=== PATIENT | female | born 1945 | race Caucasian/White ===

== ENCOUNTER → 2016-12-09 | Outpatient (CLI) | payer OTHER ==
[~2016-12-09] MED LIST: ASPCH81X PO; CLON0.2T11 PO; DILT-113 PO; GLIP-199 PO; LEVO75TA5 PO; LOSA1TAB38 PO; LVMI SC; POTA99TA PO; PRVC20 PO; VITAMIN B PO
[2016-12-09 17:27] LABS: BASO % 0.4 %; BASO ABS # 0.01 K/uL (0-0.2); COMPLETE YES; EOS % 1.5 %; HEMATOCRIT 35.3 % (37-47); LYMPH % 20.7 %; LYMPH ABS # 0.55 K/uL (1.2-3.4); MEAN CELL VOLUME 82.7 fL (80-100); MEAN CORPUSCULAR HEMOGLOBIN 27.4 pg (25-34); MEAN CORPUSCULAR HGB CONC 33.1 g/dl (32-36); MEAN PLATELET VOLUME 11.2 fL (7.4-10.4); MONO % 6.8 %; NEUT % 70.6 %; PLATELET COUNT 48 K/uL (130-400); RED BLOOD COUNT 4.27 M/uL (4.2-5.4); WHITE BLOOD COUNT 2.66 K/uL (4.8-10.8)
[2016-12-09 17:30] LABS: BLOOD UREA NITROGEN 20 mg/dl (7-18); BUN/CREATININE RATIO 14.5 (10-20); CALCIUM 9.1 mg/dl (8.5-10.1); CARBON DIOXIDE 25 mmol/L (21-32); CHLORIDE 107 mmol/L (98-107); GLUCOSE 251 mg/dl (70-99); POTASSIUM 3.8 mmol/L (3.5-5.1); SODIUM 142 mmol/L (136-145)
== END | disposition home or self-care (01) ==
LOC: C.LABBFT 13:00
PROVIDERS: ATTEND Internal Medicine
DX: I10 Essential (primary) hypertension (principal); D69.6 Thrombocytopenia, unspecified; E55.9 Vitamin D deficiency, unspecified; E11.29 Type 2 diabetes mellitus with other diabetic kidney complication

== ENCOUNTER → 2017-01-11 | Outpatient (CLI) | payer OTHER ==
[2017-01-11 12:41] LABS: ESTIMATED AVERAGE GLUCOSE 174 mg/dl; HA1C FLAG Normal (Normal)
[2017-01-11 12:52] LABS: BLOOD UREA NITROGEN 30 mg/dl (7-18); BUN/CREATININE RATIO 21.1 (10-20); CARBON DIOXIDE 30 mmol/L (21-32); CHLORIDE 104 mmol/L (98-107); GLUCOSE 259 mg/dl (70-99); POTASSIUM 4.1 mmol/L (3.5-5.1); SODIUM 139 mmol/L (136-145)
[2017-01-11 12:55] LABS: CHOLESTEROL 132 mg/dl (0-200); CHOLESTEROL/HDL RATIO 2.6; HDL CHOLESTEROL 50 mg/dl; LDL CHOLESTEROL CALCULATED 65 mg/dl; TRIGLYCERIDES 86 mg/dl (0-150); VERY LOW DENSITY LIPOPROT CALC 17 mg/dl
== END | disposition home or self-care (01) ==
LOC: C.LAB1850 11:04
PROVIDERS: ATTEND Nurse Practitioner Family
DX: E11.65 Type 2 diabetes mellitus with hyperglycemia (principal); E78.5 Hyperlipidemia, unspecified

== ENCOUNTER → 2017-02-03 | Outpatient (CLI) | payer OTHER ==
--- NOTE | 2017-02-03 09:30 | DIAGNOSTIC IMAGING REPORT ---
ULTRASOUND RIGHT UPPER QUADRANT ABDOMEN CLINICAL HISTORY: Cirrhosis. Hepatitis C. COMPARISON STUDY: Abdominal ultrasound dated 12/30/2014. Abdominal CT dated 11/16/2006. TECHNIQUE: Real-time, grayscale, and color flow sonography of the right upper quadrant of the abdomen was performed. Images are reviewed in the transverse and longitudinal planes. FINDINGS: Liver: The liver is cirrhotic in morphology and markedly heterogeneous in echotexture. There is nodularity of the surface contour. An indeterminant 1.4 cm hypoechoic nodule is suggested in the subpleural right lobe. There is no intrahepatic biliary ductal dilatation. The main portal vein is patent. Gallbladder: Calcified gallstones are identified. The largest measures at least 1.3 cm. The gallbladder is otherwise normal in appearance. There is no gallbladder wall thickening or pericholecystic fluid. A sonographic Arriaza's sign is reportedly absent. The common bile duct measures up to 0.4 cm in diameter. Pancreas: Visualized portions of the pancreatic head and body are normal in appearance. Right kidney: Survey images of the right kidney demonstrate mild cortical atrophy. There is no hydronephrosis. Ascites: None. IMPRESSION: 1. The liver is cirrhotic in morphology and markedly heterogeneous in echotexture. 2. Cholelithiasis without sonographic evidence of acute cholecystitis. 3. A 1.4 cm hypoechoic nodule is suggested in the subcapsular right hepatic lobe. This is pathologically indeterminant and likely corresponds to parenchymal scarring seen on the 2006 CT scan. Correlation with serum AFP levels is recommended. If further assessment is desired then a liver protocol CT or MRI would be appropriate. Electronically signed by: Ady Robertson M.D. 02/03/2017 9:29 AM Dictated Date/Time: 02/03/2017 9:25 AM
== END | disposition home or self-care (01) ==
LOC: C.ULTRBC 08:39
PROVIDERS: ATTEND Internal Medicine Gastroenterology
DX: B18.2 Chronic viral hepatitis C (principal); K74.60 Unspecified cirrhosis of liver; K80.20 Calculus of gallbladder without cholecystitis without obstruction

== ENCOUNTER → 2017-04-20 | Outpatient (CLI) | payer OTHER ==
[2017-04-20 15:03] LABS: ESTIMATED AVERAGE GLUCOSE 197 mg/dl; HA1C FLAG Normal (Normal)
== END | disposition home or self-care (01) ==
LOC: C.LAB1850 13:41
PROVIDERS: ATTEND Nurse Practitioner Family
DX: E11.9 Type 2 diabetes mellitus without complications (principal)

== ENCOUNTER → 2017-05-05 | Outpatient (CLI) | payer OTHER ==
[2017-05-05 17:49] LABS: HEMATOCRIT 38.9 % (37-47); MEAN CELL VOLUME 82.8 fL (80-100); MEAN CORPUSCULAR HEMOGLOBIN 26.2 pg (25-34); MEAN CORPUSCULAR HGB CONC 31.6 g/dl (32-36); MEAN PLATELET VOLUME 10.7 fL (7.4-10.4); PLATELET COUNT 72 K/uL (130-400); WHITE BLOOD COUNT 3.99 K/uL (4.8-10.8)
[2017-05-05 17:50] LABS: BASO % 0.3 %; BASO ABS # 0.01 K/uL (0-0.2); COMPLETE YES; EOS % 1.5 %; IG% 0.3 %; LYMPH % 23.1 %; LYMPH ABS # 0.92 K/uL (1.2-3.4); MONO % 6.3 %; NEUT % 68.5 %
[2017-05-05 18:49] LABS: ALT/SGPT 37 U/L (12-78); AST/SGOT 23 U/L (15-37); BLOOD UREA NITROGEN 25 mg/dl (7-18); BUN/CREATININE RATIO 18.2 (10-20); CALCIUM 8.7 mg/dl (8.5-10.1); CARBON DIOXIDE 28 mmol/L (21-32); CHLORIDE 109 mmol/L (98-107); GLUCOSE 190 mg/dl (70-99); SODIUM 143 mmol/L (136-145)
[2017-05-05 19:00] LABS: ALKALINE PHOSPHATASE 85 U/L (45-117)
[2017-05-10 12:01] LABS: AFP TUMOR MARKER SERUM 5.8 NG/ML (<6.1)
== END | disposition home or self-care (01) ==
LOC: C.LABBFT 17:38
PROVIDERS: ATTEND Internal Medicine
DX: I10 Essential (primary) hypertension (principal); E03.9 Hypothyroidism, unspecified; E78.5 Hyperlipidemia, unspecified; K74.60 Unspecified cirrhosis of liver

== ENCOUNTER → 2017-05-31 | Outpatient (CLI) | payer OTHER ==
[~2017-05-31] MED LIST changes: +OPTIRAY 320 IV PRN
--- NOTE | 2017-05-31 12:05 | DIAGNOSTIC IMAGING REPORT ---
CT ANGIOGRAM OF THE NECK CLINICAL HISTORY: Internal carotid artery stenosis. COMPARISON STUDY: No priors. TECHNIQUE: Following the IV administration of 120 of Optiray 320, CT angiogram of the neck was performed from the aortic arch to the skull base. Images are reviewed in the axial, sagittal, and coronal planes. 3-D MIPS images are created and assessed. IV contrast was administered without complication. All measurements were calculated based on NASCET criteria. CT DOSE: 519.46 mGy.cm FINDINGS: Thoracic aorta: There is atherosclerotic calcification of the thoracic aorta. Visualized portions of the thoracic aorta are normal in caliber. The aortic arch demonstrates standard 3-vessel anatomy. Subclavian arteries: Widely patent bilaterally. Right carotid arterial system: The right common carotid artery is widely patent. There is approximately 70% stenosis at the origin of the right internal carotid artery seen on axial image #252. The minimum patent abdominal diameter measures up to 2 mm. The remainder of the right internal carotid artery and the right external carotid artery are widely patent. Left carotid arterial system: The left common carotid artery is widely patent, as are the left internal and external carotid arteries. Vertebral arteries: The vertebral arteries are widely patent and codominant. Intracranial vasculature: The visualized intracranial vessels at the skull base are patent. Jugular veins: Widely patent bilaterally. Brain parenchyma: The visualized brain parenchyma the skull base is within normal limits. Lung apices: Emphysema is suggested. Imaged upper lobe lung parenchyma is otherwise clear. The pulmonary trunk is dilated measuring 3.4 cm in diameter. This suggests pulmonary artery hypertension. Soft tissues: The visualized pharyngeal soft tissues are normal in appearance noting angiographic phase technique. The oropharyngeal airway appears widely patent. The salivary and thyroid glands are normal in appearance. No cervical lymphadenopathy is seen. Skeletal structures: The skeletal structures are osteopenic. The visualized calvarium at the skull base appears intact. The imaged cervical spine is maintained noting multilevel cervical spondylosis. The mastoid air cells are well pneumatized. IMPRESSION: 1. There is approximately 70% stenosis at the origin of the right internal carotid artery. 2. The remainder of the right carotid arterial system as well as the left carotid arterial system are widely patent. 3. The vertebral arteries are patent and codominant. Electronically signed by: Ady Robertson M.D. 05/31/2017 12:04 PM Dictated Date/Time: 05/31/2017 11:55 AM
== END | disposition home or self-care (01) ==
LOC: C.CTS 10:27
PROVIDERS: ATTEND Internal Medicine
DX: I65.21 Occlusion and stenosis of right carotid artery (principal)

== ENCOUNTER → 2017-09-15 | Outpatient (CLI) | payer OTHER ==
[~2017-09-15] MED LIST changes: -OPTIRAY 320 IV PRN
--- NOTE | 2017-09-15 07:57 | DIAGNOSTIC IMAGING REPORT ---
ULTRASOUND RIGHT UPPER QUADRANT ABDOMEN CLINICAL HISTORY: Cirrhosis. COMPARISON STUDY: Abdominal ultrasound dated 02/03/2017. Abdominal CT dated 11/16/2006. TECHNIQUE: Real-time, grayscale, and color flow sonography of the right upper quadrant of the abdomen was performed. Images are reviewed in the transverse and longitudinal planes. FINDINGS: Liver: The liver is cirrhotic in morphology and heterogeneous in echotexture. There is nodularity of the hepatic surface contour. There is no intrahepatic biliary ductal dilatation. The main portal vein is patent. A 1.7 cm subcapsular hypoechoic focus is seen in the right hepatic lobe, unchanged from previous. Gallbladder: There is a calcified and shadowing mobile gallstone. Nonspecific gallbladder wall thickening is noted and is likely related to cirrhosis. There is no pericholecystic fluid. A sonographic Arriaza's sign is reportedly absent. The common bile duct measures up to 0.5 cm in diameter. Pancreas: Visualized portions of the pancreatic head and body are normal in appearance. Right kidney: Survey images of the right kidney demonstrate mild cortical atrophy. There is no hydronephrosis. Ascites: None. IMPRESSION: 1. The liver is cirrhotic in morphology and heterogeneous in echotexture. 2. Cholelithiasis without sonographic evidence of acute cholecystitis. 3. A hypoechoic nodular focus is again suggested in the subcapsular right hepatic lobe. This remains pathologically indeterminant and likely corresponds to parenchymal scarring seen on the 2006 CT scan. Continued attention at follow-up is recommended. Electronically signed by: Ady Robertson M.D. 09/15/2017 7:56 AM Dictated Date/Time: 09/15/2017 7:51 AM
== END | disposition home or self-care (01) ==
LOC: C.ULTR 07:14
PROVIDERS: ATTEND Internal Medicine Gastroenterology
DX: K74.60 Unspecified cirrhosis of liver (principal); K80.20 Calculus of gallbladder without cholecystitis without obstruction

== ENCOUNTER → 2017-10-07 | Outpatient (CLI) | payer OTHER ==
[2017-10-08 06:39] LABS: ESTIMATED AVERAGE GLUCOSE 192 mg/dl; HA1C FLAG Normal (Normal)
== END | disposition home or self-care (01) ==
LOC: C.LAB1850 13:39
PROVIDERS: ATTEND Nurse Practitioner Family
DX: E11.65 Type 2 diabetes mellitus with hyperglycemia (principal)

== ENCOUNTER → 2018-02-14 | Outpatient (CLI) | payer OTHER ==
[2018-02-14 16:56] LABS: BLOOD UREA NITROGEN 26 mg/dl (7-18); CARBON DIOXIDE 24 mmol/L (21-32); CHOLESTEROL 112 mg/dl (0-200); CREATININE 1.24 mg/dl (0.60-1.20); GLUCOSE 103 mg/dl (70-99); POTASSIUM 3.7 mmol/L (3.5-5.1); SODIUM 137 mmol/L (136-145)
[2018-02-14 17:07] LABS: LDL CHOLESTEROL CALCULATED 49 mg/dl
[2018-02-15 06:52] LABS: HEMOGLOBIN A1C 6.9 % (4.5-5.6)
== END | disposition home or self-care (01) ==
LOC: C.LAB1850 15:36
PROVIDERS: ATTEND Nurse Practitioner Family
DX: E11.65 Type 2 diabetes mellitus with hyperglycemia (principal)

== ENCOUNTER → 2018-06-27 | Outpatient (CLI) | payer OTHER ==
--- NOTE | 2018-06-27 09:12 | DIAGNOSTIC IMAGING REPORT ---
ULTRASOUND RIGHT UPPER QUADRANT ABDOMEN CLINICAL HISTORY: Cirrhosis. COMPARISON STUDY: Abdominal ultrasound dated 09/15/2017. Abdominal CT dated 11/16/2006. TECHNIQUE: Real-time, grayscale, and color flow sonography of the right upper quadrant of the abdomen was performed. Images are reviewed in the transverse and longitudinal planes. FINDINGS: Liver: The liver is cirrhotic in morphology and heterogeneous in echotexture. There is nodularity of the hepatic surface contour. There is no sonographic evidence of hepatic mass lesion. There is no intrahepatic biliary ductal dilatation. The main portal vein is patent. A 1.7 cm hypoechoic focus is again seen in the subcapsular right lobe, likely representing scarring. This is been present dating back to [address] Gallbladder: A shadowing mobile gallstone measures at least 1.4 cm. The gallbladder is otherwise normal in appearance. Mild nonspecific gallbladder wall thickening is likely related to cirrhosis, and the gallbladder wall measures up to 6 mm. There is no pericholecystic fluid. A sonographic Arriaza's sign is reportedly absent. The common bile duct measures up to 0.6 cm in diameter. Pancreas: Visualized portions of the pancreatic head and body are normal in appearance. Right kidney: Survey images of the right kidney demonstrate normal size and echotexture. There is no hydronephrosis. Ascites: None. IMPRESSION: 1. The liver is cirrhotic in morphology and heterogeneous in echotexture. 2. A 1.7 cm subcapsular hypoechoic focus is again seen in the right lobe. This has been present dating back to at least 2005 and likely represents parenchymal scarring. 3. No new hepatic mass lesion is suggested by ultrasound. 4. Mild gallbladder wall thickening is nonspecific and likely related to cirrhosis. 5. Cholelithiasis without sonographic evidence of acute cholecystitis. Electronically signed by: Ady Robertson M.D. 06/27/2018 9:11 AM Dictated Date/Time: 06/27/2018 9:05 AM
== END | disposition home or self-care (01) ==
LOC: C.ULTRBC 08:17
PROVIDERS: ATTEND Internal Medicine Gastroenterology
DX: K74.60 Unspecified cirrhosis of liver (principal); K80.20 Calculus of gallbladder without cholecystitis without obstruction

== ENCOUNTER 2024-02-16 14:21 | Inpatient (IN) ==
[2024-02-16 15:13] LABS: Albumin Level 4.4 gm/dl (3.4-5.0); Bilirubin,Total 0.6 mg/dl (0.2-1.0); Calcium 9.2 mg/dl (8.6-10.3); Potassium 4.3 mmol/L (3.5-5.1)
[2024-02-16 15:18] LABS: Basophils # (auto) 0.02 K/uL (0.00-0.20); Basophils % (auto) 0.4 %; Eosinophils # (auto) 0.04 K/uL (0.00-0.50); Eosinophils % (auto) 0.8 %; Immature Granulocytes # (auto) 0.01 K/uL (0.01-0.20); Immature Granulocytes % (auto) 0.2 %; Lymphocytes # (auto) 0.86 K/uL (1.20-3.40); Lymphocytes % (auto) 18.2 %; Mean Corpuscular Hemoglobin 26.6 pg (25.0-34.0); Mean Corpuscular Hgb Conc 31.6 g/dL (32.0-36.0); Mean Corpuscular Volume 84.3 fL (80.0-100.0); Mean Platelet Volume 11.4 fL (9.4-12.4); Monocytes # (auto) 0.18 K/uL (0.11-0.59); Monocytes % (auto) 3.8 %; Neutrophils # (auto) 3.61 K/uL (1.40-6.50); Neutrophils % (auto) 76.6 %; Platelet Count 88 K/uL (130-400); Platelet Estimate Decreased (Normal); RDW Coefficient of Variation 14.5 % (11.5-14.5); RDW Standard Deviation 43.9 fL (36.4-46.3); Red Blood Count 4.51 M/uL (4.20-5.40); White Blood Count 4.72 K/ul (4.8-10.8)
[2024-02-16 15:32] LABS: Albumin Globulin Ratio 1.3 (0.9-2); BUN Creatinine Ratio 18.7 (10-20); Creatinine Clr Calc Pharmacy 49.8 ml/min; Est GFR (Non-African American) 61.3 ml/min; Globulin 3.3 gm/dl (2.5-4.0); Total Protein 7.7 gm/dl (6.0-8.3)
--- NOTE | 2024-02-16 16:05 | XRay Report ---
XR chest 1V portable HISTORY: Dyspnea COMPARISON: Chest 05/24/2022. FINDINGS: No pneumothorax. The heart is mildly enlarged. No acute fractures. There is a small right p leural effusion. Diffuse interstitial/vascular thickening has progressed consistent with pulmonary ed freddie. There are patchy right basilar densities. IMPRESSION: 1. Cardiomegaly with mild interstitial pulmonary edema and a small right pleural effusion. 2. Patchy right basilar densities are nonspecific but favor atelectasis from the pleural effusion. A pneumonia could also have a similar appearance in the appropriate clinical setting. ACT 112: Negative or not required by law. Electronically signed by: Tamir Sofia M.D. 02/16/2024 4:04 PM
--- NOTE | 2024-02-16 16:11 | Emergency Department Note ---
Impression & Plan Coronavirus infection, Hypoxia, Pneumonia ED Provider Note NAME: MACO ROCHA AGE: 78 SEX: F : 1945 ARRIVES VIA: Walk-In INFORMANT: Patient ED PROVIDER(S): Bob Bean DO CHIEF COMPLAINT: Chest tightness and shortness of breath HPI: Patient is a 78-year-old female who presents the ER for shortness of breath which started earlier today with chest pain as well. Patient notes that this all started this morning when she woke up. The chest tightness was there as she was so short of breath. Denies any belly pain, nausea, vomiting, or diarrhea. No dysuria, urgency, or frequency. No other exacerbating or remitting factors. No swelling in the legs. Does have a history of aortic stenosis as well as diabetes asthma and hepatitis C as well as hypertrophic cardio myopathy. ADDITIONAL HISTORY OBTAINED: Per HPI Chronic Medical/Social Conditions Affecting Care: Per HPI PAST MEDICAL HISTORY:See Below PAST SURGICAL HISTORY:See Below FAMILY HISTORY:See Below SOCIAL HISTORY:See Below HOME MEDICATIONS:See Below ALLERGIES:See Below VITALS:See Below PHYSICAL EXAMINATION: GENERAL: Sitting up in bed, alert, well appearing, well nourished, no distress, non-toxic EYE EXAM: normal conjunctiva. PERRL and EOM's grossly intact. OROPHARYNX: mucous membranes are moist NECK: supple, no nuchal rigidity, no adenopathy, non-tender LUNGS: Clear to auscultation. Normal chest wall mechanics HEART: no murmurs, S1 normal and S2 normal ABDOMEN: abdomen soft, non-tender, normo-active bowel sounds, no masses, no rebound or guarding. UPPER EXTREMITIES: upper extremities are grossly normal. LOWER EXTREMITIES: No pitting edema. NEURO EXAM: Normal sensorium, cranial nerves II-XII grossly intact, normal speech, no gross weakness of arms, no gross weakness of legs. MEDICAL DECISION MAKING: Patient is a 78-year-old female with a past medical history of aortic stenosis, diabetes hypertrophic cardiomyopathy who presents to the ER for above-stated complaint. IV was established blood work was obtained. Labs showed mild leukopenia 4.7. Thrombocytopenia at 88. BMP with glucose of 326 trend down to 80. Magnesium slightly low at 1.5. Troponin elevated at 17 and the BNP elevated at 700. UA was fairly unremarkable. Viral panel positive for coronavirus 229E. Chest x-ray with bilateral infiltrates and a questionable effusion. Patient was placed on nitro due to his significant hypertension. She was given IV antibiotics updated at bedside discussed case with hospitalist admitted for further workup. Patient did remain on 2 L nasal cannula as she was slightly hypoxic. Consults/Care Managements Discussions: Per [facility] Triage Nursing notes reviewed. Limited review of prior medical records performed Vital Signs: reviewed and remarkable for hypoxic Differential diagnosis: Differential diagnoses includes but is not limited to pneumonia, bronchitis, COPD/Asthma exacerbation, pneumothorax, pulmonary embolism, congestive heart failure, acute coronary syndrome ER treatment provided: See below Diagnostics interpreted by me include EKG and cardiac monitoring as listed below: -Cardiac Monitoring: An order was placed for continuous cardiac monitoring. The monitor shows a rate of 90 with sinus rhythm. -ECG: Sinus rhythm rate [address] depressions in the lateral leads T wave inversions in the high lateral leads QTc 460 -Laboratory studies:Interpreted by me as stated above in MDM and shown below. Imaging studies: Xrays: As interpreted by me: Portable AP upright 1 view of the chest shows right lower lobe infiltrate CTs show: none Procedures:none Critical Care: I have personally spent 32 minutes of critical care time in the direct management of this patient. This includes bedside care, interpretation of diagnostic studies, and testing, discussion with consultants, patient, and family members, and other required patient management activities. This 32 minutes is in excess of all separately billable procedures. Past Med/Surg History Medical History Type 2 diabetes mellitus with obesity Asthma Chronic kidney disease, stage 3 Compensated HCV cirrhosis Hypertension Hypertrophic obstructive cardiomyopathy (HOCM) Hypothyroidism Left ventricular outflow tract obstruction Surgical History S/P hysterectomy S/P appendectomy Family History Son Myocardial infarction Other Hypertension Melanoma Denies family history of Ovarian cancer Prostate cancer Breast cancer Social History Smoking Status: Former smoker Tobacco Type: Cigars Second Hand Exposure: No; Hx Alcohol Use: No Hx Substance Use: No Preferred Language: Thai Communication Ability: Effective Visual Impairment: No Limitations Hearing Ability: Normal Lot Technician Required: No Beliefs That Will Affect Care: None marital status: Current Living Situation: Alone Current Living Situation Comment: From home alone current occupational status: retired Other Information That Helps Us Care for You: No Feels Safe at Home: Yes Safety Concerns: Feels Safe At This Time Childhood Exposure to Second-Hand Smoke: No Dental Care, Regularly: No Physical Activity Frequency: 3-4 Times per Week Seatbelt Use: always Sunscreen Use: No Assistive Devices: Glasses Allergies Allergies Allergy/AdvReac Type Severity Reaction Status Date / Time pollen extracts Allergy Unknown Unknown Verified 02/16/24 16:28 aspirin AdvReac Intermediate N/V AND Verified 02/16/24 16:28 AFFECTS LIVER Home Meds Home Medications Medication Instructions Recorded Confirmed blood sugar diagnostic (Prodigy No 03/31/23 01/31/24 Coding strips) cranberry 500 mg capsule 1,500 mg PO DAILY 02/16/24 02/16/24 Previous Rx's Medication Instructions Recorded BD Ultra-Fine Lin Pen Needle 32 #200 ea 12/24/22 gauge x 5/32" (pen needle, diabetic) diltiazem HCl 180 mg 180 mg PO BID #180 caps 02/07/23 capsule,extended release 24 hr valsartan 80 mg tablet 80 mg PO BID #180 tabs 04/14/23 lancets 30 gauge #400 ea 05/02/23 blood sugar diagnostic (True #300 strips 08/22/23 Metrix Glucose Test Strip) triamterene 37.5 1 tab PO Q2D #90 tabs 09/15/23 mg-hydrochlorothiazide 25 mg tablet insulin aspar prot-insulin aspart 7 unit (0.07 mL) subcut BID 90 11/15/23 100 unit/mL (70-30) subcutaneous days #15 mL pen metformin 500 mg tablet 500 mg PO BID #180 tabs 12/23/23 pravastatin 40 mg tablet 40 mg PO HS #90 tabs 12/23/23 clonidine 0.3 mg/24 hr weekly 1 patch transdermal WK #4 ea 01/31/24 transdermal patch clonidine HCl 0.2 mg tablet 0.2 mg PO BID PRN hypertensive 01/31/24 emergency #20 tabs semaglutide 0.25 mg or 0.5 mg (2 0.25 mg (0.368 mL) subcut Q7D #9 mL 02/08/24 mg/3 mL) subcutaneous pen injector (Ozempic) levothyroxine 88 mcg tablet 88 mcg PO DAILY #90 tabs 02/13/24 sertraline 100 mg tablet 100 mg PO DAILY #90 tabs 02/13/24 Results & Data (ED) Vital Signs Vital Signs - 24 hr 02/16/24 14:23 02/16/24 14:41 02/16/24 14:45 Temperature 36.9 C Temperature Source Oral Pulse Rate 80 Pulse Rate from SpO2 Sensor Respiratory Rate 26 H Respiratory Effort / Characteristics Non-Labored Spontaneous Respiratory Depth Normal Blood Pressure 294/94 H Blood Pressure Mean 160 Pulse Oximetry 90 89 L 95 Oxygen Delivery Method Nasal Cannula Room Air Nasal Cannula Oxygen Flow Rate 0 2 Sepsis Recent Fever Within 48 Hours No Sepsis New/Unexplained Change in Mental Status No Sepsis Action Taken by Nursing No Action Required Oxygen Flow Rate - Titration 2 Fraction of Inspired Oxygen - Titration 94 02/16/24 15:02 02/16/24 15:24 02/16/24 15:30 Temperature Temperature Source Pulse Rate 71 71 Pulse Rate from SpO2 Sensor 71 Respiratory Rate 36 H Respiratory Effort / Characteristics Respiratory Depth Blood Pressure 192/96 H Blood Pressure Mean 149 Pulse Oximetry 97 Oxygen Delivery Method Oxygen Flow Rate Sepsis Recent Fever Within 48 Hours Sepsis New/Unexplained Change in Mental Status Sepsis Action Taken by Nursing Oxygen Flow Rate - Titration Fraction of Inspired Oxygen - Titration 02/16/24 15:30 02/16/24 16:00 02/16/24 16:00 Temperature Temperature Source Pulse Rate 67 68 Pulse Rate from SpO2 Sensor 66 68 Respiratory Rate 27 H 26 H Respiratory Effort / Characteristics Respiratory Depth Blood Pressure 199/109 H Blood Pressure Mean 173 Pulse Oximetry 93 93 Oxygen Delivery Method Nasal Cannula Oxygen Flow Rate 2 Sepsis Recent Fever Within 48 Hours Sepsis New/Unexplained Change in Mental Status Sepsis Action Taken by Nursing Oxygen Flow Rate - Titration Fraction of Inspired Oxygen - Titration 02/16/24 16:01 02/16/24 16:01 02/16/24 16:30 Temperature Temperature Source Pulse Rate 67 Pulse Rate from SpO2 Sensor 67 Respiratory Rate 25 H Respiratory Effort / Characteristics Respiratory Depth Blood Pressure 193/91 H 197/99 H Blood Pressure Mean 165 144 Pulse Oximetry 93 Oxygen Delivery Method Nasal Cannula Oxygen Flow Rate 2 Sepsis Recent Fever Within 48 Hours Sepsis New/Unexplained Change in Mental Status Sepsis Action Taken by Nursing Oxygen Flow Rate - Titration Fraction of Inspired Oxygen - Titration 02/16/24 16:30 02/16/24 17:00 02/16/24 17:00 Temperature Temperature Source Pulse Rate 66 63 Pulse Rate from SpO2 Sensor 66 62 Respiratory Rate 22 23 Respiratory Effort / Characteristics Respiratory Depth Blood Pressure 206/82 H Blood Pressure Mean 149 Pulse Oximetry 95 95 Oxygen Delivery Method Room Air Oxygen Flow Rate Sepsis Recent Fever Within 48 Hours Sepsis New/Unexplained Change in Mental Status Sepsis Action Taken by Nursing Oxygen Flow Rate - Titration Fraction of Inspired Oxygen - Titration Laboratory Data 02/16/24 14:26 02/16/24 14:26 Lab Results 02/16/24 02/16/24 Range/Units 14:26 14:58 WBC 4.72 L (4.8-10.8) K/ul RBC 4.51 (4.20-5.40) M/uL Hgb 12.0 (12.0-16.0) g/dl Hct 38.0 (37.0-47.0) % MCV 84.3 (80.0-100.0) fL MCH 26.6 (25.0-34.0) pg MCHC 31.6 L (32.0-36.0) g/dL RDW Std Deviation 43.9 (36.4-46.3) fL RDW Coeff of Luther 14.5 (11.5-14.5) % Plt Count 88 L (130-400) K/uL MPV 11.4 (9.4-12.4) fL Immature Gran % (Auto) 0.2 % Neut % (Auto) 76.6 % Lymph % (Auto) 18.2 % [place] % (Auto) 3.8 % Eos % (Auto) 0.8 % Baso % (Auto) 0.4 % Neut # (Auto) 3.61 (1.40-6.50) K/uL Lymph # (Auto) 0.86 L (1.20-3.40) K/uL [place] # (Auto) 0.18 (0.11-0.59) K/uL Eos # (Auto) 0.04 (0.00-0.50) K/uL Baso # (Auto) 0.02 (0.00-0.20) K/uL Immature Gran # (Auto) 0.01 (0.01-0.20) K/uL Platelet Estimate Decreased L (Normal) Sodium 136 (136-145) mmol/L Potassium 4.3 (3.5-5.1) mmol/L Chloride 103 (98-107) mmol/L Carbon Dioxide 25 (21-32) mmol/L Anion Gap 8 (3-11) BUN 17 (6-23) mg/dl Creatinine 0.91 (0.6-1.2) mg/dl Est Cr Clr Drug Dosing 49.8 ml/min Est GFR ( Amer) 71.0 ml/min Est GFR (Non-Af Amer) 61.3 ml/min BUN/Creatinine Ratio 18.7 (10-20) Glucose 306 H* (70-99(Fasting)) mg/dl Calcium 9.2 (8.6-10.3) mg/dl Magnesium 1.5 L (1.7-2.4) mg/dl Total Bilirubin 0.6 (0.2-1.0) mg/dl AST 24 (13-39) U/L ALT 22 (7-52) U/L Alkaline Phosphatase 69 (34-104) U/L Troponin I High Sens 17.8 H (0-14) pg/ml Total Protein 7.7 (6.0-8.3) gm/dl Albumin 4.4 (3.4-5.0) gm/dl Globulin 3.3 (2.5-4.0) gm/dl Albumin/Globulin Ratio 1.3 (0.9-2) Procalcitonin < 0.02 (0-0.5) ng/ml Urine Color Yellow Urine Appearance Clear (Clear) Urine pH 6.0 (4.5-7.5) Ur Specific [place] 1.011 (1.000-1.030) Urine Protein Negative (Negative) Urine Glucose (UA) 1+ H (Negative) Urine Ketones Negative (Negative) Urine Blood Trace H (Negative) Urine Nitrite Negative (Negative) Urine Bilirubin Negative (Negative) Urine Urobilinogen Negative (Negative) Ur Leukocyte Esterase Negative (Negative) Urine WBC (Auto) 10-30 H (0-5) /hpf Urine RBC (Auto) 0-4 (0-4) /hpf U Hyaline Cast (Auto) 0 (0-5) /lpf U Epithel Cells (Auto) >30 H (0-5) /lpf Urine Bacteria (Auto) Negative (Negative) Ur Renal Epithelial Cell Not Reportable Administered Medications Diltiazem HCl (Diltiazem Hcl 180 Mg Capcr) 180 mg PO BID PARVEZ Stop: 03/17/24 20:59 Last Admin: 02/16/24 21:14 Dose: 180 mg Documented By: MOUNA Guaifenesin (Guaifenesin 600 Mg Tabcr) 600 mg PO BID PARVEZ Stop: 03/17/24 20:59 Last Admin: 02/16/24 21:14 Dose: 600 mg Documented By: MOUNA Methylprednisolone 40 mg/ (Syringe) 0.64 mls @ 1.5 mls/min IV Q12H PARVEZ Stop: 03/17/24 20:59 Last Admin: 02/16/24 21:16 Dose: 1.5 mls/min Documented By: MOUNA Discontinued Medications Clonidine HCl (Clonidine Hcl 0.1 Mg Tab) 0.2 mg PO NOW ONE Stop: 02/16/24 17:19 Last Admin: 02/16/24 17:53 Dose: 0.2 mg Documented By: ED Ceftriaxone Sodium (Rocephin) 2,000 mg in 50 mls @ 100 mls/hr IV NOW STA Stop: 02/16/24 16:43 Last Infusion: 02/16/24 17:06 Dose: Infused Documented By: Admin: 02/16/24 16:32 Dose: 100 mls/hr Documented By: ED Azithromycin 500 mg/ Dextrose 255 mls @ 127.5 mls/hr IV NOW STA Stop: 02/16/24 18:13 Last Infusion: 02/16/24 19:07 Dose: Infused Documented By: Admin: 02/16/24 17:05 Dose: 127.5 mls/hr Documented By: GENESIS Magnesium Sulfate/Dextrose (Magnesium Sulfate / D5w) 1 gm in 100 mls @ 50 mls/hr IV Q2H PARVEZ Stop: 02/16/24 21:14 Last Admin: 02/16/24 21:11 Dose: 50 mls/hr Documented By: Infusion: 02/16/24 20:12 Dose: Infused Documented By: Admin: 02/16/24 17:53 Dose: 50 mls/hr Documented By: ED Nitroglycerin (Nitroglycerin 2% Ointment 30gm Tube) 1 inch EXT Q6H PARVEZ Stop: 03/17/24 16:14 Last Admin: 02/16/24 16:32 Dose: 1 inch Documented By: ED Imaging Data Radiologist's Impression: Chest X-Ray 02/16/24 14:44 XR chest 1V portable HISTORY: Dyspnea COMPARISON: Chest 05/24/2022. FINDINGS: No pneumothorax. The heart is mildly enlarged. No acute fractures. There is a small right pleural effusion. Diffuse interstitial/vascular thickening has progressed consistent with pulmonary edema. There are patchy right basilar densities. IMPRESSION: 1. Cardiomegaly with mild interstitial pulmonary edema and a small right pleural effusion. 2. Patchy right basilar densities are nonspecific but favor atelectasis from the pleural effusion. A pneumonia could also have a similar appearance in the appropriate clinical setting. ACT 112: Negative or not required by law. Electronically signed by: Tamir Sofia M.D. 02/16/2024 4:04 PM Discharge Plan Visit Data Chief Complaint: Shortness of Breath/Dyspnea Stated Complaint: POS PNEUMONIA, SOB ED Provider: Bob Bean Discharge Problem: Coronavirus infection, Hypoxia, Pneumonia Patient Disposition: Admitted As Inpatient Discharge Instructions Interventions: ED Discharge Assessment Last Done: 02/16/24 18:15 Discharge Problem: Pneumonia Qualifiers: Pneumonia type: due to unspecified organism Laterality: unspecified laterality Lung location: unspecified part of lung Qualified Code(s): J18.9 - Pneumonia, unspecified organism
--- NOTE | 2024-02-16 16:24 | History & Physical Report ---
Date of Service February 16, 2024 Assessment & Plan (1) Coronavirus infection: Plan: Acute onset of MONTOYA and conversational dyspnea the morning of 02/15 Coronavirus 229e (+) on arrival No leukocytosis; afebrile Isolation precautions Supplemental oxygen as needed to maintain SpO2 >94% Continuous pulse oximetry Guaifenesin 600 mg p.o. BID for cough Duoneb 3mL q6r for wheezing A.m. CBC, BMP, mag (2) Asthma exacerbation: Plan: Exacerbated by #1 Solu-Medrol 40 mg IV BID DuoNeb 3 mL QIDR (3) Hypomagnesemia: Plan: Mag low at 1.5 on arrival Mag sulf 1gm x 3 Recheck am lab (4) Labile hypertension: Plan: Patient can continue clonidine 0.2 mg p.o. BID as needed for HTN Labetalol 5mg IV q6h as needed for HTN emergency Continue diltiazem PCU status in the event that IV anti-hypertensives are needed (5) Thrombocytopenia: Plan: Chronic; platelets 88 on arrival (6) Pleural effusion: Plan: CXR revealed mild interstitial pulmonary edema and small right pleural effusion BNP elevated at 708 (no prior for comparison) Last echo > 70% LVEF in 07/2023 Will trial Lasix 40 mg p.o. x 1 Caution overdiuresis given HOCM (7) Hypertrophic obstructive cardiomyopathy (HOCM): Plan: Chronic; noted Caution diuretics (as above) (8) Depression with anxiety: (9) Dyslipidemia: (10) Hypothyroidism: (11) Chronic kidney disease, stage 3: Plan Disposition: Admit to PCU telemetry DNR/DNI T2DM, AHA diet VTE PPx: Heparin 5000u SQ q12h History of Present Illness Chief Complaint: SOB/dyspnea Primary Care Provider: Katelyn Stark MD Leeann is a 78-year-old female with PMH of HOCM, labile HTN, mitral regurgitation, dyslipidemia, T2DM, asthma, hypothyroidism, depression with anxiety, and CKD stage III. She presented for SOB and chest tightness that developed around 0330 on 02/15. Patient reports that she woke up and went to the kitchen, but had MONTOYA. It has been constant since then, and she has become increasingly conversationally dyspneic. She denies having SOB at rest, and reports that is not worse when lying flat. She has been having a congestive cough /fits of coughing, that often lead to substernal chest tightness. She tried applying Vicks VapoRub on her chest, as well as a warm towel, but this did not help. She denies chest pain, and believes that the chest tightness does not radiate to her arms or to her back. Patient took all of her regular morning medications, including her insulin. Only recent change in medications was increasing her thyroid medication and starting on sertraline. It should be noted that patient takes clonidine 0.2 mg tablets BID or TID as needed for high blood pressure; she reports that she does have a BP cuff at home, but usually can tell if her blood pressure is high due to headache that comes on. She has been taking clonidine 0.2 mg 2-3x per day regularly. Patient does not wear supplemental oxygen at baseline. She notes that this feels similar to past experiences of bronchitis; she reports that she tends to have bronchitis in the wintertime. She denies smoking, tobacco use, and alcohol use. No sick c ontacts. She did not have any trouble breathing yesterday. She denies PMH of HI, CVA, DVT/PE, and cancer. Patient is hypertensive at 193/91 and tachypneic at 25 RPM at time of admission. ED course: Azithromycin 500 mg IV Rocephin 2000 mg IV Nitro-Bid 2% 1 inch ROS: Patient endorses chest tightness, pleuritic CP, productive cough, sore throat, lightheaded with walking, MONTOYA, nausea, and diarrhea x 2 days (patient attributes to something she ate a couple days ago). Patient denies fever, chills, nightsweats, dizziness/lightheaded at rest, THOMPSON, hemoptysis, left arm/shoulder/jaw pain, chest pain, chest palpitations, abdominal pain, vomiting, burning with urination, dysuria, or numbness/tingling/pain in legs. Allergies Allergy/AdvReac Type Severity Reaction Status Date / Time pollen extracts Allergy Unknown Unknown Verified 02/16/24 16:28 aspirin AdvReac Intermediate N/V AND Verified 02/16/24 16:28 AFFECTS LIVER Home Medications Medication Instructions Recorded Confirmed Type BD Ultra-Fine Lin Pen Needle 32 #200 ea 12/24/22 01/31/24 Rx gauge x 532" (pen needle, diabetic) diltiazem HCl 180 mg 180 mg PO BID #180 caps 02/07/23 02/16/24 Rx capsule,extended release 24 hr blood sugar diagnostic (Prodigy No 03/31/23 01/31/24 History Coding strips) valsartan 80 mg tablet 80 mg PO BID #180 tabs 04/14/23 02/16/24 Rx lancets 30 gauge #400 ea 05/02/23 01/31/24 Rx blood sugar diagnostic (True #300 strips 08/22/23 01/31/24 Rx Metrix Glucose Test Strip) triamterene 37.5 1 tab PO Q2D #90 tabs 09/15/23 02/16/24 Rx mg-hydrochlorothiazide 25 mg tablet insulin aspar prot-insulin aspart 7 unit (0.07 mL) subcut BID 90 11/15/23 02/16/24 Rx 100 unit/mL (70-30) subcutaneous days #15 mL pen metformin 500 mg tablet 500 mg PO BID #180 tabs 12/23/23 02/16/24 Rx pravastatin 40 mg tablet 40 mg PO HS #90 tabs 12/23/23 02/16/24 Rx clonidine 0.3 mg/24 hr weekly 1 patch transdermal WK #4 ea 01/31/24 02/16/24 Rx transdermal patch clonidine HCl 0.2 mg tablet 0.2 mg PO BID PRN hypertensive 01/31/24 02/16/24 Rx emergency #20 tabs semaglutide 0.25 mg or 0.5 mg (2 0.25 mg (0.368 mL) subcut Q7D #9 mL 02/08/24 02/16/24 Rx mg/3 mL) subcutaneous pen injector (Ozempic) levothyroxine 88 mcg tablet 88 mcg PO DAILY #90 tabs 02/13/24 02/16/24 Rx sertraline 100 mg tablet 100 mg PO DAILY #90 tabs 02/13/24 02/16/24 Rx cranberry 500 mg capsule 1,500 mg PO DAILY 02/16/24 02/16/24 History Past Med/Surg History Medical History Type 2 diabetes mellitus with obesity Asthma Chronic kidney disease, stage 3 Compensated HCV cirrhosis Hypertension Hypertrophic obstructive cardiomyopathy (HOCM) Hypothyroidism Left ventricular outflow tract obstruction Surgical History S/P hysterectomy S/P appendectomy Family History Son Myocardial infarction Other Hypertension Melanoma Denies family history of Ovarian cancer Prostate cancer Breast cancer Social History Smoking Status: Former smoker Tobacco Type: Cigars Second Hand Exposure: No; Hx Alcohol Use: No Hx Substance Use: No Preferred Language: Eritrean Communication Ability: Effective Visual Impairment: No Limitations Hearing Ability: Normal Coating Mixer Required: No Beliefs That Will Affect Care: None marital status: Current Living Situation: Alone Current Living Situation Comment: From home alone current occupational status: retired Other Information That Helps Us Care for You: No Feels Safe at Home: Yes Safety Concerns: Feels Safe At This Time Childhood Exposure to Second-Hand Smoke: No Dental Care, Regularly: No Physical Activity Frequency: 3-4 Times per Week Seatbelt Use: always Sunscreen Use: No Assistive Devices: Glasses Review of Systems Review of Systems: See HPI above Physical Exam Physical Exam: General: Moderate respiratory distress; coughing spells that last for 10 to 15 seconds; non-toxic appearing; cooperative; 97% SpO2 on 2L NC HEENT: normocephalic, atraumatic; no scleral icterus; PERRLA; moist mucus membrane; vision and hearing grossly intact Neck: supple; negative for JVD; no lymphadenopathy; trachea midline Skin: warm, dry without signs of tenting; no cyanosis; no rashes, bruising, lesions, or erythema noted CV: chest wall NTP; RRR; S1/S2 normal; 2/6 ejection murmur auscultated at the second ICS MCL; pulses intact and symmetric at radial, DP, and PT Lungs: Moderate acute respiratory distress; conversationally dyspneic; symmetrical chest wall expansion; expiratory wheeze across all lung culver bilaterally ABD: Soft, NTP; BS present; no rebound/guarding; no distention MSK: no tics or fasciculations; no edema noted in the LEs b/l, nonerythematous Neuro: A&Ox3; normal mood and affect; fluent speech; no focal deficits; sensation grossly intact in the LEs b/l Results & Data Results & Data Vital Signs (Past 12 Hours) Vital Signs Temp Pulse Resp BP Pulse Ox O2 Del Method O2 Flow Rate 02/16/24 16:01 193/91 H 02/16/24 16:01 67 25 H 93 Nasal Cannula 2 02/16/24 16:00 68 26 H 93 02/16/24 16:00 199/109 H 02/16/24 15:30 67 27 H 93 Nasal Cannula 2 02/16/24 15:30 192/96 H 02/16/24 15:24 71 02/16/24 15:02 71 36 H 97 02/16/24 14:45 95 Nasal Cannula 2 02/16/24 14:41 89 L Room Air 0 02/16/24 14:23 36.9 C 80 26 H 294/94 H 90 Nasal Cannula Laboratory Results Abnormal lab results 02/16/24 02/16/24 02/16/24 Range/Units 14:26 14:58 17:16 WBC 4.72 L (4.8-10.8) K/ul MCHC 31.6 L (32.0-36.0) g/dL Plt Count 88 L (130-400) K/uL Lymph # (Auto) 0.86 L (1.20-3.40) K/uL Platelet Estimate Decreased L (Normal) Glucose 306 H* (70-99(Fasting)) mg/dl Magnesium 1.5 L (1.7-2.4) mg/dl Troponin I High Sens 17.8 H (0-14) pg/ml Urine Glucose (UA) 1+ H (Negative) Urine Blood Trace H (Negative) Urine WBC (Auto) 10-30 H (0-5) /hpf U Epithel Cells (Auto) >30 H (0-5) /lpf Coronavirus 229E (PCR) DETECTED A (NotDetected) Diagnostic Findings Chest X-Ray 02/16/24 14:44 XR chest 1V portable HISTORY: Dyspnea COMPARISON: Chest 05/24/2022. FINDINGS: No pneumothorax. The heart is mildly enlarged. No acute fractures. There is a small right pleural effusion. Diffuse interstitial/vascular thickening has progressed consistent with pulmonary edema. There are patchy right basilar densities. IMPRESSION: 1. Cardiomegaly with mild interstitial pulmonary edema and a small right pleural effusion. 2. Patchy right basilar densities are nonspecific but favor atelectasis from the pleural effusion. A pneumonia could also have a similar appearance in the appropriate clinical setting. ACT 112: Negative or not required by law. Electronically signed by: Tamir Sofia M.D. 02/16/2024 4:04 PM Code Status & VTE Plan Code Status DNR/DNI VTE Prophylaxis Plan VTE Prophylaxis will be ordered: Yes Supervising Physician Co-Signing Physician Notes Patient seen and examined, chart reviewed, case discussed with Tamir Valdivia and I agree with the assessment and plan as above except as otherwise noted Labs and images reviewed Leeann is a 78-year-old female with past medical history of asthma, CKD 3, DM 2, HOCM/LVOT who presents with dyspnea and is found to be non-COVID coronavirus positive. She is hypomagnesemic, will optimize to goal of 2.0. She is non- COVID coronavirus positive, supportive care plus treatment of asthma exacerbation. Does not have leukocytosis, does have patchy right basilar densities nonspecific? Associated with pulmonary edema versus pneumonia versus viral. Procalcitonin is negative. Received empiric azithromycin/Rocephin on admission. Given positive coronavirus, no leukocytosis, normal Pro-John low suspicion for superimposed bacterial pneumonia will defer additional antibiotics this and follow progression at this time. Agree with treating asthma exacerbation with steroids/DuoNebs at this time. Mild CHF is noted, given concurrent HOCM will diurese cautiously. trop17.8 with repeat pending, suspect demand. Has a history of poorly controlled hypertension as an outpatient. Is on diltiazem, clonidine twice daily anticipating switching to a patch next week, try triuamhydrochlorothiazide every other day, and valsartan twice a day. No history of renal artery stenosis or potassium derangements. She did take her normal morning medications today, did not take triam-hctz. Initially with some improvement following clonidine dose however remains hypertensive, asymptomatic. No headache lightheadedness dizziness or chest pain at time of bedside reevaluation. Patient's evening medications have been ordered including di ltiazem, valsartan and did order her try triam as she did not take this today. If she remains severely hypertensive then labetalol has been added for additional control. Will get a dose of Lasix subsequent to this, discussed with nursing at bedside and these will be staggered to prevent/pneumonitis risk of precipitous drop. Otherwise agree with assessment as above. Patient initially refused insulin at the bedside, as she notes the pain is much more comfortable. On revisiting her BSG and inpatient send control is agreeable to basal bolus insulin. PG Care Time/CCT Total # of Minutes Spent Total Time Spent with Patient: Total time spent is greater than 50% in coordination of care (as documented) at patient's floor/unit and/or counseling patient: C[place] [address] INT INP/OBS CARE 3/75MIN Patient Type Established History Comprehensive Exam Comprehensive Medical Decision Making High Complexity Diagnoses Coronavirus infection B34.2 Asthma exacerbation J45.901 Hypomagnesemia E83.42 Labile hypertension R09.89 Thrombocytopenia D69.6 Pleural effusion J90 Hypertrophic obstructive cardiomyopathy (HOCM) I42.1 Depression with anxiety F41.8 Dyslipidemia E78.5 Hypothyroidism E03.9 Chronic kidney disease, stage 3 N18.3
[2024-02-16] MEDS: NITROGLYCERIN 2% OINTMENT 30GM TUBE EXT SCH (16:32)
[2024-02-16] MEDS: cefTRIAXone SODIUM 2,000 MG/50 ML BAG IV STA (16:32)
[2024-02-16] MEDS: AZITHROMYCIN 500 MG in DEXTROSE 5% 250 ML IV STA (17:05)
[2024-02-16 17:40] LABS: Appearance Urine Clear (Clear); Bacteria Urine Automated Negative (Negative); Bilirubin Urine Negative (Negative); Blood Urine Trace (Negative); Cast Urine Automated 0 /lpf (0-5); Color Urine Yellow; Epithelial Cell Urine Auto >30 /lpf (0-5); Glucose Urine UA 1+ (Negative); Ketones Urine Negative (Negative); Leukocyte Esterase Urine Negative (Negative); Nitrite Urine Negative (Negative); Protein Urine Negative (Negative); RBC Urine Automated 0-4 /hpf (0-4); Specific Gravity Urine 1.011 (1.000-1.030); Urobilinogen Urine Negative (Negative)
[2024-02-16] MEDS: cloNIDine HCL 0.1 MG TAB PO ONE (17:53)
[2024-02-16] MEDS: MAGNESIUM SULFATE / D5W 1 GM/100 ML BAG IV SCH (17:53)
[2024-02-16 18:20] LABS: Adenovirus PCR Not Detected (NotDetected); Bordetella parapertussis PCR Not Detected (NotDetected); Bordetella pertussis PCR Not Detected (NotDetected); Chlamydia pneumoniae PCR Not Detected (NotDetected); Coronavirus 229E PCR DETECTED (NotDetected); Coronavirus CoV-2 (COVID19)PCR Not Detected (NotDetected); Coronavirus HKU1 PCR Not Detected (NotDetected); Coronavirus NL63 PCR Not Detected (NotDetected); Coronavirus OC43PCR Not Detected (NotDetected); Human Metapneumovirus PCR Not Detected (NotDetected); Influenza A PCR Not Detected (NotDetected); Influenza B PCR Not Detected (NotDetected); Mycoplasma pneumoniae PCR Not Detected (NotDetected); Parainfluenza Virus 1 PCR Not Detected (NotDetected); Parainfluenza Virus 2 PCR Not Detected (NotDetected); Parainfluenza Virus 3 PCR Not Detected (NotDetected); Parainfluenza Virus 4 PCR Not Detected (NotDetected); Respiratory Syncytial VirusPCR Not Detected (NotDetected); Rhinovirus/Enterovirus PCR Not Detected (NotDetected)
[2024-02-16] MEDS ORDERED: cloNIDine HCL 0.2 MG TAB PO PRN (19:51)
[2024-02-16] MEDS ORDERED: GLUCAGON FOR INJ 1 MG VIAL SQ PRN (19:51)
[2024-02-16] MEDS ORDERED: DEXTROSE 50% 50 ML SYRINGE IV PRN (19:51)
[2024-02-16] MEDS ORDERED: GLUCOSE 10 TAB/TUBE PO PRN (19:51)
[2024-02-16] MEDS ORDERED: PHARMACY GLYCEMIC MGMT CONSULT PRN (19:51)
[2024-02-16] MEDS ORDERED: GLUCOSE 40% GEL 15 GM TUBE PO PRN (19:51)
[2024-02-16] MEDS ORDERED: CARBOHYDRATES FOR HYPOGLYCEMIA PO PRN (19:51)
[2024-02-16] MEDS: dilTIAZem HCL 180 MG CAPCR PO SCH (21:14)
[2024-02-16] MEDS: guaiFENesin 600 MG TABCR PO SCH (21:14)
[2024-02-16] MEDS: methylPREDNISolone 40 MG in SYRINGE 0 ML IV SCH (21:16)
[2024-02-16] MEDS: FUROSEMIDE 40 MG TAB PO ONE (21:30)
[2024-02-16] MEDS: HEPARIN SOD 5,000 UNIT/0.5 ML VIAL SQ SCH (21:32)
[2024-02-16] MEDS: INSULIN ASPART PER UNIT CHARGE SC SCH (21:32)
[2024-02-16] MEDS: LANTUS PER UNIT CHARGE SQ SCH (21:33)
[2024-02-16] MEDS: VALSARTAN 80 MG TAB PO SCH (21:38)
[2024-02-16] MEDS: PRAVASTATIN SOD 40 MG TAB PO SCH (21:38)
[2024-02-17] MEDS: LABETALOL HCL IV 5 MG/ML 20ML IV PRN (00:26)
[2024-02-17 04:37] LABS: Basophils # (auto) 0.01 K/uL (0.00-0.20); Basophils % (auto) 0.3 %; Eosinophils # (auto) 0.01 K/uL (0.00-0.50); Eosinophils % (auto) 0.3 %; Hematocrit (blood only) 35.2 % (37.0-47.0); Hemoglobin 10.9 g/dl (12.0-16.0); Immature Granulocytes # (auto) 0.01 K/uL (0.01-0.20); Immature Granulocytes % (auto) 0.3 %; Lymphocytes # (auto) 0.54 K/uL (1.20-3.40); Lymphocytes % (auto) 17.3 %; Mean Corpuscular Hemoglobin 26.1 pg (25.0-34.0); Mean Corpuscular Volume 84.2 fL (80.0-100.0); Mean Platelet Volume 11.9 fL (9.4-12.4); Monocytes # (auto) 0.08 K/uL (0.11-0.59); Monocytes % (auto) 2.6 %; Neutrophils # (auto) 2.48 K/uL (1.40-6.50); Neutrophils % (auto) 79.2 %; Platelet Count 71 K/uL (130-400); RDW Coefficient of Variation 14.4 % (11.5-14.5); RDW Standard Deviation 43.8 fL (36.4-46.3); Red Blood Count 4.18 M/uL (4.20-5.40); White Blood Count 3.13 K/ul (4.8-10.8)
[2024-02-17] MEDS: LABETALOL HCL IV 5 MG/ML 20ML IV STA (04:38)
[2024-02-17] MEDS: cloNIDine HCL 0.1 MG TAB PO PRN (04:52)
[2024-02-17 04:55] LABS: BUN Creatinine Ratio 17.3 (10-20); Calcium 9.2 mg/dl (8.6-10.3); Creatinine Clr Calc Pharmacy 43.6 ml/min; Est GFR (African American) 60.4 ml/min; Est GFR (Non-African American) 52.1 ml/min; Magnesium 2.1 mg/dl (1.7-2.4); Potassium 4.3 mmol/L (3.5-5.1)
[2024-02-17] MEDS: LEVOTHYROXINE SODIUM 88 MCG TABLET PO SCH (06:13)
[2024-02-17] MEDS: ALBUT/IPRATROP 3MG/0.5MG NEB 3 ML VIAL NEB SCH (07:25)
[2024-02-17] MEDS ORDERED: INFLUENZA VACCINE HIGH-DOSE (HD-IIV4) PF 65+ 0.7mL SYR IM ONE (08:00)
[2024-02-17] MEDS: TRIAMTERENE/HCTZ 37.5/25MG TAB PO SCH (08:57)
[2024-02-17] MEDS: SERTRALINE HCL 100 MG TABLET PO SCH (08:57)
--- NOTE | 2024-02-17 10:02 | Hospitalist Progress Note ---
Date of Service February 17, 2024 Assessment & Plan (1) Asthma exacerbation: Plan: Patient presents to the hospital on account of worsening shortness of breath and wheeze Tested positive for coronavirus 22e Started on Solu-Medrol 40 mg IV BID DuoNeb 3 mL QIDR No extra wheeze on exam Patient feels much better (2) Coronavirus infection: Plan: Acute onset of MONTOYA and conversational dyspnea the morning of 02/15 Coronavirus 229e (+) on arrival No leukocytosis; afebrile No need for isolation Continue supplemental oxygen as needed to maintain SpO2 >94% Currently on 2 L of oxygen through nasal cannula, usually not on oxygen at home Wean oxygen as tolerated Continuous pulse oximetry Guaifenesin 600 mg p.o. BID for cough Duoneb 3mL q6r for wheezing (3) Hypomagnesemia: Plan: Repleted (4) Labile hypertension: Plan: Blood pressure still around 171/61 Patient can continue clonidine 0.2 mg p.o. BID as needed for HTN Labetalol 5mg IV q6h as needed for HTN emergency Continue diltiazem (5) Thrombocytopenia: Plan: Chronic; platelets 88 on arrival (6) Pleural effusion: Plan: CXR revealed mild interstitial pulmonary edema and small right pleural effusion BNP elevated at 708 (no prior for comparison) Last echo > 70% LVEF in 07/2023 Will trial Lasix 40 mg p.o. x 1 Caution overdiuresis given HOCM (7) Hypertrophic obstructive cardiomyopathy (HOCM): Plan: Chronic; noted Caution diuretics (as above) (8) Depression with anxiety: (9) Dyslipidemia: (10) Hypothyroidism: (11) Chronic kidney disease, stage 3: Plan Disposition: Continue hospitalization, hopefully discharge in next 24 to 48 hours DNR/DNI T2DM, AHA diet VTE PPx: Heparin 5000u SQ q12h Admission and Anticipated Discharge Date Admission Date: February 16, 2024 Subjective Patient seen and examined today, states shortness of breath and wheeze much better, denies cough Review of Systems Review of Systems: All systems reviewed are negative, apart from the ones contained in the history. Physical Exam Physical Exam: The patient is awake, alert and oriented 3, well developed and well nourished, normocephalic and atraumatic, lying in bed and in no acute distress. HEENT--PERRL, EOMI, mucous membranes and oropharynx mildly dry Neck--supple. No JVD. No bruits. Thyroid normal, trachea midline, no adenopathy. Heart--normal S1 and S2. No murmurs, rubs or gallops. Lungs--clear bilaterally, no respiratory distress, no accessory muscle use. Abdomen--normal bowel sounds and soft. Extremities--no cyanosis or clubbing. No edema. Dermatologic--normal skin turgor, normal color, no abnormal lymph nodes, no rash. Neurologic--cranial nerves II through XII grossly intact. Rheumatologic--normal range of motion. Psychiatric--normal affect. Results & Data Results & Data Vital Signs (Past 12 Hours) Vital Signs Temp Pulse Pulse Resp BP Pulse Ox O2 Del Method 02/17/24 07:26 62 16 96 Nasal Cannula 02/17/24 06:00 51 L 15 94 02/17/24 05:30 51 L 17 94 02/17/24 05:01 53 L 18 92 02/17/24 05:01 171/61 H 02/17/24 05:00 52 L 16 93 02/17/24 04:30 52 L 17 93 02/17/24 04:10 63 20 93 02/17/24 04:10 206/79 H 02/17/24 04:10 206/79 H 02/17/24 04:01 54 L 17 93 02/17/24 04:00 55 L 14 94 02/17/24 03:30 53 L 17 93 02/17/24 03:01 54 L 18 93 02/17/24 03:01 199/89 H 02/17/24 03:00 53 L 16 94 02/17/24 02:30 53 L 17 93 02/17/24 02:01 204/73 H 02/17/24 02:01 53 L 19 90 02/17/24 02:00 53 L 18 91 02/17/24 01:30 53 L 17 91 02/17/24 01:01 201/90 H 02/17/24 01:01 58 L 27 H 90 02/17/24 01:00 59 L 27 H 91 02/17/24 00:45 62 222/75 H 02/17/24 00:30 61 19 92 02/17/24 00:26 62 222/75 H 02/17/24 00:25 64 15 02/17/24 00:25 222/75 H 02/17/24 00:02 271/137 H 02/17/24 00:02 65 19 87 L 02/17/24 00:00 69 26 H 92 02/16/24 23:30 74 28 H 94 02/16/24 23:00 55 L 23 91 02/16/24 23:00 195/68 H 02/16/24 22:45 98.3 F 02/16/24 22:30 60 33 H 95 02/16/24 22:01 56 L 28 H 94 02/16/24 22:01 195/83 H 02/16/24 22:00 56 L 28 H O2 Flow Rate 02/17/24 07:26 2 02/17/24 06:00 02/17/24 05:30 02/17/24 05:01 02/17/24 05:01 02/17/24 05:00 02/17/24 04:30 02/17/24 04:10 02/17/24 04:10 02/17/24 04:10 02/17/24 04:01 02/17/24 04:00 02/17/24 03:30 02/17/24 03:01 02/17/24 03:01 02/17/24 03:00 02/17/24 02:30 02/17/24 02:01 02/17/24 02:01 02/17/24 02:00 02/17/24 01:30 02/17/24 01:01 02/17/24 01:01 02/17/24 01:00 02/17/24 00:45 02/17/24 00:30 02/17/24 00:26 02/17/24 00:25 02/17/24 00:25 02/17/24 00:02 02/17/24 00:02 02/17/24 00:00 02/16/24 23:30 02/16/24 23:00 02/16/24 23:00 02/16/24 22:45 02/16/24 22:30 02/16/24 22:01 02/16/24 22:01 02/16/24 22:00 PG Care Time/CCT Total # of Minutes Spent Total Time Spent with Patient: Total time spent is greater than 50% in coordination of care (as documented) at patient's floor/unit and/or counseling patient: Coding Level of Care Code 99313 SUB INP/OBS CARE 235MIN Diagnoses Asthma exacerbation J45.901 Coronavirus infection B34.2 Hypomagnesemia E83.42 Labile hypertension R09.89 Thrombocytopenia D69.6 Pleural effusion J90 Hypertrophic obstructive cardiomyopathy (HOCM) I42.1 Depression with anxiety F41.8 Dyslipidemia E78.5 Hypothyroidism E03.9 Chronic kidney disease, stage 3 N18.3 Time Spent (min) 35
--- NOTE | 2024-02-17 10:15 | Pharmacy Report ---
Pharmacy Glycemic Short Note 2 - Date of Service February 17, 2024 - Glycemic Short BSG Results (Last 24 hours): 02/16/24 02/16/24 02/17/24 14:26 20:32 04:01 Glucose 306 H* 282 H POC Glucose 283 H 02/17/24 02/17/24 07:20 07:22 Glucose POC Glucose 316 H* 287 H OUTPATIENT ANTIDIABETIC REGIMEN: * metformin 500mg PO BID * semaglutide 0.25mg SQ weekly * Novolog 70/30 mix 7 units SQ BID HbA1C: 7.1% (12/23/23) ASSESSMENT: * Pt is a 78 year old female with a history of DM2 admitted with an asthma exacerbation. Pharmacy consulted to assist with inpatient glycemic management. * BSGs [phone]/dL since admission. Receiving IV methylprednisolone 40mg BID. Diet ordered. * Agree with basal/bolus insulin for now given hyperglycemia and ongoing steroids. Continue Lantus 15 units BID for now and will titrate based upon BSGs. Novolog tightened to severe stress scale given prandial hyperglycemia. PLAN FOR INPATIENT GLYCEMIC CONTROL: * Hold outpatient oral diabetes medications * Basal insulin * Lantus 15 units SQ BID * Bolus insulin * NovoLog per scale ACHS or Q6hrs while NPO * Goal Range: Low 110 mg/dL - High 140 mg/dL * Correction Factor: 15 mg/dL/unit * Nutritional / Prandial insulin per carb ratio of 1 unit per 6 grams CHO consumed
--- NOTE | 2024-02-17 16:18 | Electrocardiogram Report ---
Test Reason : Blood Pressure : / mmHG Vent. Rate : 081 BPM Atrial Rate : 081 BPM P-R Int : 154 ms QRS Dur : 086 ms QT Int : 396 ms P-R-T Axes : 029 -12 099 degrees QTc Int : 460 ms Sinus rhythm with Premature atrial complexes Nonspecific ST and T wave abnormality Abnormal ECG When compared with ECG of 05-AUG-2015 19:59, Significant changes have occurred Confirmed by Bob Ellis ([id number]) on 02/17/2024 4:18:42 PM Referred By: Confirmed By:Bob Ellis
[2024-02-18] MEDS: INSULIN ASPART PER UNIT CHARGE SC SCH (00:46)
[2024-02-18 04:38] LABS: Basophils # (auto) 0.01 K/uL (0.00-0.20); Basophils % (auto) 0.1 %; Hematocrit (blood only) 36.3 % (37.0-47.0); Hemoglobin 11.3 g/dl (12.0-16.0); Immature Granulocytes # (auto) 0.04 K/uL (0.01-0.20); Immature Granulocytes % (auto) 0.6 %; Lymphocytes # (auto) 0.66 K/uL (1.20-3.40); Lymphocytes % (auto) 9.2 %; Mean Corpuscular Hemoglobin 26.3 pg (25.0-34.0); Mean Corpuscular Hgb Conc 31.1 g/dL (32.0-36.0); Mean Corpuscular Volume 84.4 fL (80.0-100.0); Monocytes # (auto) 0.15 K/uL (0.11-0.59); Monocytes % (auto) 2.1 %; Neutrophils # (auto) 6.35 K/uL (1.40-6.50); Platelet Count 92 K/uL (130-400); RDW Coefficient of Variation 14.8 % (11.5-14.5); White Blood Count 7.21 K/ul (4.8-10.8)
[2024-02-18 04:52] LABS: BUN Creatinine Ratio 28.7 (10-20); Calcium 9.5 mg/dl (8.6-10.3); Creatinine Clr Calc Pharmacy 35.2 ml/min; Est GFR (African American) 46.6 ml/min; Est GFR (Non-African American) 40.2 ml/min; Potassium 4.4 mmol/L (3.5-5.1)
[2024-02-18] MEDS: LANTUS PER UNIT CHARGE SQ SCH (08:45)
--- NOTE | 2024-02-18 11:34 | Hospitalist Progress Note ---
Date of Service February 18, 2024 Assessment & Plan (1) Bronchitis: Plan: Acute bronchitis is the most likely reason for her worsening cough, possible etiologies Liz virus Patient denies any history of asthma However was told by pulmonology sometime in the past that she is prone to bronchitis given some lung damage earlier in her life Symptomatic management, and Robitussin Continue DuoNebs scheduled and as needed. (2) Asthma exacerbation: Plan: Patient presents to the hospital on account of worsening shortness of breath and wheeze Tested positive for coronavirus 22e Started on Solu-Medrol 40 mg IV BID DuoNeb 3 mL QIDR No extra wheeze on exam Patient feels much better (3) Coronavirus infection: Plan: Acute onset of MONTOYA and conversational dyspnea the morning of 02/15 Coronavirus 229e (+) on arrival No leukocytosis; afebrile No need for isolation Continue supplemental oxygen as needed to maintain SpO2 >94% Currently on 2 L of oxygen through nasal cannula, usually not on oxygen at home Wean oxygen as tolerated Continuous pulse oximetry Guaifenesin 600 mg p.o. BID for cough Duoneb 3mL q6r for wheezing (4) Hypomagnesemia: Plan: Repleted (5) Labile hypertension: Plan: Blood pressure still around 171/61 Patient can continue clonidine 0.2 mg p.o. BID as needed for HTN Labetalol 5mg IV q6h as needed for HTN emergency Continue diltiazem (6) Thrombocytopenia: Plan: Chronic; platelets 88 on arrival (7) Pleural effusion: Plan: CXR revealed mild interstitial pulmonary edema and small right pleural effusion BNP elevated at 708 (no prior for comparison) Last echo > 70% LVEF in 07/2023 Will trial Lasix 40 mg p.o. x 1 Caution overdiuresis given HOCM (8) Hypertrophic obstructive cardiomyopathy (HOCM): Plan: Chronic; noted Caution diuretics (as above) (9) Depression with anxiety: (10) Dyslipidemia: (11) Hypothyroidism: (12) Chronic kidney disease, stage 3: Plan Disposition: Continue hospitalization, hopefully discharge in next 24 to 48 hours DNR/DNI T2DM, AHA diet VTE PPx: Heparin 5000u SQ q12h Admission and Anticipated Discharge Date Admission Date: February 16, 2024 Subjective Patient seen and examined today, states shortness of breath and wheeze much better, however her cough got worse Review of Systems Review of Systems: All systems reviewed are negative, apart from the ones contained in the history. Physical Exam Physical Exam: The patient is awake, alert and oriented 3, well developed and well nourished, normocephalic and atraumatic, lying in bed and in no acute distress. HEENT--PERRL, EOMI, mucous membranes and oropharynx mildly dry Neck--supple. No JVD. No bruits. Thyroid normal, trachea midline, no adenopathy. Heart--normal S1 and S2. No murmurs, rubs or gallops. Lungs--clear bilaterally, no respiratory distress, no accessory muscle use. Abdomen--normal bowel sounds and soft. Extremities--no cyanosis or clubbing. No edema. Dermatologic--normal skin turgor, normal color, no abnormal lymph nodes, no rash. Neurologic--cranial nerves II through XII grossly intact. Rheumatologic--normal range of motion. Psychiatric--normal affect. Results & Data Results & Data Vital Signs (Past 12 Hours) Vital Signs Temp Pulse Pulse Resp BP Pulse Ox O2 Del Method 02/18/24 07:53 Nasal Cannula 02/18/24 07:52 98.1 F 02/18/24 07:28 73 23 91 Nasal Cannula 02/18/24 07:28 155/61 H 02/18/24 07:20 65 02/18/24 07:16 90 16 95 Nasal Cannula 02/18/24 07:00 65 93 02/18/24 06:00 64 30 H 95 02/18/24 05:00 66 29 H 97 02/18/24 04:01 59 L 16 84 L 02/18/24 04:01 145/59 H 02/18/24 04:00 53 L 21 86 L 02/18/24 04:00 98.1 F 17 96 Nasal Cannula 02/18/24 03:00 52 L 14 91 02/18/24 02:00 55 L 15 89 L 02/18/24 01:00 60 24 89 L 02/18/24 00:40 66 16 94 02/18/24 00:40 135/69 02/18/24 00:00 59 L 02/18/24 00:00 62 15 91 02/18/24 00:00 98.2 F O2 Flow Rate 02/18/24 07:53 2 02/18/24 07:52 02/18/24 07:28 2 02/18/24 07:28 02/18/24 07:20 02/18/24 07:16 2 02/18/24 07:00 02/18/24 06:00 02/18/24 05:00 02/18/24 04:01 02/18/24 04:01 02/18/24 04:00 02/18/24 04:00 2 02/18/24 03:00 02/18/24 02:00 02/18/24 01:00 02/18/24 00:40 02/18/24 00:40 02/18/24 00:00 02/18/24 00:00 02/18/24 00:00 PG Care Time/CCT Total # of Minutes Spent Total Time Spent with Patient: Total time spent is greater than 50% in coordination of care (as documented) at patient's floor/unit and/or counseling patient: Coding Level of Care Code 19908 SUB INP/OBS CARE 2/35MIN Diagnoses Bronchitis J40 Asthma exacerbation J45.901 Coronavirus infection B34.2 Hypomagnesemia E83.42 Labile hypertension R09.89 Thrombocytopenia D69.6 Pleural effusion J90 Hypertrophic obstructive cardiomyopathy (HOCM) I42.1 Depression with anxiety F41.8 Dyslipidemia E78.5 Hypothyroidism E03.9 Chronic kidney disease, stage 3 N18.3 Time Spent (min) 35
[2024-02-18] MEDS: INSULIN HUMAN REGULAR PER UNIT 7 UNITS in SYRINGE 6.93 ML IV ONE ×2 (12:42→21:52)
--- NOTE | 2024-02-18 14:21 | Pharmacy Report ---
Pharmacy Glycemic Short Note 2 - Date of Service February 18, 2024 - Glycemic Short BSG Results (Last 24 hours): 02/17/24 02/17/24 02/18/24 15:53 20:45 00:41 Glucose POC Glucose 270 H 245 H 284 H 02/18/24 02/18/24 02/18/24 04:16 04:26 07:26 Glucose 203 H POC Glucose 204 H 197 H 02/18/24 11:36 Glucose POC Glucose 309 H* OUTPATIENT ANTIDIABETIC REGIMEN: * metformin 500mg PO BID * semaglutide 0.25mg SQ weekly * Novolog 70/30 mix 7 units SQ BID HbA1C: 7.1% (12/23/23) ASSESSMENT: 02/18/24: * Blood sugars persistently elevated yesterday, ranging 245-308 mg/dL * Received 93 units of insulin (30 units of basal and 63 units of prandial/correctional bolus) * Fasting blood sugar of 197 mg/dL this morning * Continues on methylprednisolone 40 mg IV BID * Will give one-time IV insulin bolus with lunch today for blood sugar > 300 mg/dL * Further tighten Novolog and increase basal today 02/17/24: * Pt is a 78 year old female with a history of DM2 admitted with an asthma exacerbation. Pharmacy consulted to assist with inpatient glycemic management. * BSGs 250-514-001al/dL since admission. Receiving IV methylprednisolone 40mg BID. Diet ordered. * Agree with basal/bolus insulin for now given hyperglycemia and ongoing steroids. Continue Lantus 15 units BID for now and will titrate based upon BSGs. Novolog tightened to severe stress scale given prandial hyperglycemia. PLAN FOR INPATIENT GLYCEMIC CONTROL: * Hold outpatient oral diabetes medications * Basal insulin - increase * Lantus 20 units SQ BID * Bolus insulin - tighten carb ratio * NovoLog per scale ACHS or Q6hrs while NPO * Goal Range: Low 110 mg/dL - High 140 mg/dL * Correction Factor: 15 mg/dL/unit * Nutritional / Prandial insulin per carb ratio of 1 unit per 4 grams CHO consumed
[2024-02-19] MEDS: INSULIN ASPART PER UNIT CHARGE SC SCH (00:43)
[2024-02-19 04:41] LABS: BUN Creatinine Ratio 41.8 (10-20); Calcium 9.3 mg/dl (8.6-10.3); Est GFR (African American) 49.8 ml/min; Potassium 4.5 mmol/L (3.5-5.1)
[2024-02-19 04:47] LABS: Basophils # (auto) 0.01 K/uL (0.00-0.20); Basophils % (auto) 0.1 %; Immature Granulocytes # (auto) 0.06 K/uL (0.01-0.20); Immature Granulocytes % (auto) 0.7 %; Lymphocytes # (auto) 0.58 K/uL (1.20-3.40); Lymphocytes % (auto) 6.4 %; Mean Corpuscular Hemoglobin 26.6 pg (25.0-34.0); Mean Corpuscular Hgb Conc 31.4 g/dL (32.0-36.0); Mean Corpuscular Volume 84.7 fL (80.0-100.0); Mean Platelet Volume 11.3 fL (9.4-12.4); Monocytes # (auto) 0.17 K/uL (0.11-0.59); Monocytes % (auto) 1.9 %; Neutrophils # (auto) 8.18 K/uL (1.40-6.50); Neutrophils % (auto) 90.9 %; Platelet Count 109 K/uL (130-400); Polychromasia 1+; RDW Coefficient of Variation 15.1 % (11.5-14.5); RDW Standard Deviation 45.4 fL (36.4-46.3); Red Blood Count 4.13 M/uL (4.20-5.40)
[2024-02-19] MEDS: guaiFENesin/DEXTROM SYRUP 200MG/20MG 10ML UDC PO PRN (08:38)
--- NOTE | 2024-02-19 10:07 | Hospitalist Progress Note ---
Date of Service February 19, 2024 Assessment & Plan (1) Bronchitis: Plan: Acute bronchitis is the most likely reason for her worsening cough, possible etiologies Liz virus Patient denies any history of asthma However was told by pulmonology sometime in the past that she is prone to bronchitis given some lung damage earlier in her life Symptomatic management, and Robitussin Continue DuoNebs scheduled and as needed. Cough is much improved, although she still coughs whenever she takes deep breaths (2) Asthma exacerbation: Plan: Patient presents to the hospital on account of worsening shortness of breath and wheeze Tested positive for coronavirus 22e Started on Solu-Medrol 40 mg IV BID, transition to p.o. prednisone 40 mg twice daily, wean over time DuoNeb 3 mL QIDR No extra wheeze on exam Patient feels much better (3) Coronavirus infection: Plan: Acute onset of MONTOYA and conversational dyspnea the morning of 02/15 Coronavirus 229e (+) on arrival No leukocytosis; afebrile No need for isolation Continue supplemental oxygen as needed to maintain SpO2 >94% Currently on 2 L of oxygen through nasal cannula, usually not on oxygen at home Wean oxygen as tolerated Continuous pulse oximetry Guaifenesin 600 mg p.o. BID for cough Duoneb 3mL q6r for wheezing (4) Hypomagnesemia: Plan: Repleted (5) Labile hypertension: Plan: Blood pressure is labile, Patient can continue clonidine 0.2 mg p.o. BID as needed for HTN Labetalol 5mg IV q6h as needed for HTN emergency Continue diltiazem (6) Thrombocytopenia: Plan: Chronic; (7) Pleural effusion: Plan: CXR on admission revealed mild interstitial pulmonary edema and small right pleural effusion BNP elevated at 708 (no prior for comparison) Last echo > 70% LVEF in 07/2023 Will trial Lasix 40 mg p.o. x 1 Caution overdiuresis given HOCM (8) Hypertrophic obstructive cardiomyopathy (HOCM): Plan: Chronic; noted Caution diuretics (as above) (9) Depression with anxiety: (10) Dyslipidemia: (11) Hypothyroidism: (12) Chronic kidney disease, stage 3: Plan Disposition: Continue hospitalization, hopefully discharge in next 24 to 48 hours DNR/DNI T2DM, AHA diet VTE PPx: Heparin 5000u SQ q12h Admission and Anticipated Discharge Date Admission Date: February 16, 2024 Subjective Patient seen and examined today, states shortness of breath and wheeze much better, she also said that her cough has gotten better Review of Systems Review of Systems: All systems reviewed are negative, apart from the ones contained in the history. Physical Exam Physical Exam: The patient is awake, alert and oriented 3, well developed and well nourished, normocephalic and atraumatic, lying in bed and in no acute distress. HEENT--PERRL, EOMI, mucous membranes and oropharynx mildly dry Neck--supple. No JVD. No bruits. Thyroid normal, trachea midline, no adenopathy. Heart--normal S1 and S2. No murmurs, rubs or gallops. Lungs--clear bilaterally, no respiratory distress, no accessory muscle use. Abdomen--normal bowel sounds and soft. Extremities--no cyanosis or clubbing. No edema. Dermatologic--normal skin turgor, normal color, no abnormal lymph nodes, no rash. Neurologic--cranial nerves II through XII grossly intact. Rheumatologic--normal range of motion. Psychiatric--normal affect. Results & Data Results & Data Vital Signs (Past 12 Hours) Vital Signs Temp Pulse Pulse Resp BP BP Pulse Ox 02/19/24 10:00 60 19 02/19/24 08:08 71 167/75 H 02/19/24 08:00 167/75 H 02/19/24 08:00 67 14 94 02/19/24 08:00 98.6 F 02/19/24 07:59 69 18 94 02/19/24 07:59 172/86 H 02/19/24 07:53 82 246/121 H 02/19/24 07:48 82 18 94 02/19/24 07:48 246/121 H 02/19/24 07:46 80 17 96 02/19/24 07:46 235/96 H 02/19/24 07:43 84 18 95 02/19/24 06:00 65 20 95 02/19/24 05:00 63 25 H 94 02/19/24 04:00 66 29 H 95 02/19/24 04:00 98.2 F 64 18 141/79 H 94 02/19/24 03:00 82 22 95 02/19/24 02:00 60 23 95 02/19/24 01:00 66 19 96 02/19/24 00:46 71 24 96 02/19/24 00:46 128/88 02/19/24 00:00 65 28 H 128/88 93 02/19/24 00:00 98.4 F 02/18/24 23:46 67 02/18/24 23:00 69 21 94 O2 Del Method O2 Flow Rate 02/19/24 10:00 02/19/24 08:08 02/19/24 08:00 02/19/24 08:00 02/19/24 08:00 02/19/24 07:59 Nasal Cannula 2 02/19/24 07:59 02/19/24 07:53 02/19/24 07:48 02/19/24 07:48 02/19/24 07:46 02/19/24 07:46 02/19/24 07:43 Nasal Cannula 2 02/19/24 06:00 02/19/24 05:00 02/19/24 04:00 02/19/24 04:00 Nasal Cannula 2 02/19/24 03:00 02/19/24 02:00 02/19/24 01:00 02/19/24 00:46 02/19/24 00:46 02/19/24 00:00 02/19/24 00:00 02/18/24 23:46 02/18/24 23:00 PG Care Time/CCT Total # of Minutes Spent Total Time Spent with Patient: Total time spent is greater than 50% in coordination of care (as documented) at patient's floor/unit and/or counseling patient: Coding Level of Care Code 87259 SUB INP/OBS CARE 2/35MIN Diagnoses Bronchitis J40 Asthma exacerbation J45.901 Coronavirus infection B34.2 Hypomagnesemia E83.42 Labile hypertension R09.89 Thrombocytopenia D69.6 Pleural effusion J90 Hypertrophic obstructive cardiomyopathy (HOCM) I42.1 Depression with anxiety F41.8 Dyslipidemia E78.5 Hypothyroidism E03.9 Chronic kidney disease, stage 3 N18.3 Time Spent (min) 35
[2024-02-19] MEDS: LANTUS PER UNIT CHARGE SQ ONE (12:17)
[2024-02-19] MEDS: CHECK CLONIDINE PATCH PLACEMENT SCH (16:20)
[2024-02-19] MEDS: predniSONE 20 MG TAB PO SCH (20:50)
[2024-02-20] MEDS: INSULIN ASPART PER UNIT CHARGE SC SCH (00:20)
[2024-02-20 08:02] LABS: Hematocrit (blood only) 34.4 % (37.0-47.0); Hemoglobin 10.6 g/dl (12.0-16.0); Mean Corpuscular Hemoglobin 26.3 pg (25.0-34.0); Mean Corpuscular Hgb Conc 30.8 g/dL (32.0-36.0); Mean Corpuscular Volume 85.4 fL (80.0-100.0); Mean Platelet Volume 10.9 fL (9.4-12.4); Platelet Count 92 K/uL (130-400); RDW Coefficient of Variation 15.2 % (11.5-14.5); RDW Standard Deviation 46.5 fL (36.4-46.3); Red Blood Count 4.03 M/uL (4.20-5.40); White Blood Count 5.36 K/ul (4.8-10.8)
[2024-02-20] MEDS: LANTUS PER UNIT CHARGE SQ SCH (08:21)
[2024-02-20 08:44] LABS: BUN Creatinine Ratio 42.6 (10-20); Calcium 8.7 mg/dl (8.6-10.3); Creatinine Clr Calc Pharmacy 37.2 ml/min; Est GFR (African American) 49.8 ml/min; Potassium 4.8 mmol/L (3.5-5.1)
[2024-02-20] MEDS: FUROSEMIDE 40 MG/4 ML VIAL IV SCH (11:08)
[2024-02-20] MEDS: METOPROLOL TARTRATE 50 MG TAB PO SCH (11:08)
[2024-02-20] MEDS ORDERED: ALBUT/IPRATROP 3MG/0.5MG NEB 3 ML VIAL NEB PRN (11:09)
--- NOTE | 2024-02-20 13:01 | Hospitalist Progress Note ---
Date of Service February 20, 2024 Assessment & Plan (1) Bronchitis: Plan: Possible viral bronchitis producing wheezing but more likely is the bronchospasm is caused from the CHF. She is now on parenteral Lasix diuresis. Steroid therapy has been discontinued. Continue nebulizers as needed. (2) Asthma exacerbation: Plan: Wheezing present on admission probably related to underlying CHF. She is not currently wheezing and steroid therapy has been discontinued. She is now on Lasix parenteral diuresis. Supportive care. There may be a component of viral bronchitis. (3) Coronavirus infection: Plan: Present on admission. Supportive care. This could possibly be producing a viral bronchitis. (4) Hypomagnesemia: Plan: Corrected (5) Labile hypertension: Plan: Diltiazem has been switched to metoprolol. Improved. (6) Thrombocytopenia: Plan: Chronic and stable. Serial labs (7) Pleural effusion: Plan: CXR on admission revealed mild interstitial pulmonary edema and small right pleural effusion. Due to CHF. Should resolve eventually with diuresis. (8) Hypertrophic obstructive cardiomyopathy (HOCM): Plan: She does not have HOCM. She does have some asymmetrical septal wall thickening with a hyperdynamic left ventricle producing some outflow tract obstruction which should resolve with blood pressure control and heart rate control with metoprolol. (9) Chronic kidney disease, stage 3: Plan: Monitor intake and output. Serial lab Plan Hopeful discharge to home soon. Possibly tomorrow, February 20 Admission and Anticipated Discharge Date Admission Date: February 16, 2024 Subjective Alert and oriented. No distress. Her shortness of breath appears to be due to acute diastolic CHF related to her uncontrolled hypertension. She is now on parenteral Lasix for diuresis. Hydrochlorothiazide has been discontinued. Diltiazem has been switched to metoprolol for better blood pressure control and heart rate control. She does not have hypertensive obstructive cardiomyopathy. She is not overtly wheezing at this time and there does not appear to be a need for prednisone which has been discontinued. Creatinine stable at 1.2. Potassium 4.8. Review of Systems 2 Review of Systems: Constitutional-no fever or chills ENT-no blurred vision, no double vision, no epistaxis, no sore throat Respiratory-no cough. Shortness of breath with exertion and she has noticed some wheezing Cardiac-no palpitations, no chest pain, no syncope GI-no nausea, vomiting, diarrhea, melena, hematochezia -no urinary retention, no urinary incontinence, no dysuria, no hematuria Musculoskeletal-no joint pain, no muscle tenderness Skin-no bruising, no rashes, no pruritus Neuro-no isolated weakness, no paresthesia Psych-no depression, no anxiety Physical Exam 2 Physical Exam: General-alert and oriented x3, no fevers, no chills HEENT-head atraumatic and normocephalic, pupils equal and reactive to light, extraocular muscles intact Neck-no lymphadenopathy or thyromegaly, trachea midline Chest-bibasilar inspiratory rales. No dullness. No rhonchi. No wheezing Cardiac-regular rate and rhythm, normal S1 and S2 Abdomen-normal bowel sounds, nontender, no hepatosplenomegaly Extremities-no cyanosis, clubbing, or edema Neuro-cranial nerves II through XII intact, motor and sensory function within normal limits, strength symmetrical, no focal deficits Psych-normal affect, normal mood Results & Data Results & Data Vital Signs (Past 12 Hours) Vital Signs Temp Pulse Pulse Resp BP BP Pulse Ox 02/20/24 11:08 62 02/20/24 10:59 36.4 C L 59 L 18 174/81 H 96 02/20/24 08:00 02/20/24 08:00 54 L 02/20/24 07:55 71 20 97 02/20/24 07:31 36.4 C L 58 L 20 199/73 H 96 02/20/24 06:27 149/68 H 02/20/24 04:13 61 206/78 H 02/20/24 04:00 36.6 C 70 18 210/84 H 93 02/20/24 03:58 78 208/72 H O2 Del Method 02/20/24 11:08 02/20/24 10:59 Room Air 02/20/24 08:00 Room Air 02/20/24 08:00 02/20/24 07:55 Room Air 02/20/24 07:31 Room Air 02/20/24 06:27 02/20/24 04:13 02/20/24 04:00 Room Air 02/20/24 03:58 Laboratory Results 02/20/24 07:24 02/20/24 07:24 PG Care Time/CCT Total # of Minutes Spent Total Time Spent with Patient: Total time spent is greater than 50% in coordination of care (as documented) at patient's floor/unit and/or counseling patient: Coding Level of Care Code 35234 SUB INP/OBS CARE 350MIN Diagnoses Bronchitis J40 Asthma exacerbation J45.901 Coronavirus infection B34.2 Hypomagnesemia E83.42 Labile hypertension R09.89 Thrombocytopenia D69.6 Pleural effusion J90 Hypertrophic obstructive cardiomyopathy (HOCM) I42.1 Chronic kidney disease, stage 3 N18.3
[2024-02-21] MEDS: ACETAMINOPHEN 325 MG TAB PO PRN (00:10)
[2024-02-21] MEDS: hydrALAZINE HCL 20 MG/ML VIAL IV STA (08:01)
[2024-02-21 08:05] LABS: BUN Creatinine Ratio 38.2 (10-20); Calcium 8.9 mg/dl (8.6-10.3); Creatinine Clr Calc Pharmacy 34.3 ml/min; Est GFR (African American) 45.7 ml/min; Est GFR (Non-African American) 39.5 ml/min; Potassium 3.5 mmol/L (3.5-5.1)
--- NOTE | 2024-02-21 10:33 | XRay Report ---
XR chest 1V portable CLINICAL HISTORY: Congestive heart failure. COMPARISON STUDY: Chest radiograph February 16, 2024. FINDINGS: Lung volumes are normal. Lungs are clear. There is no pneumothorax or pleural effusion. Mil d cardiomegaly is unchanged. Mediastinal contours are normal. There is no evidence for pulmonary arnold a. Pulmonary edema has resolved since chest radiograph of February 16, 2024. IMPRESSION: No acute cardiopulmonary findings. Resolution of pulmonary edema. ACT 112: Negative or not required by law. Electronically signed by: Tej Forte M.D. 02/21/2024 10:32 AM
[2024-02-21] MEDS: hydrALAZINE 10 MG TAB PO SCH (11:53)
--- NOTE | 2024-02-21 15:16 | Hospitalist Progress Note ---
Date of Service February 21, 2024 Assessment & Plan (1) Bronchitis: Plan: Possible viral bronchitis producing wheezing but more likely is the bronchospasm is caused from the CHF. Resolved. She is now on parenteral Lasix diuresis. Steroid therapy has been discontinued. Continue nebulizers as needed. (2) Asthma exacerbation: Plan: Wheezing present on admission probably related to underlying CHF. She is not currently wheezing and steroid therapy has been discontinued. She is now on Lasix parenteral diuresis. Supportive care. There may be a component of viral bronchitis. (3) Coronavirus infection: Plan: Present on admission. Supportive care. This could possibly be producing a viral bronchitis. (4) Hypomagnesemia: Plan: Corrected (5) Labile hypertension: Plan: Diltiazem has been switched to metoprolol. She required parenteral hydralazine this morning, February 20, and is now on oral hydralazine in addition to the metoprolol. Will follow. (6) Thrombocytopenia: Plan: Chronic and stable. Serial labs (7) Pleural effusion: Plan: CXR on admission revealed mild interstitial pulmonary edema and small right pleural effusion. Due to CHF. Should resolve eventually with diuresis. Repeat chest x-ray today, February 20, looks much better (8) Hypertrophic obstructive cardiomyopathy (HOCM): Plan: She does not have HOCM. She does have some asymmetrical septal wall thickening with a hyperdynamic left ventricle producing some outflow tract obstruction which should resolve with blood pressure control and heart rate control with metoprolol. (9) Chronic kidney disease, stage 3: Plan: Monitor intake and output. Serial lab Plan Anticipate discharge to home tomorrow, February 21 Admission and Anticipated Discharge Date Admission Date: February 16, 2024 Subjective Alert and oriented. No distress. I asked her if she wanted me to call anybody to let them know she would be discharged tomorrow, February 21, and she said no. She received a dose of intravenous hydralazine this morning for blood pressure control and is now on oral hydralazine. Metoprolol dosage down titrated due to mild bradycardia. She is on room air, and chest x-ray done today February 20 looks much much better. Review of Systems 2 Review of Systems: Constitutional-no fever or chills ENT-no blurred vision, no double vision, no epistaxis, no sore throat Respiratory-no cough. Shortness of breath with exertion and she has noticed some wheezing Cardiac-no palpitations, no chest pain, no syncope GI-no nausea, vomiting, diarrhea, melena, hematochezia -no urinary retention, no urinary incontinence, no dysuria, no hematuria Musculoskeletal-no joint pain, no muscle tenderness Skin-no bruising, no rashes, no pruritus Neuro-no isolated weakness, no paresthesia Psych-no depression, no anxiety Physical Exam 2 Physical Exam: General-alert and oriented x3, no fevers, no chills HEENT-head atraumatic and normocephalic, pupils equal and reactive to light, extraocular muscles intact Neck-no lymphadenopathy or thyromegaly, trachea midline Chest-bibasilar inspiratory rales. No dullness. No rhonchi. No wheezing Cardiac-regular rate and rhythm, normal S1 and S2 Abdomen-normal bowel sounds, nontender, no hepatosplenomegaly Extremities-no cyanosis, clubbing, or edema Neuro-cranial nerves II through XII intact, motor and sensory function within normal limits, strength symmetrical, no focal deficits Psych-normal affect, normal mood Results & Data Results & Data Vital Signs (Past 12 Hours) Vital Signs Temp Pulse Pulse Resp BP Pulse Ox O2 Del Method 02/21/24 10:07 36.6 C 57 L 20 164/78 H 97 Room Air 02/21/24 08:00 Room Air 02/21/24 08:00 54 L 02/21/24 08:00 71 187/75 H 02/21/24 07:41 36.6 C 61 18 214/116 H 96 Room Air Laboratory Results 02/20/24 07:24 02/21/24 06:30 PG Care Time/CCT Total # of Minutes Spent Total Time Spent with Patient: Total time spent is greater than 50% in coordination of care (as documented) at patient's floor/unit and/or counseling patient: Coding Level of Care Code 14863 SUB INP/OBS CARE 3/50MIN Diagnoses Bronchitis J40 Asthma exacerbation J45.901 Coronavirus infection B34.2 Hypomagnesemia E83.42 Labile hypertension R09.89 Thrombocytopenia D69.6 Pleural effusion J90 Hypertrophic obstructive cardiomyopathy (HOCM) I42.1 Chronic kidney disease, stage 3 N18.3
[2024-02-21] MEDS: ONDANSETRON INJ 2 MG/ML 2 ML VIAL IV PRN (16:50)
[2024-02-21] MEDS: DEXTROSE 50% 50 ML SYRINGE IV STA (17:33)
[2024-02-21] MEDS: METOPROLOL TARTRATE 25 MG TAB PO SCH (21:34)
[2024-02-22] MEDS: hydrALAZINE HCL 20 MG/ML VIAL IV PRN (02:36)
[2024-02-22 08:36] LABS: BUN Creatinine Ratio 40.8 (10-20); Calcium 9.3 mg/dl (8.6-10.3); Creatinine Clr Calc Pharmacy 37.1 ml/min; Est GFR (African American) 50.8 ml/min; Est GFR (Non-African American) 43.9 ml/min; Potassium 4.2 mmol/L (3.5-5.1)
[2024-02-22] MEDS: hydrALAZINE HCL 25 MG TAB PO SCH (10:53)
--- NOTE | 2024-02-22 11:03 | Discharge Summary ---
Date of Service February 22, 2024 Admission HPI Per Admitting Provider Leeann is a 78-year-old female with PMH of HOCM, labile HTN, mitral regurgitation, dyslipidemia, T2DM, asthma, hypothyroidism, depression with anxiety, and CKD stage III. She presented for SOB and chest tightness that de veloped around 0330 on 02/15. Patient reports that she woke up and went to the kitchen, but had MONTOYA. It has been constant since then, and she has become increasingly conversationally dyspneic. She denies having SOB at rest, and reports that is not worse when lying flat. She has been having a congestive cough /fits of coughing, that often lead to substernal chest tightness. She tried applying Vicks VapoRub on her chest, as well as a warm towel, but this did not help. She denies chest pain, and believes that the chest tightness does not radiate to her arms or to her back. Patient took all of her regular morning medications, including her insulin. Only recent change in medications was increasing her thyroid medication and starting on sertraline. It should be noted that patient takes clonidine 0.2 mg tablets BID or TID as needed for high blood pressure; she reports that she does have a BP cuff at home, but usually can tell if her blood pressure is high due to headache that comes on. She has been taking clonidine 0.2 mg 2-3x per day regularly. Patient does not wear supplemental oxygen at baseline. She notes that this feels similar to past experiences of bronchitis; she reports that she tends to have bronchitis in the wintertime. She denies smoking, tobacco use, and alcohol use. No sick contacts. She did not have any trouble breathing yesterday. She denies PMH of NE, CVA, DVT/PE, and cancer. Patient is hypertensive at 193/91 and tachypneic at 25 RPM at time of admission. ED course: Azithromycin 500 mg IV Rocephin 2000 mg IV Nitro-Bid 2% 1 inch ROS: Patient endorses chest tightness, pleuritic CP, productive cough, sore throat, lightheaded with walking, MONTOYA, nausea, and diarrhea x 2 days (patient attributes to something she ate a couple days ago). Patient denies fever, chills, nightsweats, dizziness/lightheaded at rest, THOMPSON, hemoptysis, left arm/shoulder/jaw pain, chest pain, chest palpitations, abdominal pain, vomiting, burning with urination, dysuria, or numbness/tingling/pain in legs. Principal Diagnosis Acute diastolic CHF, uncontrolled hypertension, hypomagnesemia, acute exacerbation intrinsic asthma Discharge Exam General-alert and oriented x3, no fevers, no chills HEENT-head atraumatic and normocephalic, pupils equal and reactive to light, ext raocular muscles intact Neck-no lymphadenopathy or thyromegaly, trachea midline Chest-bibasilar inspiratory rales. No dullness. No rhonchi. No wheezing Cardiac-regular rate and rhythm, normal S1 and S2 Abdomen-normal bowel sounds, nontender, no hepatosplenomegaly Extremities-no cyanosis, clubbing, or edema Neuro-cranial nerves II through XII intact, motor and sensory function within normal limits, strength symmetrical, no focal deficits Psych-normal affect, normal mood Discharge Data Allergies Allergy/AdvReac Type Severity Reaction Status Date / Time pollen extracts Allergy Unknown Unknown Verified 02/16/24 16:28 aspirin AdvReac Intermediate N/V AND Verified 02/16/24 16:28 AFFECTS LIVER Consultations 02/16/24 16:16 ED Decision to Admit Stat Hospital Course (1) Bronchitis: Possible viral bronchitis producing wheezing but more likely is the bronchospasm is caused from the CHF. Resolved. She was treated while hospitalized with parenteral Lasix diuresis. Steroid therapy has been discontinued. Continue nebulizers as needed. (2) Asthma exacerbation: Wheezing present on admission probably related to underlying CHF. She is not currently wheezing and steroid therapy has been discontinued. She was treated while hospitalized with Lasix parenteral diuresis. Supportive care. There may have been a component of viral bronchitis. (3) Coronavirus infection: Present on admission. Supportive care. This could have possibly caused a viral bronchitis. (4) Hypomagnesemia: Corrected (5) Labile hypertension: Diltiazem has been switched to metoprolol. She required parenteral hydralazine on the morning of February 20, and is now on oral hydralazine in addition to the metoprolol. Hydralazine dosage uptitrated today, February 21. Will follow. (6) Thrombocytopenia: Chronic and stable. Serial labs (7) Pleural effusion: CXR on admission revealed mild interstitial pulmonary edema and small right pleural effusion. Due to CHF. This has resolved. (8) Hypertrophic obstructive cardiomyopathy (HOCM): She does not have HOCM. She does have some asymmetrical septal wall thickening with a hyperdynamic left ventricle producing some outflow tract obstruction which should resolve with blood pressure control and heart rate control with metoprolol. (9) Chronic kidney disease, stage 3: Monitor intake and output. Serial lab Plan Home todayFebruary 21 Total Time Total Time Spent Total Time Spent (In Minutes): 45 minutes Discharge Plan Discharge Items Patient Disposition: Home - Self-Care Reason For Visit: SOB/DYSPNEA Discharge Diagnosis: Acute diastolic CHF, uncontrolled hypertension, acute exacerbation asthma, hypomagnesemia Condition on Discharge: Good Activity: Resume your previous activity Non-emergency contact: Primary Care Provider Call non-emergency contact if: you have any medication questions and your symptoms worsen Follow-up/Referrals: Katelyn Stark MD [Primary Care Provider] - Diet: Carb Consistent or DM2 and Heart Healthy Addtl Attending Provider Instructions: Metoprolol and hydralazine replaced diltiazem. New prescriptions have been sent to the [facility]. Pending Studies at Discharge: No Stand-Alone Forms: [facility], Smoking Cessation Medications and DC Order Prescriptions: New hydralazine 25 mg Tablet 25 mg PO TID Qty: 100 0RF metoprolol tartrate 25 mg Tablet 25 mg PO BID Qty: 60 0RF Continued (DME) pen needle, diabetic [BD Ultra-Fine Lin Pen Needle] 32 gauge x 5/32" needle See Rx Instructions .ROUTE .MEDSUPPLY Qty: 200 3RF Rx Instructions: use 2 needles daily valsartan 80 mg tablet 80 mg PO BID Qty: 180 3RF (DME) lancets 30 gauge misc See Rx Instructions .Route Qty: 400 3RF Rx Instructions: Test blood sugars 4 times a day (DME) True Metrix Glucose Test Strip Strip See Rx Instructions .ROUTE .COMPLEX Qty: 300 3RF Dose Instruction: TEST BLOOD SUGAR THREE TIMES DAILY Rx Instructions: TEST BLOOD SUGAR THREE TIMES DAILY triamterene-hydrochlorothiazid 37.5-25 mg tablet 1 tab PO Q2D Qty: 90 3RF insulin asp prt-insulin aspart 100 unit/mL (70-30) insulin pen 7 unit subcut BID 90 Days Qty: 15 3RF Ozempic 0.25 mg or 0.5 mg (2 mg/3 mL) pen injector 0.25 mg subcut Q7D Qty: 9 1RF Rx Instructions: TAKE THIS MED EVERY TUESDAY levothyroxine 88 mcg tablet 88 mcg PO DAILY Qty: 90 3RF sertraline 100 mg tablet 100 mg PO DAILY Qty: 90 3RF clonidine 0.3 mg/24 hr patch weekly 1 patch transdermal WK Qty: 4 8RF Rx Instructions: 02/16/24 PER PT : THIS MED NOT STARTED YET. (DME) Prodigy No Coding Strip See Rx Instructions .Route Rx Instructions: Test blood sugar four times daily pravastatin 40 mg tablet 40 mg PO HS Qty: 90 3RF metformin 500 mg tablet 500 mg PO BID Qty: 180 3RF cranberry 500 mg Capsule 1,500 mg PO DAILY Rx Instructions: administer with meals Discontinued diltiazem HCl 180 mg capsule,extended release 24hr 180 mg PO BID Qty: 180 3RF clonidine HCl 0.2 mg tablet 0.2 mg PO BID PRN (Reason: hypertensive emergency) Qty: 20 3RF Discharge Orders: Discharge Order- CHF (Routine); Ordered 02/22/24 Ordered By: Bradley Webber/Other Patient Handouts: High Blood Sugar (Hyperglycemia), Managing Type 2 Diabetes Admission Data Admit Date/Time: 02/16/24 17:03 Attending Provider: Bradley Moreno Admit Provider: Antolin Loja Primary Care Provider: Katelyn Stark Other Providers: Antolin Loja Coding Level of Care Code 87869 INP/OBS DISCH >30 MIN Diagnoses Bronchitis J40 Asthma exacerbation J45.901 Coronavirus infection B34.2 Hypomagnesemia E83.42 Labile hypertension R09.89 Thrombocytopenia D69.6 Pleural effusion J90 Hypertrophic obstructive cardiomyopathy (HOCM) I42.1 Chronic kidney disease, stage 3 N18.3
== END 2024-02-22 15:57 | disposition home or self-care (01) | DRG 202 ==
LOC: ED 14:21 → SUATTDRO 17:03 → 1E 17:03 → 2S 02-19 14:08

== ENCOUNTER 2024-02-29 12:57 | Inpatient (IN) ==
[2024-02-29] MEDS: LACTATED RINGER'S 1,000 ML IV SCH ×2 (14:09→20:30)
--- NOTE | 2024-02-29 14:18 | CT Scan Report ---
CERVICAL SPINE CT CT DOSE: 1181.38 mGy.cm HISTORY: trauma TECHNIQUE: Multiaxial CT images of the cervical spine were performed and reformatted in the sagittal and coronal plane without the use of contrast. A dose lowering technique was utilized adhering to th e principles of ALARA. COMPARISON: None. FINDINGS: No fractures. No subluxation. Prevertebral soft tissues and the C1-C2 interval are intact. No pneumothorax. Severe disc space narrowing and endplate osteophytes from C3 through C7. IMPRESSION: No fractures within the cervical spine. ACT 112: Negative or not required by law. Electronically signed by: Tamir Sofia M.D. 02/29/2024 2:16 PM
--- NOTE | 2024-02-29 14:20 | CT Scan Report ---
CT head/brain wo con CLINICAL HISTORY: 78 years-old Female with trauma. Acute head trauma TECHNIQUE: Multiple axial CT images of the head were obtained without contrast. A dose lowering tech nique was utilized adhering to the principles of ALARA. COMPARISON: 07/28/2013. FINDINGS: No acute intracranial hemorrhage, midline shift, intracranial mass, hydrocephalus, territorial ischem ia or abnormal extra-axial collection. Involutional changes with chronic microvascular ischemic disea se. There is a 2.4 cm hypodense focus noted within the posterior mid left cerebellum on image 6 serie s 2 which is new from prior. The calvarium is intact. The paranasal sinuses, mastoid air cells, and middle ear cavities are clear . IMPRESSION: 1. No acute posttraumatic intracranial abnormality or calvarial fracture. 2. 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 ACT 112: Negative or not required by law. The above report was generated using voice recognition software. It may contain grammatical, syntax o r spelling errors. Electronically signed by: lEbert Mccormack M.D. 02/29/2024 2:18 PM
[2024-02-29 14:42] LABS: Basophils # (auto) 0.01 K/uL (0.00-0.20); Basophils % (auto) 0.1 %; Eosinophils # (auto) 0.07 K/uL (0.00-0.50); Eosinophils % (auto) 0.8 %; Hematocrit (blood only) 43.2 % (37.0-47.0); Hemoglobin 14.6 g/dl (12.0-16.0); Immature Granulocytes # (auto) 0.03 K/uL (0.01-0.20); Immature Granulocytes % (auto) 0.4 %; Lymphocytes # (auto) 1.19 K/uL (1.20-3.40); Lymphocytes % (auto) 13.9 %; Mean Corpuscular Hemoglobin 27.1 pg (25.0-34.0); Mean Corpuscular Hgb Conc 33.8 g/dL (32.0-36.0); Mean Corpuscular Volume 80.1 fL (80.0-100.0); Mean Platelet Volume 11.3 fL (9.4-12.4); Monocytes # (auto) 0.49 K/uL (0.11-0.59); Monocytes % (auto) 5.7 %; Neutrophils # (auto) 6.75 K/uL (1.40-6.50); Neutrophils % (auto) 79.1 %; Platelet Count 147 K/uL (130-400); RDW Standard Deviation 42.5 fL (36.4-46.3); Red Blood Count 5.39 M/uL (4.20-5.40); White Blood Count 8.54 K/ul (4.8-10.8)
--- NOTE | 2024-02-29 14:44 | CT Scan Report ---
MAXILLOFACIAL CT WITHOUT CONTRAST CLINICAL HISTORY: trauma COMPARISON STUDY: Head CT July 28, 2013. TECHNIQUE: A maxillofacial CT was performed without IV contrast. Coronal and sagittal reformats were viewed. Automated exposure control was utilized for the study. A dose lowering technique was utiliz ed adhering to the principles of ALARA. FINDINGS: Globes are intact. There is no retrobulbar hematoma. Alignment of the temporomandibular krystina nts is anatomic. No skull base fracture. Orbital floors are intact. Suspected nasal contusion is note d. There is a minimally displaced right nasal bone fracture. IMPRESSION: Minimally displaced right nasal bone fracture, likely acute. Nasal contusion. No addition al facial fractures. ACT 112: Negative or not required by law. Electronically signed by: Tej Forte M.D. 02/29/2024 2:43 PM
[2024-02-29 14:49] LABS: Adenovirus PCR Not Detected (NotDetected); Bordetella parapertussis PCR Not Detected (NotDetected); Bordetella pertussis PCR Not Detected (NotDetected); Chlamydia pneumoniae PCR Not Detected (NotDetected); Coronavirus 229E PCR Not Detected (NotDetected); Coronavirus CoV-2 (COVID19)PCR Not Detected (NotDetected); Coronavirus HKU1 PCR Not Detected (NotDetected); Coronavirus NL63 PCR Not Detected (NotDetected); Coronavirus OC43PCR Not Detected (NotDetected); Human Metapneumovirus PCR Not Detected (NotDetected); Influenza A PCR Not Detected (NotDetected); Influenza B PCR Not Detected (NotDetected); Mycoplasma pneumoniae PCR Not Detected (NotDetected); Parainfluenza Virus 1 PCR Not Detected (NotDetected); Parainfluenza Virus 2 PCR Not Detected (NotDetected); Parainfluenza Virus 3 PCR Not Detected (NotDetected); Parainfluenza Virus 4 PCR Not Detected (NotDetected); Respiratory Syncytial VirusPCR Not Detected (NotDetected); Rhinovirus/Enterovirus PCR Not Detected (NotDetected)
--- NOTE | 2024-02-29 14:54 | Emergency Department Note ---
Impression & Plan CHI (closed head injury), Generalized weakness, Syncope, Recurrent falls, SUNNY (acute kidney injury), Elevated troponin, Closed fracture nasal bone ED Provider Note ED Provider Note NAME: MACO ROCHA AGE:78 SEX: Female : 1945 ARRIVES VIA: EMS INFORMANT: Patient ED PROVIDER(s): Precious Cabrera DO CHIEF COMPLAINT: Multiple falls, syncope, head injury HPI: This is a 78-year-old female who presents emerged department via EMS after EMS was called for a welfare check. Patient states she has had multiple falls since being discharged home on Tuesday after being here for "fluid on her lungs". She states every time she stands up she gets dizzy and passes out. She has struck her head when falling in the bathroom on the toilet as well as following at bedside next to her her bed and striking her bed as well as the nightstand. She states she tries to get up to go to the bathroom or to get something to drink and feels so weak and dizzy upon standing that she falls and passes out. She does live alone. She states she has pain in her wrists from trying to put her arms out when she falls. She denies any abdominal pain, chest pain, shortness of breath, vision changes, neck or back pain, numbness or tingling. PAST MEDICAL HISTORY:See Below PAST SURGICAL HISTORY:See Below FAMILY HISTORY:See Below SOCIAL HISTORY:See Below HOME MEDICATIONS:See Below ALLERGIES:See Below VITALS:See Below PHYSICAL EXAMINATION: GENERAL: alert, well appearing, well nourished, no distress, non-toxic HEAD/FACE: nc, several abrasions noted to the face in various stages of healing EYE EXAM: normal conjunctiva, PERRL and EOM's grossly intact OROPHARYNX: no exudate, no erythema, lips, buccal mucosa, and tongue normal and mucous membranes are dry NECK: supple, no nuchal rigidity, no adenopathy, non-tender LUNGS: Clear to auscultation. Normal chest wall mechanics, no w/r/r HEART: no murmurs, S1 normal and S2 normal CHEST WALL: Pain with palpation over the sternum, no crepitus, no step-off, no ecchymosis ABDOMEN: abdomen soft, non-tender, normo-active bowel sounds, no masses, no rebound or guarding. BACK: Back is symmetrical on inspection and there is no deformity, no midline tenderness, no CVA tenderness. SKIN: no rashes, petechiae, orbruising UPPER EXTREMITIES: upper extremities are grossly normal. FROM, nml pulses b/l. LOWER EXTREMITIES: No pitting edema. FROM, nml pulses b/l. Scattered areas of ecchymosis in various stages of healing. No obvious deformities, sensation intact bilaterally, compartments soft, no joint effusions NEURO EXAM: Normal sensorium, cranial nerves II-XII grossly intact, normal speech, no facial droop,nogross weakness of arms, no gross weakness of legs. Gross sensation intact. No ataxia. Vital Signs: reviewed and remarkable Differential Diagnosis: vasovagal event, infection, hypoglycemia, electrolyte abnormalities, toxidrome, substance abuse, dysrhythmia, ACS, as well as others were entertained. MEDICAL DECISION MAKING: This is a 78-year-old female who presents emergency department after being brought by EMS following a well check to urine for recurrent falls, weakness, and syncope. She was afebrile vital signs stable on arrival. Patient with obvious facial trauma from her recent falls. She was able to provide history states symptoms were worse with standing suggesting an Ortho static component. I did review the patient's labs drawn and sent, IV established, EKG and x-rays performed but interpreted by me and patient sent for CT imaging additionally. She was started on gentle IV fluid hydration initially due to unknown cardiac status. Patient's EKG did not reveal any acute changes. Patient noted to have SUNNY on review of labs, no anemia, and imaging reassuring. Patient noted to have significant troponin elevation as well as mild lipase intervention which I suspect is more likely from hydration. Unclear etiology of elevated troponin this patient denies chest pain or shortness of breath on exam although does have risk factors for ACS. I suspect some of this may be related to her SUNNY additionally. No evidence of rhabdomyolysis. No evidence of worsening infection. Given patient appeared clinically dry on exam and had SUNNY on evaluation of labs, I suspect much of her symptoms are related to dehydration. Patient did have a recent echo during her last admission that was reviewed and was well-appearing. After review of this patient's fluids opened up to help rehydrate her quicker. Case discussed with the hospitalist team for additional evaluation and management. Unfortunately patient does live alone and will need additional care and likely PT/OT due to concern for recent recurrent falls and ability to care for herself. No cerebellar infarct was noted on head CT, age- indeterminate. Patient's symptoms as described by her seem more orthostatic in nature as a only occur when she stands up. I do not suspect acute posterior stroke at this time. Consultation(s): 1550: Discussed with Dr. Loja, [place] hospitalist, for additional evaluation and mgmt. ER Treatment Provided: See below Diagnostics Interpreted By Me: -ECG: Normal sinus at 77, PAC noted, left axis, normal QRS, prolonged QTc, nonspecific ST/T wave changes -Cardiac Monitoring: An order was placed for continuous cardiac monitoring. The monitor shows a rate of 82 with normal sinus rhythm. -Laboratory studies: As stated above and show below. -Imaging studies: X-ray Chest: A single view study of the chest was reviewed and was negative for cardiomegaly, focal infiltrate, effusion, pulmonary edema, or wide mediastinum. Triage Nursing Note Reviewed Prior/Outside Records Reviewed -recent discharge summary reviewed Past Med/Surg History Medical History Type 2 diabetes mellitus with obesity Asthma Chronic kidney disease, stage 3 Compensated HCV cirrhosis Hypertension Hypertrophic obstructive cardiomyopathy (HOCM) Hypothyroidism Left ventricular outflow tract obstruction Surgical History S/P hysterectomy S/P appendectomy Family History Son Myocardial infarction Other Hypertension Melanoma Denies family history of Ovarian cancer Prostate cancer Breast cancer Social History Smoking Status: Never smoker Tobacco Type: Cigars Second Hand Exposure: No; Do You Dip or Chew Tobacco: No; Hx Alcohol Use: No Hx Substance Use: No Preferred Language: Yoruba Communication Ability: Effective Visual Impairment: No Limitations Hearing Ability: Normal 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 Beliefs That Will Affect Care: None marital status: Current Living Situation: Alone Current Living Situation Comment: alone current occupational status: retired Other Information That Helps Us Care for You: No Feels Safe at Home: Yes Safety Concerns: Feels Safe At This Time Childhood Exposure to Second-Hand Smoke: No Dental Care, Regularly: No Physical Activity Frequency: 3-4 Times per Week Seatbelt Use: always Sunscreen Use: No Assistive Devices: None Allergies Allergies Allergy/AdvReac Type Severity Reaction Status Date / Time pollen extracts Allergy Intermediate SNEEZING, Verified 02/29/24 13:33 CONGESTION aspirin AdvReac Intermediate N/V AND Verified 02/29/24 13:33 AFFECTS LIVER Home Meds Home Medications Medication Instructions Recorded Confirmed blood sugar diagnostic (Prodigy No 03/31/23 02/23/24 Coding strips) cranberry 500 mg capsule 1,500 mg PO DAILY 02/16/24 02/29/24 Previous Rx's Medication Instructions Recorded BD Ultra-Fine Lin Pen Needle 32 #200 ea 12/24/22 gauge x 5/32" (pen needle, diabetic) valsartan 80 mg tablet 80 mg PO BID #180 tabs 04/14/23 lancets 30 gauge #400 ea 05/02/23 blood sugar diagnostic (True #300 strips 08/22/23 Metrix Glucose Test Strip) triamterene 37.5 1 tab PO Q2D #90 tabs 09/15/23 mg-hydrochlorothiazide 25 mg tablet insulin aspar prot-insulin aspart 7 unit (0.07 mL) subcut BID 90 11/15/23 100 unit/mL (70-30) subcutaneous days #15 mL pen metformin 500 mg tablet 500 mg PO BID #180 tabs 12/23/23 pravastatin 40 mg tablet 40 mg PO HS #90 tabs 12/23/23 clonidine 0.3 mg/24 hr weekly 1 patch transdermal WK #4 ea 01/31/24 transdermal patch semaglutide 0.25 mg or 0.5 mg (2 0.25 mg (0.368 mL) subcut Q7D #9 mL 02/08/24 mg/3 mL) subcutaneous pen injector (Ozempic) levothyroxine 88 mcg tablet 88 mcg PO DAILY #90 tabs 02/13/24 sertraline 100 mg tablet 100 mg PO DAILY #90 tabs 02/13/24 hydralazine 25 mg tablet 25 mg PO TID #100 tabs 02/22/24 metoprolol tartrate 25 mg tablet 25 mg PO BID #60 tabs 02/22/24 Results & Data (ED) Vital Signs Vital Signs - 24 hr 02/29/24 17:00 Blood Pressure 158/71 H Blood Pressure Mean 98 Laboratory Data 03/01/24 05:42 03/01/24 05:42 Lab Results 02/29/24 02/29/24 02/29/24 Range/Units 13:16 13:35 14:18 WBC Cancelled 8.54 RBC Cancelled 5.39 Hgb Cancelled 14.6 Hct Cancelled 43.2 MCV Cancelled 80.1 MCH Cancelled 27.1 MCHC Cancelled 33.8 RDW Std Deviation Cancelled 42.5 RDW Coeff of Luther Cancelled 15.0 H Plt Count Cancelled 147 MPV Cancelled 11.3 Immature Gran % (Auto) Cancelled 0.4 Neut % (Auto) Cancelled 79.1 Lymph % (Auto) Cancelled 13.9 [place] % (Auto) Cancelled 5.7 Eos % (Auto) Cancelled 0.8 Baso % (Auto) Cancelled 0.1 Neut # (Auto) Cancelled 6.75 H Lymph # (Auto) Cancelled 1.19 L [place] # (Auto) Cancelled 0.49 Eos # (Auto) Cancelled 0.07 Baso # (Auto) Cancelled 0.01 Immature Gran # (Auto) Cancelled 0.03 Absolute Nucleated RBC Cancelled Nucleated RBC % (auto) Cancelled Neutrophils % (Manual) Cancelled Band Neutrophils % Cancelled Lymphocytes % (Manual) Cancelled Prolymphocyte % Cancelled Reactive Lymphs % (Man) Cancelled Monocytes % (Manual) Cancelled Eosinophils % (Manual) Cancelled Basophils % (Manual) Cancelled Metamyelocytes % (Man) Cancelled Myelocytes % (Man) Cancelled Promyelocytes % (Man) Cancelled Blast Cells % (Manual) Cancelled Plasma Cell % (Manual) Cancelled Other Cells % Cancelled Nucleated RBC % Cancelled Neutrophils # (Manual) Cancelled Band Neutrophils # Cancelled Total Absolute Neuts Cancelled Lymphocytes # (Manual) Cancelled Prolymphocyte # Cancelled Reactive Lymphs # Cancelled Total Abs Lymphocytes Cancelled Monocytes # (Manual) Cancelled Eosinophils # (Manual) Cancelled Basophils # (Manual) Cancelled Metamyelocytes # (Man) Cancelled Myelocytes # (Manual) Cancelled Promyelocytes # (Man) Cancelled Blast Cells # (Man) Cancelled Plasma Cell # (Manual) Cancelled Other Cells # Cancelled Nucleated RBCs # (Man) Cancelled Hypersegmented Neuts Cancelled Hyposegmented Neuts Cancelled Hypogranular Neuts Cancelled Large Granular Lymphs Cancelled # Lrg Granular Lymphs Cancelled Hairy Cells Cancelled Smudge Cells Cancelled Toxic Granulation Cancelled Toxic Vacuolation Cancelled Dohle Bodies Cancelled Estela Rods Cancelled Platelet Estimate Cancelled Hypogranular Platelets Cancelled Giant Platelets Cancelled Platelet Satelliting Cancelled RBC Morphology Cancelled Polychromasia Cancelled Hypochromasia Cancelled Poikilocytosis Cancelled Basophilic Stippling Cancelled Anisocytosis Cancelled Microcytosis Cancelled Macrocytosis Cancelled Spherocytes Cancelled Pappenheimer Bodies Cancelled Sickle Cells Cancelled Target Cells Cancelled Tear Drop Cells Cancelled Ovalocytes Cancelled Stomatocytes Cancelled [place] Bodies Cancelled Echinocytes Cancelled Acanthocytes (Spur) Cancelled Rouleaux Cancelled RBC Agglutinates Cancelled Schistocytes Cancelled Sezary Cell Cancelled PT 11.5 (9.0-12.0) Seconds INR 1.1 (0.9-1.1) Sodium 133 L (136-145) mmol/L Potassium 3.5 (3.5-5.1) mmol/L Chloride 93 L (98-107) mmol/L Carbon Dioxide 25 (21-32) mmol/L Anion Gap 15 H (3-11) BUN 139 H (6-23) mg/dl Creatinine 2.18 H (0.6-1.2) mg/dl Est Cr Clr Drug Dosing 20.1 ml/min Est GFR ( Amer) 24.7 ml/min Est GFR (Non-Af Amer) 21.3 ml/min BUN/Creatinine Ratio 63.8 H (10-20) Glucose 227 H (70-99(Fasting)) mg/dl POC Glucose 223 H (70-99) mg/dl Calcium 8.9 (8.6-10.3) mg/dl Magnesium 3.3 H (1.7-2.4) mg/dl Total Bilirubin 0.8 (0.2-1.0) mg/dl AST 47 H (13-39) U/L ALT 46 (7-52) U/L Alkaline Phosphatase 62 (34-104) U/L Total Creatine Kinase 118 (26-192) U/L Troponin I High Sens 843.3 H* (0-14) pg/ml Total Protein 7.0 (6.0-8.3) gm/dl Albumin 3.7 (3.4-5.0) gm/dl Globulin 3.3 (2.5-4.0) gm/dl Albumin/Globulin Ratio 1.1 (0.9-2) Lipase 235 H (11-82) U/L TSH 4.611 H (0.300-4.500) uIu/ml Free T4 1.06 (0.61-1.60) ng/dl Urine Color Urine Appearance (Clear) Urine pH (4.5-7.5) Ur Specific [place] (1.000-1.030) Urine Protein (Negative) Urine Glucose (UA) (Negative) Urine Ketones (Negative) Urine Blood (Negative) Urine Nitrite (Negative) Urine Bilirubin (Negative) Urine Urobilinogen (Negative) Ur Leukocyte Esterase (Negative) Adenovirus (PCR) Not Detected (NotDetected) B. pertussis DNA (PCR) Not Detected (NotDetected) B.parapertussis DNA PCR Not Detected (NotDetected) C. pneumoniae DNA (PCR) Not Detected (NotDetected) Coronavirus OC43 (PCR) Not Detected (NotDetected) Coronavirus HKU1 (PCR) Not Detected (NotDetected) Coronavirus 229E (PCR) Not Detected (NotDetected) SARS-CoV-2 (PCR) Not Detected (NotDetected) Coronavirus NL63 (PCR) Not Detected (NotDetected) Human Metapneumovir PCR Not Detected (NotDetected) Influenza Type A (PCR) Not Detected (NotDetected) Influenza Type B (PCR) Not Detected (NotDetected) M. pneumoniae (PCR) Not Detected (NotDetected) Parainfluenza 1 (PCR) Not Detected (NotDetected) Parainfluenza 2 (PCR) Not Detected (NotDetected) Parainfluenza 3 (PCR) Not Detected (NotDetected) Parainfluenza 4 (PCR) Not Detected (NotDetected) RSV (PCR) Not Detected (NotDetected) Entero/Rhino (PCR) Not Detected (NotDetected) Blood Parasites ID Cancelled 02/29/24 Range/Units 15:04 WBC RBC Hgb Hct MCV MCH MCHC RDW Std Deviation RDW Coeff of Ulther Plt Count MPV Immature Gran % (Auto) Neut % (Auto) Lymph % (Auto) [place] % (Auto) Eos % (Auto) Baso % (Auto) Neut # (Auto) Lymph # (Auto) [place] # (Auto) Eos # (Auto) Baso # (Auto) Immature Gran # (Auto) Absolute Nucleated RBC Nucleated RBC % (auto) Neutrophils % (Manual) Band Neutrophils % Lymphocytes % (Manual) Prolymphocyte % Reactive Lymphs % (Man) Monocytes % (Manual) Eosinophils % (Manual) Basophils % (Manual) Metamyelocytes % (Man) Myelocytes % (Man) Promyelocytes % (Man) Blast Cells % (Manual) Plasma Cell % (Manual) Other Cells % Nucleated RBC % Neutrophils # (Manual) Band Neutrophils # Total Absolute Neuts Lymphocytes # (Manual) Prolymphocyte # Reactive Lymphs # Total Abs Lymphocytes Monocytes # (Manual) Eosinophils # (Manual) Basophils # (Manual) Metamyelocytes # (Man) Myelocytes # (Manual) Promyelocytes # (Man) Blast Cells # (Man) Plasma Cell # (Manual) Other Cells # Nucleated RBCs # (Man) Hypersegmented Neuts Hyposegmented Neuts Hypogranular Neuts Large Granular Lymphs # Lrg Granular Lymphs Hairy Cells Smudge Cells Toxic Granulation Toxic Vacuolation Dohle Bodies Estela Rods Platelet Estimate Hypogranular Platelets Giant Platelets Platelet Satelliting RBC Morphology Polychromasia Hypochromasia Poikilocytosis Basophilic Stippling Anisocytosis Microcytosis Macrocytosis Spherocytes Pappenheimer Bodies Sickle Cells Target Cells Tear Drop Cells Ovalocytes Stomatocytes [place] Bodies Echinocytes Acanthocytes (Spur) Rouleaux RBC Agglutinates Schistocytes Sezary Cell PT (9.0-12.0) Seconds INR (0.9-1.1) Sodium (136-145) mmol/L Potassium (3.5-5.1) mmol/L Chloride (98-107) mmol/L Carbon Dioxide (21-32) mmol/L Anion Gap (3-11) BUN (6-23) mg/dl Creatinine (0.6-1.2) mg/dl Est Cr Clr Drug Dosing ml/min Est GFR ( Amer) ml/min Est GFR (Non-Af Amer) ml/min BUN/Creatinine Ratio (10-20) Glucose (70-99(Fasting)) mg/dl POC Glucose (70-99) mg/dl Calcium (8.6-10.3) mg/dl Magnesium (1.7-2.4) mg/dl Total Bilirubin (0.2-1.0) mg/dl AST (13-39) U/L ALT (7-52) U/L Alkaline Phosphatase (34-104) U/L Total Creatine Kinase (26-192) U/L Troponin I High Sens (0-14) pg/ml Total Protein (6.0-8.3) gm/dl Albumin (3.4-5.0) gm/dl Globulin (2.5-4.0) gm/dl Albumin/Globulin Ratio (0.9-2) Lipase (11-82) U/L TSH (0.300-4.500) uIu/ml Free T4 (0.61-1.60) ng/dl Urine Color Yellow Urine Appearance Clear (Clear) Urine pH 5.0 (4.5-7.5) Ur Specific [place] 1.016 (1.000-1.030) Urine Protein Negative (Negative) Urine Glucose (UA) Negative (Negative) Urine Ketones Negative (Negative) Urine Blood Negative (Negative) Urine Nitrite Negative (Negative) Urine Bilirubin Negative (Negative) Urine Urobilinogen Negative (Negative) Ur Leukocyte Esterase Negative (Negative) Adenovirus (PCR) (NotDetected) B. pertussis DNA (PCR) (NotDetected) B.parapertussis DNA PCR (NotDetected) C. pneumoniae DNA (PCR) (NotDetected) Coronavirus OC43 (PCR) (NotDetected) Coronavirus HKU1 (PCR) (NotDetected) Coronavirus 229E (PCR) (NotDetected) SARS-CoV-2 (PCR) (NotDetected) Coronavirus NL63 (PCR) (NotDetected) Human Metapneumovir PCR (NotDetected) Influenza Type A (PCR) (NotDetected) Influenza Type B (PCR) (NotDetected) M. pneumoniae (PCR) (NotDetected) Parainfluenza 1 (PCR) (NotDetected) Parainfluenza 2 (PCR) (NotDetected) Parainfluenza 3 (PCR) (NotDetected) Parainfluenza 4 (PCR) (NotDetected) RSV (PCR) (NotDetected) Entero/Rhino (PCR) (NotDetected) Blood Parasites ID Administered Medications Acetaminophen (Acetaminophen 325 Mg Tab) 650 mg PO Q4H PRN PRN Reason: Pain or Fever Stop: 03/30/24 19:00 Last Admin: 03/01/24 07:35 Dose: 650 mg Documented By: Admin: 02/29/24 20:58 Dose: 650 mg Documented By: ALFONSO Aspirin (Aspirin 81 Mg Ectab) 81 mg PO QAM [facility] Stop: 03/31/24 08:59 Last Admin: 03/01/24 09:40 Dose: 81 mg Documented By: MELITON Hydralazine HCl (Hydralazine Hcl 25 Mg Tab) 25 mg PO TID [facility] Stop: 03/30/24 20:59 Last Admin: 03/01/24 14:08 Dose: Not Given Documented By: Admin: 03/01/24 09:40 Dose: 25 mg Documented By: Admin: 02/29/24 20:59 Dose: 25 mg Documented By: ALFONSO Lactated Ringer's (Lr) 1,000 mls @ 100 mls/hr IV .Q10H [facility] Stop: 03/02/24 02:29 Last Admin: 03/01/24 06:30 Dose: 100 mls/hr Documented By: Infusion: 03/01/24 06:30 Dose: Infused Documented By: Admin: 02/29/24 20:30 Dose: 100 mls/hr Documented By: ALFONSO Insulin Aspart (Insulin Aspart Per Unit Charge) 0 units SC ACHS [facility] Stop: 03/30/24 20:59 Last Admin: 03/01/24 13:48 Dose: 5 units Documented By: MELITON Co-signed By: [facility] Admin: 03/01/24 09:49 Dose: 4 units Documented By: MELITON Co-signed By: [facility] Admin: 02/29/24 21:05 Dose: 2 units Documented By: ALFONSO Co-signed By: IVAN Levothyroxine Sodium (Levothyroxine Sodium 88 Mcg Tablet) 88 mcg PO DAILYBB [facility] Stop: 03/31/24 06:29 Last Admin: 03/01/24 05:53 Dose: 88 mcg Documented By: ALFONSO Metoprolol Tartrate (Metoprolol Tartrate 25 Mg Tab) 25 mg PO BID [facility] Stop: 03/30/24 20:59 Last Admin: 03/01/24 09:41 Dose: 25 mg Documented By: Admin: 02/29/24 20:59 Dose: 25 mg Documented By: ALFONSO Nystatin (Nystatin Powder 15gm Btl) 1 appln EXT BID PRN PRN Reason: Rash Stop: 03/31/24 02:06 Last Admin: 03/01/24 04:55 Dose: 1 appln Documented By: ALFONSO Sertraline HCl (Sertraline Hcl 100 Mg Tablet) 100 mg PO DAILY [facility] Stop: 03/31/24 08:59 Last Admin: 03/01/24 09:41 Dose: 100 mg Documented By: MELITON Discontinued Medications Lactated Ringer's (Lr) 1,000 mls @ 125 mls/hr IV .Q8H [facility] Stop: 03/30/24 13:59 Last Infusion: 03/01/24 02:51 Dose: Infused Documented By: Admin: 02/29/24 18:51 Dose: 125 mls/hr Documented By: Infusion: 02/29/24 18:51 Dose: Infused Documented By: Admin: 02/29/24 14:09 Dose: 125 mls/hr Documented By: MATEUS Lidocaine (Lidocaine 5% 1 Patch) 1 patch TD NOW ONE Stop: 02/29/24 22:01 Last Admin: 02/29/24 23:29 Dose: 1 patch Documented By: ALFONSO Miscellaneous (Remove Lidoderm Patch) 1 each N/A ONE ONE Stop: 03/01/24 10:01 Last Admin: 03/01/24 10:00 Dose: 1 each Documented By: MELITON Potassium Chloride (Potassium Chloride Crtab 20 Meq Tabcr) 40 meq PO NOW STA Stop: 03/01/24 08:36 Last Admin: 03/01/24 09:40 Dose: 40 meq Documented By: MELITON Imaging Data Radiologist's Impression: Cervical Spine CT 02/29/24 13:[address] DOSE: 1181.38 mGy.cm HISTORY: trauma TECHNIQUE: Multiaxial CT images of the cervical spine were performed and reformatted in the sagittal and coronal plane without the use of contrast. A dose lowering technique was utilized adhering to the principles of ALARA. COMPARISON: None. FINDINGS: No fractures. No subluxation. Prevertebral soft tissues and the C1-C2 interval are intact. No pneumothorax. Severe disc space narrowing and endplate osteophytes from C3 through C7. IMPRESSION: No fractures within the cervical spine. ACT 112: Negative or not required by law. Electronically signed by: Tamir Sofia M.D. 02/29/2024 2:16 PM Chest X-Ray 02/29/24 13:48 XR chest 1V not portable CLINICAL HISTORY: trauma COMPARISON STUDY: Chest radiograph February 21, 2024. FINDINGS: Lung volumes are normal. Lungs are clear. There is no pneumothorax or pleural effusion. Cardiac size is normal. Mediastinal contours are normal. There is no evidence for pulmonary edema. IMPRESSION: No acute cardiopulmonary findings. No change in appearance of the chest. ACT 112: Negative or not required by law. Electronically signed by: Tej Forte M.D. 02/29/2024 3:[address] 02/29/24 13:[address] WITHOUT CONTRAST CLINICAL HISTORY: trauma COMPARISON STUDY: Head CT July 28, 2013. TECHNIQUE: A maxillofacial CT was performed without IV contrast. Coronal and sagittal reformats were viewed. Automated exposure control was utilized for the study. A dose lowering technique was utilized adhering to the principles of ALARA. FINDINGS: Globes are intact. There is no retrobulbar hematoma. Alignment of the temporomandibular joints is anatomic. No skull base fracture. Orbital floors are intact. Suspected nasal contusion is noted. There is a minimally displaced right nasal bone fracture. IMPRESSION: Minimally displaced right nasal bone fracture, likely acute. Nasal contusion. No additional facial fractures. ACT 112: Negative or not required by law. Electronically signed by: Tej Forte M.D. 02/29/2024 2:[address] 02/29/24 13:48 CT head/brain wo con CLINICAL HISTORY: 78 years-old Female with trauma. Acute head trauma TECHNIQUE: Multiple axial CT images of the head were obtained without contrast. A dose lowering technique was utilized adhering to the principles of ALARA. COMPARISON: 07/28/2013. FINDINGS: No acute intracranial hemorrhage, midline shift, intracranial mass, hydrocephalus, territorial ischemia or abnormal extra-axial collection. Involutional changes with chronic microvascular ischemic disease. There is a 2.4 cm hypodense focus noted within the posterior mid left cerebellum on image 6 series 2 which is new from prior. The calvarium is intact. The paranasal sinuses, mastoid air cells, and middle ear cavities are clear. IMPRESSION: 1. No acute posttraumatic intracranial abnormality or calvarial fracture. 2. 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 ACT 112: Negative or not required by law. The above report was generated using voice recognition software. It may contain grammatical, syntax or spelling errors. Electronically signed by: Elbert Mccormack M.D. 02/29/2024 2:18 PM Wrist X-Ray 02/29/24 13:48 XR wrist LT 2V CLINICAL HISTORY: trauma. Fall. Wrist pain. COMPARISON STUDY: None. FINDINGS: The bones are osteopenic. No acute fracture or dislocation within the left wrist. There is mild soft tissue swelling. Mild degenerative changes within the left wrist. IMPRESSION: No acute fracture or dislocation within the left wrist. ACT 112: Negative or not required by law. Electronically signed by: Tamir Sofia M.D. 02/29/2024 3:20 PM Wrist X-Ray 02/29/24 13:48 XR wrist RT 2V HISTORY: 78 years-old Female trauma acute right wrist pain status post fall COMPARISON: None TECHNIQUE: 2 views the right wrist FINDINGS: Demineralized appearance of the bones. [id number] osteoarthritis. No acute fracture, dislocation, osseous erosion or opaque foreign body. IMPRESSION: No acute fracture. ACT 112: Negative or not required by law. The above report was generated using voice recognition software. It may contain grammatical, syntax or spelling errors. Electronically signed by: Elbert Mccormack M.D. 02/29/2024 3:10 PM Discharge Plan Visit Data Chief Complaint: Illness Stated Complaint: FALL ED Provider: Precious Cabrera Discharge Problem: CHI (closed head injury), Generalized weakness, Syncope, Recurrent falls, SUNNY (acute kidney injury), Elevated troponin, Closed fracture nasal bone Patient Disposition: Admitted As Inpatient Discharge Instructions Interventions: ED Discharge Assessment Last Done: 02/29/24 17:40
[2024-02-29 15:11] LABS: INR 1.1 (0.9-1.1); Prothrombin Time 11.5 Seconds (9.0-12.0)
--- NOTE | 2024-02-29 15:11 | XRay Report ---
XR wrist RT 2V HISTORY: 78 years-old Female trauma acute right wrist pain status post fall COMPARISON: None TECHNIQUE: 2 views the right wrist FINDINGS: Demineralized appearance of the bones. Uovv-ap-[id number] osteoarthritis. No acute fracture, dislocatio n, osseous erosion or opaque foreign body. IMPRESSION: No acute fracture. ACT 112: Negative or not required by law. The above report was generated using voice recognition software. It may contain grammatical, syntax o r spelling errors. Electronically signed by: Elbert Mccormack M.D. 02/29/2024 3:10 PM
--- NOTE | 2024-02-29 15:21 | XRay Report ---
XR wrist LT 2V CLINICAL HISTORY: trauma. Fall. Wrist pain. COMPARISON STUDY: None. FINDINGS: The bones are osteopenic. No acute fracture or dislocation within the left wrist. There is mild soft tissue swelling. Mild degenerative changes within the left wrist. IMPRESSION: No acute fracture or dislocation within the left wrist. ACT 112: Negative or not required by law. Electronically signed by: Tamir Sofia M.D. 02/29/2024 3:20 PM
--- NOTE | 2024-02-29 15:23 | XRay Report ---
XR chest 1V not portable CLINICAL HISTORY: trauma COMPARISON STUDY: Chest radiograph February 21, 2024. FINDINGS: Lung volumes are normal. Lungs are clear. There is no pneumothorax or pleural effusion. Car diac size is normal. Mediastinal contours are normal. There is no evidence for pulmonary edema. IMPRESSION: No acute cardiopulmonary findings. No change in appearance of the chest. ACT 112: Negative or not required by law. Electronically signed by: Tej Forte M.D. 02/29/2024 3:22 PM
[2024-02-29 15:24] LABS: Albumin Globulin Ratio 1.1 (0.9-2); Albumin Level 3.7 gm/dl (3.4-5.0); BUN Creatinine Ratio 63.8 (10-20); Bilirubin,Total 0.8 mg/dl (0.2-1.0); Calcium 8.9 mg/dl (8.6-10.3); Creatinine Clr Calc Pharmacy 20.1 ml/min; Est GFR (African American) 24.7 ml/min; Est GFR (Non-African American) 21.3 ml/min; Globulin 3.3 gm/dl (2.5-4.0); Magnesium 3.3 mg/dl (1.7-2.4); Potassium 3.5 mmol/L (3.5-5.1); Thyroid Stimulating Hormone 4.611 uIu/ml (0.300-4.500); Troponin I High Sensitivity 843.3 pg/ml (0-14)
[2024-02-29 15:29] LABS: Appearance Urine Clear (Clear); Bilirubin Urine Negative (Negative); Blood Urine Negative (Negative); Color Urine Yellow; Glucose Urine UA Negative (Negative); Ketones Urine Negative (Negative); Leukocyte Esterase Urine Negative (Negative); Nitrite Urine Negative (Negative); Protein Urine Negative (Negative); Specific Gravity Urine 1.016 (1.000-1.030); Urobilinogen Urine Negative (Negative)
--- NOTE | 2024-02-29 16:00 | XRay Report ---
XR hip LT 2V w pelvis CLINICAL HISTORY: trauma. Left hip pain. COMPARISON STUDY: Left femur 05/20/2018. FINDINGS: No fracture or dislocation within the pelvis or hips. The sacrum is intact. Mild degenerati ve changes within the bilateral hips. Soft tissues are unremarkable. IMPRESSION: No fracture or dislocation within the pelvis or hips. ACT 112: Negative or not required by law. Electronically signed by: Tamir Sofia M.D. 02/29/2024 3:58 PM
[2024-02-29 16:03] LABS: T4 Free Thyroxine 1.06 ng/dl (0.61-1.60)
--- NOTE | 2024-02-29 16:32 | History & Physical Report ---
Date of Service February 29, 2024 Assessment & Plan (1) Recurrent falls: Plan: Recurrent falls at home since discharge on 02/24 Patient lives alone Reports she fell 78x; always when standing; she would feel lightheaded and passed out for an unknown period of time Patient manages her own medications at home, but is unsure what she is taking for her blood pressure Base CT revealed minimally displaced right nasal bone fracture with nasal contusion Imaging revealed no other acute fractures or dislocations, however... Head CT revealed age-indeterminate left cerebellar infarct (new from 2013 comparison); see #2 CK WNL at 118 In the setting for HOCM, concern for outflow obstruction with concomitant dehydration IVF resuscitation with LR at 100mL/hr x 3 Case management consulted for medications and discharge planning Fall precautions PT/OT consulted A.m. CBC, BMP, mag, fasting lipid panel (2) CVA (cerebral vascular accident): Plan: Head CT revealed age-indeterminate left cerebellar infarct (new from 2012 comparison) Brain MRI, brain MRI angio, and carotid Dopplers ordered, pending Will plan to start patient on aspirin 81 mg daily (3) Dehydration: Plan: Patient has been unable to eat/drink at home BUN/creatinine severely elevated at 63.8 IVF resuscitation (as above) (4) SUNNY (acute kidney injury): Plan: BUN 139, creatinine 2.18 (baseline 1.2), eGFR 20.1 Avoid nephrotoxic agents Hold triamterene-HCTZ Hold valsartan Hold statin (5) Elevated troponin: Plan: Troponin 843.3-->842.6 ECG sinus rhythm with PACs Patient denies CP Continuous telemonitoring Trend q6h (6) Hypermagnesemia: Plan: Magnesium 3.3 on arrival Fluid repletion Recheck a.m. mag (7) Type 2 diabetes mellitus with obesity: Plan: Last A1c 7.1% on 12/23/2023 Glucose 223 on arrival SSI while inpatient Will defer Lantus in the setting of acute SUNNY BSG ACHS Adjust regimen as needed (8) Hypertrophic obstructive cardiomyopathy (HOCM): Plan: Likely a contributing factor in recurrent syncope (9) Labile hypertension: Plan: Hx of labile hypertension requiring clonidine patches PCU status Continue metoprolol Continue hydralazine Plan Disposition: Admit to PCU telemetry DNR/DNI AHA, T2DM diet VTE PPx: SCDs History of Present Illness Chief Complaint: Recurrent falls Primary Care Provider: Katelyn Stark MD Leeann is a 78yo female with PMH HOCM, labile HTN, mitral regurgitation, dyslipidemia, T2DM, asthma, hypothyroidism, depression with anxiety, and CKD stage III. Patient arrives via EMS for recurrent falls after being discharged on Saturday 02/24. Patient reports that she had 78 falls at home that all occurred when she went to stand up. Whenever she would stand she would pass out. She lives alone, and is unsure how long she can be on the ground for, but would wake up "cold his eyes". Patient reports that she does not feel dizzy or presyncopal when she is resting or laying flat. She reports that she has not been able to eat anything because she cannot reach it without passing out. She also notes that she struck her face on the commode when she got up to use the restroom, and believes that she broke her nose. Patient does not use a walker or cane for ambulation. She reports that she only took one of her new blood pressure medications today, but is unsure what she took. Patient manages her own medications at home. She denies any smoking, alcohol use, tobacco use. ED Course: Lactated Ringer at 125mL/hr ROS: Patient endorses recurrent falls, Patient denies fever, chills, nightsweats, chest pain, SOB, chest palpitations, cough, abdominal pain, N/V/D, constipation, pain in legs. Allergies Allergy/AdvReac Type Severity Reaction Status Date / Time pollen extracts Allergy Intermediate SNEEZING, Verified 02/29/24 13:33 CONGESTION aspirin AdvReac Intermediate N/V AND Verified 02/29/24 13:33 AFFECTS LIVER Home Medications Medication Instructions Recorded Confirmed Type BD Ultra-Fine Lin Pen Needle 32 #200 ea 12/24/22 02/23/24 Rx gauge x 5/32" (pen needle, diabetic) blood sugar diagnostic (Prodigy No 03/31/23 02/23/24 History Coding strips) valsartan 80 mg tablet 80 mg PO BID #180 tabs 04/14/23 02/29/24 Rx lancets 30 gauge #400 ea 05/02/23 02/23/24 Rx blood sugar diagnostic (True #300 strips 08/22/23 02/23/24 Rx Metrix Glucose Test Strip) triamterene 37.5 1 tab PO Q2D #90 tabs 09/15/23 02/29/24 Rx mg-hydrochlorothiazide 25 mg tablet insulin aspar prot-insulin aspart 7 unit (0.07 mL) subcut BID 90 11/15/23 02/29/24 Rx 100 unit/mL (70-30) subcutaneous days #15 mL pen metformin 500 mg tablet 500 mg PO BID #180 tabs 12/23/23 02/29/24 Rx pravastatin 40 mg tablet 40 mg PO HS #90 tabs 12/23/23 02/29/24 Rx clonidine 0.3 mg/24 hr weekly 1 patch transdermal WK #4 ea 01/31/24 02/29/24 Rx transdermal patch semaglutide 0.25 mg or 0.5 mg (2 0.25 mg (0.368 mL) subcut Q7D #9 mL 02/08/24 02/29/24 Rx mg/3 mL) subcutaneous pen injector (Ozempic) levothyroxine 88 mcg tablet 88 mcg PO DAILY #90 tabs 02/13/24 02/29/24 Rx sertraline 100 mg tablet 100 mg PO DAILY #90 tabs 02/13/24 02/29/24 Rx cranberry 500 mg capsule 1,500 mg PO DAILY 02/16/24 02/29/24 History hydralazine 25 mg tablet 25 mg PO TID #100 tabs 02/22/24 02/29/24 Rx metoprolol tartrate 25 mg tablet 25 mg PO BID #60 tabs 02/22/24 02/29/24 Rx Past Med/Surg History Medical History Type 2 diabetes mellitus with obesity Asthma Chronic kidney disease, stage 3 Compensated HCV cirrhosis Hypertension Hypertrophic obstructive cardiomyopathy (HOCM) Hypothyroidism Left ventricular outflow tract obstruction Surgical History S/P hysterectomy S/P appendectomy Family History Son Myocardial infarction Other Hypertension Melanoma Denies family history of Ovarian cancer Prostate cancer Breast cancer Social History Smoking Status: Never smoker Tobacco Type: Cigars Second Hand Exposure: No; Do You Dip or Chew Tobacco: No; Hx Alcohol Use: No Hx Substance Use: No Preferred Language: Citizen Of [place] Communication Ability: Effective Visual Impairment: No Limitations Hearing Ability: Normal Headhunter Required: No Beliefs That Will Affect Care: None marital status: Current Living Situation: Alone Current Living Situation Comment: alone current occupational status: retired Other Information That Helps Us Care for You: No Feels Safe at Home: Yes Safety Concerns: Feels Safe At This Time Childhood Exposure to Second-Hand Smoke: No Dental Care, Regularly: No Physical Activity Frequency: 3-4 Times per Week Seatbelt Use: always Sunscreen Use: No Assistive Devices: Glasses Review of Systems Review of Systems: See HPI above Physical Exam Physical Exam: General: no acute distress; non-toxic appearing; SpO2 97% on RA HEENT: Bruising above the left eye, and dried blood in the right nostril; both nostrils are patent; no scleral icterus; PERRLA; moist mucus membrane; vision and hearing grossly intact Neck: supple; no lymphadenopathy; trachea midline Skin: warm, dry without signs of tenting; no cyanosis; no rashes, bruising, lesions, or erythema noted CV: chest wall NTP; RRR; S1/S2 normal; 3/6 ejection murmur auscultated at the second ICS MCL with radiation to the carotids; pulses intact and symmetric at radial, DP, and PT Lungs: no acute respiratory distress; symmetrical chest wall expansion; clear breath sounds across all lung culver w/o adventitious sounds; no wheezing ABD: Soft, NTP; BS present; no rebound/guarding; no distention MSK: no tics or fasciculations; no edema noted in the LEs b/l, nonerythematous Neuro: A&Ox3; normal mood and affect; fluent speech; no focal deficits; sensation grossly intact in the LEs b/l Results & Data Results & Data Vital Signs (Past 12 Hours) Vital Signs Temp Pulse Resp BP Pulse Ox O2 Del Method 02/29/24 15:40 126 H 12 02/29/24 15:30 122/67 02/29/24 15:30 86 14 02/29/24 15:20 107 H 16 02/29/24 15:10 80 13 02/29/24 15:00 84 13 02/29/24 14:52 95 H 02/29/24 14:50 76 20 02/29/24 14:40 84 16 97 02/29/24 14:30 123/68 02/29/24 14:30 79 14 96 02/29/24 14:20 82 22 97 02/29/24 14:10 111 H 99 02/29/24 14:08 101/56 L 02/29/24 14:08 83 18 99 02/29/24 14:06 75 16 99 02/29/24 13:50 77 21 97 02/29/24 13:40 75 16 96 02/29/24 13:30 82 14 98 02/29/24 13:20 73 17 97 02/29/24 13:15 73 02/29/24 13:10 79 98 02/29/24 13:08 74 19 100 02/29/24 13:00 36.6 C 73 17 165/74 H 98 Room Air Laboratory Results Abnormal lab results 02/29/24 02/29/24 Range/Units 13:16 14:18 RDW Coeff of Luther 15.0 H (11.5-14.5) % Neut # (Auto) 6.75 H (1.40-6.50) K/uL Lymph # (Auto) 1.19 L (1.20-3.40) K/uL Sodium 133 L (136-145) mmol/L Chloride 93 L (98-107) mmol/L Anion Gap 15 H (3-11) BUN 139 H (6-23) mg/dl Creatinine 2.18 H (0.6-1.2) mg/dl BUN/Creatinine Ratio 63.8 H (10-20) Glucose 227 H (70-99(Fasting)) mg/dl POC Glucose 223 H (70-99) mg/dl Magnesium 3.3 H (1.7-2.4) mg/dl AST 47 H (13-39) U/L Troponin I High Sens 843.3 H* (0-14) pg/ml Lipase 235 H (11-82) U/L TSH 4.611 H (0.300-4.500) uIu/ml Diagnostic Findings Cervical Spine CT 02/29/24 13:[address] DOSE: 1181.38 mGy.cm HISTORY: trauma TECHNIQUE: Multiaxial CT images of the cervical spine were performed and reformatted in the sagittal and coronal plane without the use of contrast. A dose lowering technique was utilized adhering to the principles of ALARA. COMPARISON: None. FINDINGS: No fractures. No subluxation. Prevertebral soft tissues and the C1-C2 interval are intact. No pneumothorax. Severe disc space narrowing and endplate osteophytes from C3 through C7. IMPRESSION: No fractures within the cervical spine. ACT 112: Negative or not required by law. Electronically signed by: Tamir Sofia M.D. 02/29/2024 2:16 PM Chest X-Ray 02/29/24 13:48 XR chest 1V not portable CLINICAL HISTORY: trauma COMPARISON STUDY: Chest radiograph February 21, 2024. FINDINGS: Lung volumes are normal. Lungs are clear. There is no pneumothorax or pleural effusion. Cardiac size is normal. Mediastinal contours are normal. There is no evidence for pulmonary edema. IMPRESSION: No acute cardiopulmonary findings. No change in appearance of the chest. ACT 112: Negative or not required by law. Electronically signed by: Tej Forte M.D. 02/29/2024 3:[address] 02/29/24 13:[address] WITHOUT CONTRAST CLINICAL HISTORY: trauma COMPARISON STUDY: Head CT July 28, 2013. TECHNIQUE: A maxillofacial CT was performed without IV contrast. Coronal and sagittal reformats were viewed. Automated exposure control was utilized for the study. A dose lowering technique was utilized adhering to the principles of ALARA. FINDINGS: Globes are intact. There is no retrobulbar hematoma. Alignment of the temporomandibular joints is anatomic. No skull base fracture. Orbital floors are intact. Suspected nasal contusion is noted. There is a minimally displaced right nasal bone fracture. IMPRESSION: Minimally displaced right nasal bone fracture, likely acute. Nasal contusion. No additional facial fractures. ACT 112: Negative or not required by law. Electronically signed by: Tej Forte M.D. 02/29/2024 2:[address] 02/29/24 13:48 CT head/brain wo con CLINICAL HISTORY: 78 years-old Female with trauma. Acute head trauma TECHNIQUE: Multiple axial CT images of the head were obtained without contrast. A dose lowering technique was utilized adhering to the principles of ALARA. COMPARISON: 07/28/2013. FINDINGS: No acute intracranial hemorrhage, midline shift, intracranial mass, hydrocephalus, territorial ischemia or abnormal extra-axial collection. Involut ional changes with chronic microvascular ischemic disease. There is a 2.4 cm hypodense focus noted within the posterior mid left cerebellum on image 6 series 2 which is new from prior. The calvarium is intact. The paranasal sinuses, mastoid air cells, and middle ear cavities are clear. IMPRESSION: 1. No acute posttraumatic intracranial abnormality or calvarial fracture. 2. 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 ACT 112: Negative or not required by law. The above report was generated using voice recognition software. It may contain grammatical, syntax or spelling errors. Electronically signed by: Elbert Mccormack M.D. 02/29/2024 2:18 PM Hip/Pelvis X-Ray 02/29/24 13:48 XR hip LT 2V w pelvis CLINICAL HISTORY: trauma. Left hip pain. COMPARISON STUDY: Left femur 05/20/2018. FINDINGS: No fracture or dislocation within the pelvis or hips. The sacrum is intact. Mild degenerative changes within the bilateral hips. Soft tissues are unremarkable. IMPRESSION: No fracture or dislocation within the pelvis or hips. ACT 112: Negative or not required by law. Electronically signed by: Tamir Sofia M.D. 02/29/2024 3:58 PM Wrist X-Ray 02/29/24 13:48 XR wrist LT 2V CLINICAL HISTORY: trauma. Fall. Wrist pain. COMPARISON STUDY: None. FINDINGS: The bones are osteopenic. No acute fracture or dislocation within the left wrist. There is mild soft tissue swelling. Mild degenerative changes within the left wrist. IMPRESSION: No acute fracture or dislocation within the left wrist. ACT 112: Negative or not required by law. Electronically signed by: Tamir Sofia M.D. 02/29/2024 3:20 PM Wrist X-Ray 02/29/24 13:48 XR wrist RT 2V HISTORY: 78 years-old Female trauma acute right wrist pain status post fall COMPARISON: None TECHNIQUE: 2 views the right wrist FINDINGS: Demineralized appearance of the bones. [id number]-[id number] osteoarthritis. No acute fracture, dislocation, osseous erosion or opaque foreign body. IMPRESSION: No acute fracture. ACT 112: Negative or not required by law. The above report was generated using voice recognition software. It may contain grammatical, syntax or spelling errors. Electronically signed by: Elbert Mccormack M.D. 02/29/2024 3:10 PM ECG Additional Comments: ECG revealed sinus rhythm with PACs at 77 bpm; QTc 556 Caution use of QT prolonging agents Code Status & VTE Plan Code Status DNR/DNI VTE Prophylaxis Plan VTE Prophylaxis will be ordered: Yes Supervising Physician Co-Signing Physician Notes Patient seen and examined, chart reviewed, case discussed with Tamir Valdivia and I agree with the assessment and plan as above except as otherwise noted Labs and images reviewed Leeann is a 78-year-old female with a history of type II DM, hypothyroidism, cardiomyopathy without obstruction, CKD 3 who has had multiple falls on standing.Woman seen at the bedside. Nondistressed and feels well at bedside. Reports that her chest hurts when she presses on it and falls but has not had no exertional chest pain, dyspnea, or chest pressure. She reports her episodes of passing out have all been after she stood up but she does not get very much warning and passes out within a few seconds. She has been trying to drink water but has not been eating is drinking much and has been taking her medications as prescribed. Patient lives alone is at high risk for occasions of falls. Patient reports that she has not been able to eat very much because she passes out when she gets up to go and make food no headache. CT series without acute fractures. CT also shows age-indeterminate left cerebellar infarct. No history of A-fib. No focal neurologic deficits on exam. Denies numbness, tingling, vision change. MRI/MRA and carotid ultrasound ordered for CVA evaluationEKG is without acute ischemic change. MM are tacky, clinically volume depleted. Suspect that she is having stasis worsened with volume contraction, IV FM have been added with improvement on reassessment. Troponin is elevated at 843, repeat is slightly downtrending. No chest pain or evidence of ACS. Suspect demand with severe volume depletion. +sm on assessment. Lungs clear. Patient is also with hocum and w/ hx of mild outflow obstruction, with volume contraction + tachycardia after standing may be inducing worsened obstruction leading to syncope. Fluids ordered. BB continued, no hypotension pt with intermittent hypertension --> BB increased to 50mg BID. Diuretic has been held. Agree with assessment and management above. Asymptomatic at rest PG Care Time/CCT Total # of Minutes Spent Total Time Spent with Patient: Total time spent is greater than 50% in coordination of care (as documented) at patient's floor/unit and/or counseling patient: [place]oding [place] [address] INT INP/OBS CARE 3/75MIN Patient Type Established History Comprehensive Exam Comprehensive Medical Decision Making High Complexity Diagnoses Recurrent falls R29.6 CVA (cerebral vascular accident) I63.9 Dehydration E86.0 SUNNY (acute kidney injury) N17.9 Elevated troponin R79.89 Hypermagnesemia E83.41 Type 2 diabetes mellitus with obesity E11.69; E66.9 Hypertrophic obstructive cardiomyopathy (HOCM) I42.1 Labile hypertension R09.89
[2024-02-29] MEDS ORDERED: GLUCAGON FOR INJ 1 MG VIAL SQ PRN (19:01)
[2024-02-29] MEDS ORDERED: GLUCOSE 40% GEL 15 GM TUBE PO PRN (19:01)
[2024-02-29] MEDS ORDERED: GLUCOSE 10 TAB/TUBE PO PRN (19:01)
[2024-02-29] MEDS ORDERED: DEXTROSE 50% 50 ML SYRINGE IV PRN (19:01)
[2024-02-29] MEDS ORDERED: CARBOHYDRATES FOR HYPOGLYCEMIA PO PRN (19:01)
[2024-02-29] MEDS: ACETAMINOPHEN 325 MG TAB PO PRN (20:58)
[2024-02-29] MEDS: hydrALAZINE HCL 25 MG TAB PO SCH (20:59)
[2024-02-29] MEDS: METOPROLOL TARTRATE 25 MG TAB PO SCH (20:59)
[2024-02-29] MEDS: INSULIN ASPART PER UNIT CHARGE SC SCH (21:05)
[2024-02-29] MEDS: LIDOCAINE 5% 1 PATCH TD ONE (23:29)
[2024-03-01] MEDS: NYSTATIN POWDER 15GM BTL EXT PRN (04:55)
[2024-03-01] MEDS: LEVOTHYROXINE SODIUM 88 MCG TABLET PO SCH (05:53)
[2024-03-01 06:29] LABS: Basophils # (auto) 0.01 K/uL (0.00-0.20); Basophils % (auto) 0.2 %; Eosinophils # (auto) 0.08 K/uL (0.00-0.50); Eosinophils % (auto) 1.2 %; Hematocrit (blood only) 35.6 % (37.0-47.0); Hemoglobin 12.1 g/dl (12.0-16.0); Immature Granulocytes # (auto) 0.02 K/uL (0.01-0.20); Immature Granulocytes % (auto) 0.3 %; Lymphocytes # (auto) 1.29 K/uL (1.20-3.40); Lymphocytes % (auto) 20.1 %; Mean Corpuscular Hemoglobin 27.3 pg (25.0-34.0); Mean Corpuscular Volume 80.4 fL (80.0-100.0); Mean Platelet Volume 10.9 fL (9.4-12.4); Monocytes # (auto) 0.45 K/uL (0.11-0.59); Neutrophils # (auto) 4.56 K/uL (1.40-6.50); Neutrophils % (auto) 71.2 %; Platelet Count 98 K/uL (130-400); RDW Coefficient of Variation 14.6 % (11.5-14.5); RDW Standard Deviation 42.3 fL (36.4-46.3); Red Blood Count 4.43 M/uL (4.20-5.40); White Blood Count 6.41 K/ul (4.8-10.8)
[2024-03-01 06:50] LABS: BUN Creatinine Ratio 61.8 (10-20); Calcium 7.9 mg/dl (8.6-10.3); Creatinine Clr Calc Pharmacy 25.7 ml/min; Est GFR (African American) 32.7 ml/min; Est GFR (Non-African American) 28.2 ml/min; Magnesium 2.8 mg/dl (1.7-2.4); Potassium 3.2 mmol/L (3.5-5.1)
[2024-03-01 06:56] LABS: Troponin I High Sensitivity 765.1 pg/ml (0-14)
[2024-03-01] MEDS: ASPIRIN 81 MG ECTAB PO SCH (09:40)
[2024-03-01] MEDS: POTASSIUM CHLORIDE CRTAB 20 MEQ TABCR PO STA (09:40)
[2024-03-01] MEDS: SERTRALINE HCL 100 MG TABLET PO SCH (09:41)
--- NOTE | 2024-03-01 09:43 | Ultrasound Report ---
ULTRASOUND OF THE CAROTID ARTERIES CLINICAL HISTORY: Age indeterminant L cerebellar infarct TECHNIQUE: Real-time, grayscale, and color Doppler sonography of the bilateral carotid arteries is pe rformed. Images are reviewed in the transverse and longitudinal planes. COMPARISON: None available at the time of this dictation. FINDINGS: The carotid arteries are patent bilaterally and demonstrate antegrade flow. There is moderate atheros clerotic plaque on the right and moderate atherosclerotic plaque on the left. Normal doppler arterial waveforms are seen throughout. Velocity measurements are listed below. Common carotid peak systolic velocity (cm/sec): RIGHT: 62 LEFT: 73 ICA peak systolic velocity (cm/sec): RIGHT: 92 LEFT: 59 ICA/CC peak systolic ratio: RIGHT: 1.5 LEFT: 0.8 Antegrade flow was shown in the vertebral arteries. The external carotid arteries are patent. IMPRESSION: 1. There is no sonographic evidence of hemodynamically significant stenosis in the right or left car otid arterial system. 2. Antegrade flow is shown in the vertebral arteries. Society of Radiologists in Ultrasound consensus guidelines: Normal: ICA PSV is <125 cm/sec and no plaque or intimal thickening is visible sonographically additional criteria include ICA/CCA PSV ratio <2.0 and ICA EDV <40 cm/sec <50% ICA stenosis: ICA PSV is <125 cm/sec and plaque or intimal thickening is visible sonographically additional criteria include ICA/CCA PSV ratio <2.0 and ICA EDV <40 cm/sec 50-69% ICA stenosis: ICA PSV is 125-230 cm/sec and plaque is visible sonographically additional criteria include ICA/CCA PSV ratio of 2.0-4.0 and ICA EDV of 40-100 cm/sec ?70% ICA stenosis but less than near occlusion: ICA PSV is >230 cm/sec and visible plaque and luminal narrowing are seen at gaming-scale and color Dopp ler ultrasound (the higher the Doppler parameters lie above the threshold of 230 cm/sec, the greater the likelihood of severe disease) additional criteria include ICA/CCA PSV ratio >4 and ICA EDV >100 cm/sec ACT 112: Negative or not required by law. Electronically signed by: Faraz Mahmood M.D. 03/01/2024 9:41 AM
--- NOTE | 2024-03-01 17:15 | Hospitalist Progress Note ---
Date of Service March 01, 2024 Assessment & Plan (1) Recurrent falls: Plan: Reports 7-8 falls at home since discharge on 02/24, lives alone Base CT revealed minimally displaced right nasal bone fracture with nasal contusion. Head CT revealed age-indeterminate left cerebellar infarct (new from 2013 comparison); see #2 (CVA) Suspect related to orthostatic hypotension In the setting for HOCM, concern for outflow obstruction with concomitant dehydration IVF resuscitation with LR at 100mL/hr x 3 PT/OT consulted Lipase elevated on admission, patient without abdominal pain, will recheck in AM low platelets - chronic issue for patient, hx of Hep C AM BMP, CBC, Mag (2) CVA (cerebral vascular accident): Plan: Head CT revealed age-indeterminate left cerebellar infarct (new from 2012 comparison) Cartoid dopplers without significant stenosis Brain MRI/MRA ordered but not completed due to patient preference, if symptoms do not improve with treated her blood pressures can reevaluated Continue ASA 81mg (3) Labile hypertension: Plan: Hx of labile hypertension - last admission (02/15-02/21) Diltazem was changed to metoprolol and prn PO clonidine changed to scheduled PO hydralazine - patient was using clonidine patch, however one present currently is from prior admission (placed 02/18) - removed today and will continue to hold Hold Valsartan, hydralzine, clonidine and prn triamterene-HCTZ Continue metoprolol (4) SUNNY (acute kidney injury): Plan: BUN 139, creatinine 2.18 (baseline 1.2), eGFR 20.1 Avoid nephrotoxic agents Hold triamterene-HCTZ (this is prn for patient at home) Hold valsartan (5) Elevated troponin: Plan: Troponin 843.3-->842.6 ECG sinus rhythm with PACs Patient denies CP Troponin overall downtrending (6) Hypermagnesemia: Plan: Magnesium 3.3 on arrival Fluids as above 2.8 this morning, recheck in AM (7) Type 2 diabetes mellitus with obesity: Plan: Last A1c 7.1% on 12/23/2023 SSI while inpatient Will defer Lantus in the setting of acute SUNNY BSG ACHS (8) Hypertrophic obstructive cardiomyopathy (HOCM): Plan: Likely a contributing factor in recurrent syncope Monitor hydration status Plan Disposition: continued inpatient stay VTE PPx: SCDs Admission and Anticipated Discharge Date Admission Date: February 29, 2024 Supervising Physician Co-Signing Physician Notes Attending Attestation - Chart reviewed, care plan d/w TK Patel. I agree with the varghese component of her documentation. Michel Gonzales MD Subjective patient lying in bed, seen shortly after working with OT Had episode of signifcant orthostatic hypotension At rest she feels fine. reports when she has been passing out she really does not get much warning. Pain in the sterum related to breathing consitent with her recent falls Review of Systems Review of Systems: All systems reviewed & are unremarkable except as noted in Subjective Physical Exam Physical Exam: General: NAD, VS as above HEENT: wound over nose healing Resp: normal respiratory effort, lungs clear to auscultation CV: RRR, no murmur, Abd: normal bowel sounds, non tender, no hepatosplenomegaly Extremities: Moves all extremities, no edema Neuro: A&O x3, Results & Data Results & Data Vital Signs (Past 12 Hours) Vital Signs Temp Pulse Pulse Resp BP Pulse Ox O2 Del Method 03/01/24 15:45 53 L 03/01/24 14:44 36.7 C 52 L 19 129/69 97 Room Air 03/01/24 11:30 36.5 C 55 L 20 118/55 L 95 Room Air 03/01/24 09:00 53 L 03/01/24 07:24 36.4 C L 82 17 153/72 H 98 Room Air Laboratory Results CBC, chemistry, troponin, lipase reviewed Diagnostic Findings Carotid US reviewed PG Care Time/CCT Total # of Minutes Spent Total Time Spent with Patient: Total time spent is greater than 50% in coordination of care (as documented) at patient's floor/unit and/or counseling patient: Coding Level of Care Code 44265 SUB INP/OBS CARE 3/50MIN Diagnoses Recurrent falls R29.6 CVA (cerebral vascular accident) I63.9 Labile hypertension R09.89 SUNNY (acute kidney injury) N17.9 Elevated troponin R79.89 Hypermagnesemia E83.41 Type 2 diabetes mellitus with obesity E11.69; E66.9 Hypertrophic obstructive cardiomyopathy (HOCM) I42.1
--- NOTE | 2024-03-01 17:31 | XCELERA ---
[id number]___[id number]
[2024-03-01] MEDS: ONDANSETRON INJ 2 MG/ML 2 ML VIAL IV PRN (21:03)
--- NOTE | 2024-03-01 23:17 | Electrocardiogram Report ---
Test Reason : Blood Pressure : / mmHG Vent. Rate : 077 BPM Atrial Rate : 077 BPM P-R Int : 140 ms QRS Dur : 104 ms QT Int : 492 ms P-R-T Axes : 072 -31 134 degrees QTc Int : 556 ms Sinus rhythm with Premature atrial complexes Possible Left atrial enlargement Left axis deviation Left ventricular hypertrophy with repolarization abnormality Prolonged QT Abnormal ECG When compared with ECG of 16-FEB-2024 14:38, QT has lengthened Confirmed by Jann Jacobs ([id number]) on 03/01/2024 11:17:16 PM Referred By: REFERRED SELF Confirmed By:Jann Jacobs
[2024-03-02] MEDS: PROCHLORPERAZINE 5 MG in SYRINGE 4 ML IV ONE (00:03)
[2024-03-02] MEDS: ACETAMINOPHEN 1,000 MG/100 ML VIAL IV ONE (00:33)
[2024-03-02 06:39] LABS: BUN Creatinine Ratio 52.8 (10-20); Calcium 8.1 mg/dl (8.6-10.3); Creatinine Clr Calc Pharmacy 34.2 ml/min; Est GFR (African American) 41.5 ml/min; Est GFR (Non-African American) 35.8 ml/min; Magnesium 2.6 mg/dl (1.7-2.4)
[2024-03-02 06:43] LABS: Basophils # (auto) 0.01 K/uL (0.00-0.20); Basophils % (auto) 0.1 %; Eosinophils % (auto) 1.5 %; Hematocrit (blood only) 38.1 % (37.0-47.0); Hemoglobin 12.2 g/dl (12.0-16.0); Immature Granulocytes # (auto) 0.02 K/uL (0.01-0.20); Immature Granulocytes % (auto) 0.3 %; Lymphocytes # (auto) 1.17 K/uL (1.20-3.40); Lymphocytes % (auto) 17.2 %; Mean Corpuscular Hemoglobin 27.1 pg (25.0-34.0); Mean Corpuscular Volume 84.5 fL (80.0-100.0); Mean Platelet Volume 10.3 fL (9.4-12.4); Monocytes # (auto) 0.45 K/uL (0.11-0.59); Monocytes % (auto) 6.6 %; Neutrophils # (auto) 5.05 K/uL (1.40-6.50); Neutrophils % (auto) 74.3 %; Platelet Count 83 K/uL (130-400); RDW Standard Deviation 45.3 fL (36.4-46.3); Red Blood Count 4.51 M/uL (4.20-5.40)
[2024-03-02] MEDS: LACTATED RINGER'S 1,000 ML IV SCH (13:33)
[2024-03-02] MEDS: LANTUS PER UNIT CHARGE SQ ONE (15:42)
--- NOTE | 2024-03-02 16:54 | Hospitalist Progress Note ---
Date of Service March 02, 2024 Assessment & Plan (1) Recurrent falls: Plan: Reports 7-8 falls at home since discharge on 02/24, lives alone Base CT revealed minimally displaced right nasal bone fracture with nasal contusion. Head CT revealed age-indeterminate left cerebellar infarct (new from 2013 comparison); see #2 (CVA) Suspect related to orthostatic hypotension In the setting for HOCM, concern for outflow obstruction with concomitant dehydration Received IVF x3 03/01 PT/OT consulted Lipase elevated on admission, patient without abdominal pain, recheck improving low platelets - chronic issue for patient, hx of Hep C Patient remains orthostatic 03/02 - Additional 1L LR given - metoprolol dose decreased (2) CVA (cerebral vascular accident): Plan: Head CT revealed age-indeterminate left cerebellar infarct (new from 2012 comparison) Cartoid dopplers without significant stenosis Brain MRI/MRA ordered but not completed due to patient preference, if symptoms do not improve with treated her blood pressures can reevaluated Continue ASA 81mg (3) Labile hypertension: Plan: Hx of labile hypertension - last admission (02/15-02/21) Diltazem was changed to metoprolol and prn PO clonidine changed to scheduled PO hydralazine - patient was using clonidine patch, however one present currently is from prior admission (placed 02/18) - removed today and will continue to hold Hold Valsartan, hydralzine, clonidine and prn triamterene-HCTZ Metoprolol decreased to 12.5mg BID (4) SUNNY (acute kidney injury): Plan: BUN 139, creatinine 2.18 (baseline 1.2), eGFR 20.1 Avoid nephrotoxic agents Hold triamterene-HCTZ (this is prn for patient at home) Hold valsartan Improving, recheck AM BMP (5) Elevated troponin: Plan: Type 2 [place] due to demand ischemia Troponin 843.3-->842.6 --> now 330 ECG sinus rhythm with PACs Patient denies CP Troponin overall downtrending (6) Hypermagnesemia: Plan: Magnesium 3.3 on arrival Fluids as above Downtrending now 2.6 continue to trend (7) Type 2 diabetes mellitus with obesity: Plan: Last A1c 7.1% on 12/23/2023 Home regiment is insulin 70/30 - 7 units BID, and metfomin 500mg BID SSI while inpatient - CF and CR tightened / Lantus 4 units BID BSG ACHS Hyperglycemic / at lunch in absence of lantus, give 8 units this afternoon and tightened CF and CR (8) Hypertrophic obstructive cardiomyopathy (HOCM): Plan: Likely a contributing factor in recurrent syncope Monitor hydration status Plan Disposition: continued inpatient stay VTE PPx: SCDs Admission and Anticipated Discharge Date Admission Date: February 29, 2024 Supervising Physician Co-Signing Physician Notes Attending Attestation - Chart reviewed, care plan d/w TK Patel. I agree with the varghese component of her documentation. Echo findings noted (LVOT obstruction - worsening gradient in comparison to prior Echo). Cont gentle hydration. SUNNY improving. Cont to hold all BP meds except for metoprolol (due to LVOT obstruction). Michel Gonzales MD Subjective Patient seen during lunch. reports that she just has not had much of an appetite for lunch, but at well from breakfast. fell early this morning when she was trying to go to the bathroom. did not hit her head. Still very orthostatic when standing, RN reports very unsteady SR PVCs in 50s Review of Systems Review of Systems: All systems reviewed & are unremarkable except as noted in Subjective Physical Exam Physical Exam: General: NAD, VS as above HEENT: wound over nose healing Resp: normal respiratory effort, lungs clear to auscultation CV: RRR, no murmur, Abd: normal bowel sounds, non tender, no hepatosplenomegaly Back: dressing in place, bruise right lower side, non tender to palpation Extremities: Moves all extremities, no edema Neuro: A&O x3, Results & Data Results & Data Vital Signs (Past 12 Hours) Vital Signs Temp Pulse Resp BP Pulse Ox O2 Del Method 03/02/24 15:55 36.9 C 54 L 17 152/73 H 95 Room Air 03/02/24 11:44 36.7 C 50 L 18 149/76 H 93 Room Air 03/02/24 08:00 Room Air 03/02/24 07:40 36.6 C 54 L 19 154/72 H 93 Room Air 03/02/24 05:45 36.6 C 60 18 146/68 H 94 Room Air Laboratory Results CBC, chemistry, lipase and mag reviewed PG Care Time/CCT Total # of Minutes Spent Total Time Spent with Patient: Total time spent is greater than 50% in coordination of care (as documented) at patient's floor/unit and/or counseling patient: Coding Level of Care Code 46478 SUB INP/OBS CARE 3/50MIN Diagnoses Recurrent falls R29.6 CVA (cerebral vascular accident) I63.9 Labile hypertension R09.89 SUNNY (acute kidney injury) N17.9 Elevated troponin R79.89 Hypermagnesemia E83.41 Type 2 diabetes mellitus with obesity E11.69; E66.9 Hypertrophic obstructive cardiomyopathy (HOCM) I42.1
[2024-03-02] MEDS: METOPROLOL TARTRATE 25 MG TAB PO SCH (20:38)
[2024-03-02] MEDS ORDERED: LANTUS PER UNIT CHARGE SQ SCH (21:00)
[2024-03-03 06:16] LABS: BUN Creatinine Ratio 39.7 (10-20); Calcium 8.4 mg/dl (8.6-10.3); Creatinine Clr Calc Pharmacy 38.2 ml/min; Est GFR (African American) 47.9 ml/min; Est GFR (Non-African American) 41.4 ml/min; Magnesium 2.3 mg/dl (1.7-2.4); Potassium 4.2 mmol/L (3.5-5.1)
[2024-03-03] MEDS: LANTUS PER UNIT CHARGE SQ SCH (09:00)
--- NOTE | 2024-03-03 09:13 | Hospitalist Progress Note ---
Date of Service March 03, 2024 Assessment & Plan (1) Recurrent falls: Plan: Reports 7-8 falls at home since discharge on 02/24, lives alone Base CT revealed minimally displaced right nasal bone fracture with nasal contusion. Head CT revealed age-indeterminate left cerebellar infarct (new from 2012 comparison); see #2 (CVA) Suspect related to orthostatic hypotension In the setting for HOCM, concern for outflow obstruction with concomitant dehydration Received IVF x3 03/01 PT/OT consulted - recommend that if she is discharged home she should have 24 hour supervison and PT 3X weekly for at least 2 weeks Lipase elevated on admission, patient without abdominal pain, recheck improving low platelets - chronic issue for patient, hx of Hep C Patient remains orthostatic - Patient is 6.2 liters positive this admission - metoprolol dose decreased to 12.5mg BID. Will increase this back to 25mg PO BID in hopes that filling time increases and cardiac output improves -Check a cortisol level -Check repeat EKG -Check repeat troponin level -Consult cardiology - Dr. Castano covering Tuesday03/04/2024. [place] text sent to him. Appreciate his input (2) CVA (cerebral vascular accident): Plan: Head CT revealed age-indeterminate left cerebellar infarct (new from 2012 comparison) Cartoid dopplers without significant stenosis Brain MRI/MRA ordered but not completed due to patient preference, if symptoms do not improve with treated her blood pressures can reevaluated Continue ASA 81mg (3) Labile hypertension: Plan: Hx of labile hypertension - last admission (02/15-02/21) Diltazem was changed to metoprolol and prn PO clonidine changed to scheduled PO hydralazine - patient was using clonidine patch, however one present currently is from prior admission (placed 02/18) - patch removed - continue to hold Hold Valsartan, hydralzine, clonidine and prn triamterene-HCTZ Incraese Metoprolol tartrate back to 25mg BID as defined above in #1 (4) SUNNY (acute kidney injury): Plan: BUN 139, creatinine 2.18 (baseline 1.2), eGFR 20.1 Avoid nephrotoxic agents Hold triamterene-HCTZ (this is prn for patient at home) Hold valsartan Improving, but still with elevated BUN and Frozen [employer]. (5) Elevated troponin: Plan: Type 2 [place] due to demand ischemia Troponin 843.3-->842.6 --> now 330 ECG sinus rhythm with PACs Patient denies CP Troponin overall downtrending. Repeat today Check repeat ECG as patient is still orthostatic Consult cardiology (6) Hypermagnesemia: Plan: Magnesium 3.3 on arrival Fluids as above Downtrending now 2.3 continue to trend - no intervention needed (7) Type 2 diabetes mellitus with obesity: Plan: Last A1c 7.1% on 12/23/2023 Home regiment is insulin 70/30 - 7 units BID, and metfomin 500mg BID SSI while inpatient - CF and CR tightened 03/02 Lantus 4 units BID BSG ACHS Hyperglycemic 03/02 at lunch in absence of lantus, give 8 units this afternoon and tightened CF and CR (8) Hypertrophic obstructive cardiomyopathy (HOCM): Plan: Likely a contributing factor in recurrent syncope Monitor hydration status I&Os positive 6.2 L this admission Consult cardiology. May benefit increase of beta alex to increase fill time. Increased back to home dose of 25mg PO BID pending comment from cardiology Check cortisol level. Repeat troponin to trend Plan Disposition: continued inpatient stay VTE PPx: SCDs Admission and Anticipated Discharge Date Admission Date: February 29, 2024 Supervising Physician Co-Signing Physician Notes Attending Attestation - Chart reviewed, care plan d/w TK Green. I agree w/ the varghese components of his documentation. Agree with cardiology consultation for LVOT obstruction. Check cortisol level given ongoing orthostasis despite supportive care, IV fluids, holding BP meds, etc. Michel Gonzales MD Subjective Attending: Dr. Gonzales 78-year-old female admitted 02/29/2024 with recurrent falls. History of with new age-indeterminate left cerebellar infarct since previous study 2012. Carotid Dopplers are negative for significant stenosis. Brain MRI/MRA was ordered but pleated due to patient preference. Hyperglycemia improved. Last 3 readings were 160, 189, 233. Hemoglobin A1c on 12/23/2023 was 7.1 Acute elevation of troponin on admission of 843.3 most likely ischemic demand. Consistently trending downward. Most recent troponin 333 pg/ml. LVOT obstruction with peak velocity of 3.2M/S and peak gradient of 41 mmHg. This is new from echocardiogram of 07/29/2023. ECG on admission sinus rhythm with PACs. Prolonged QtC 556 ms. Repeat ECG ordered for 03/03/2024 Per discussion with nursing, patient still continues to have considerable orthostasis. Patient denies any chest pain or tightness. No fever. No nausea or vomiting. Continues with lightheadedness and syncope/presyncope. Review of Systems 2 Review of Systems: A total of 10 systems was reviewed and is negative other than as listed in the HPI Physical Exam 2 Physical Exam: GENERAL : No acute distress. Pleasant and talkative EYES: No icterus, gaze conjugate NOSE: No evidence of epistaxis MOUTH: No lesions or candidiasis NECK: Supple LUNGS: CTA B/L, no wheezes, rales or rhonchi HEART: Regular, rate controlled ABDOMEN: Soft, NT, ND, BS Present EXTREMITIES: No LE edema, pedal pulses intact NEURO: A&OX3 Results & Data Results & Data Vital Signs (Past 12 Hours) Vital Signs Temp Pulse Pulse Resp BP Pulse Ox O2 Del Method 03/03/24 08:09 37.4 C 80 18 166/71 H 93 Room Air 03/03/24 03:01 36.6 C 66 17 141/74 H 93 Room Air 03/02/24 23:19 36.6 C 58 L 17 129/69 96 Room Air 03/02/24 23:11 59 L Laboratory Results 03/02/24 05:48 03/03/24 05:21 ECG Additional Comments: L PG Care Time/CCT Total # of Minutes Spent Total Time Spent with Patient: Total time spent is greater than 50% in coordination of care (as documented) at patient's floor/unit and/or counseling patient: Coding Level of Care Code 08632 SUB INP/OBS CARE 2/35MIN Diagnoses Recurrent falls R29.6 CVA (cerebral vascular accident) I63.9 Labile hypertension R09.89 SUNNY (acute kidney injury) N17.9 Elevated troponin R79.89 Hypermagnesemia E83.41 Type 2 diabetes mellitus with obesity E11.69; E66.9 Hypertrophic obstructive cardiomyopathy (HOCM) I42.1 Time Spent (min) 35
[2024-03-03] MEDS: METOPROLOL TARTRATE 25 MG TAB PO SCH (20:13)
[2024-03-04 07:00] LABS: Hematocrit (blood only) 36.9 % (37.0-47.0); Hemoglobin 11.7 g/dl (12.0-16.0); Mean Corpuscular Hemoglobin 27.3 pg (25.0-34.0); Mean Corpuscular Hgb Conc 31.7 g/dL (32.0-36.0); Mean Corpuscular Volume 86.2 fL (80.0-100.0); Mean Platelet Volume 10.7 fL (9.4-12.4); Platelet Count 54 K/uL (130-400); RDW Standard Deviation 46.9 fL (36.4-46.3); Red Blood Count 4.28 M/uL (4.20-5.40); White Blood Count 5.01 K/ul (4.8-10.8)
[2024-03-04 07:28] LABS: BUN Creatinine Ratio 32.1 (10-20); Calcium 8.1 mg/dl (8.6-10.3); Creatinine Clr Calc Pharmacy 45.7 ml/min; Est GFR (African American) 59.1 ml/min
--- NOTE | 2024-03-04 10:01 | Cardiology Consultation ---
Date of Consultation March 04, 2024 Assessment & Plan (1) Syncope: (2) Left ventricular outflow tract obstruction: (3) Elevated troponin: (4) Labile hypertension: (5) Mild aortic stenosis: (6) Mitral regurgitation: (7) Orthostatic hypotension: Plan 1. Syncope: She had positional syncope at home. This resulted in several falls and minor injuries. Based on her evaluation of the hospitalist seems likely related to hypotension. She is not felt to have classic hypertrophic cardiomyopathy. As such, not at risk for malignant ventricular arrhythmias and I do not think based on the current evaluation we need to pursue treatment for VT or VF. 2. Orthostatic hypotension: Her vital signs and curious in that they demonstrate a drop in systolic blood pressure without a notable increase in heart rate. This would be more consistent with autonomic dysfunction the and an obstructive cardiomyopathy. Cortisol level was normal this morning. I would suggest obtaining a norepinephrine level tomorrow morning. She may be a reasonable candidate for droxidopa. Lability and blood pressure and hypertension may compromise adequate treatment. 3. Obstructive cardiomyopathy: She has been noted to have an outflow tract gradient in the past. Perhaps slightly worse on her current echocardiogram. He would seem odd to have experienced such a dramatic development of symptoms in such a short time frame. In fact, the outflow tract gradient is fairly low at rest. Curiously, she seemed to feel better on diltiazem and would be reasonable to consider returning her to diltiazem over metoprolol. For persistent and refractory symptoms could consider an invasive evaluation and given the quality of the echocardiogram a transesophageal study as well. 4. Hypertension: Quite labile in the past. Difficult to treat given her current orthostatic hypotension. If she is feeling better today we could continue her current regimen and add fludrocortisone. Hydralazine is also upon vaso dilated which may be playing a role in some of her current symptoms. 5. Aortic stenosis: Mild. Not a current clinical concern. 6. Mitral regurgitation: Not seen on the way current study. This can be followed over time. History of Present Illness Reason for Consultation: Hypotension, syncope Requesting Physician: Norma Attending Physician: Michel Gonzales MD History of Present Illness The patient is a 78-year-old woman with a history of obstructive cardiomyopathy, hypertension, aortic stenosis and mitral regurgitation who was admitted to the hospital with frequent episodes of syncope and weakness peer The patient had been admitted at the end of January with upper respiratory symptoms. She was felt to have an element of pulmonary vascular congestion, noted to have labile hypertension and possibly a viral bronchitis. She underwent some mild diuresis as well to adjustment in her medical therapy and was discharged home on February 24. The patient states that immediately upon returning home she had significant difficulty ambulating around her residence. She states that she would get up from a seated position walk a short distance and fall to the ground. Seems that she had episodes where she lost consciousness. On occasion she would be s tanding still and this would happen as well. She states that she had trouble eating simply because she was too weak to get to the refrigerator or open the refrigerator on occasion. She denies significant breathing difficulty. She was not overtly aware of dizziness or lightheadedness. She denies a sense of palpitation. No chest pain. It seems that leading up to her prior admission she was performing her usual activity. She is limited by significant orthopedic disease. However, she has not had a history of significant dizziness, lightheadedness or limiting dyspnea. She did report ambulating to the bathroom today on her own power (accompanied) without significant dizziness. No limiting dyspnea. Allergies Allergy/AdvReac Type Severity Reaction Status Date / Time pollen extracts Allergy Intermediate SNEEZING, Verified 02/29/24 13:33 CONGESTION Home Medications Medication Instructions Recorded Confirmed Type BD Ultra-Fine Lin Pen Needle 32 #200 ea 12/24/22 02/23/24 Rx gauge x 5/32" (pen needle, diabetic) blood sugar diagnostic (Prodigy No 03/31/23 02/23/24 History Coding strips) valsartan 80 mg tablet 80 mg PO BID #180 tabs 04/14/23 02/29/24 Rx lancets 30 gauge #400 ea 05/02/23 02/23/24 Rx blood sugar diagnostic (True #300 strips 08/22/23 02/23/24 Rx Metrix Glucose Test Strip) triamterene 37.5 1 tab PO Q2D #90 tabs 09/15/23 02/29/24 Rx mg-hydrochlorothiazide 25 mg tablet insulin aspar prot-insulin aspart 7 unit (0.07 mL) subcut BID 90 11/15/23 02/29/24 Rx 100 unit/mL (70-30) subcutaneous days #15 mL pen metformin 500 mg tablet 500 mg PO BID #180 tabs 12/23/23 02/29/24 Rx pravastatin 40 mg tablet 40 mg PO HS #90 tabs 12/23/23 02/29/24 Rx clonidine 0.3 mg/24 hr weekly 1 patch transdermal WK #4 ea 01/31/24 02/29/24 Rx transdermal patch semaglutide 0.25 mg or 0.5 mg (2 0.25 mg (0.368 mL) subcut Q7D #9 mL 02/08/24 02/29/24 Rx mg/3 mL) subcutaneous pen injector (Ozempic) levothyroxine 88 mcg tablet 88 mcg PO DAILY #90 tabs 02/13/24 02/29/24 Rx sertraline 100 mg tablet 100 mg PO DAILY #90 tabs 02/13/24 02/29/24 Rx cranberry 500 mg capsule 1,500 mg PO DAILY 02/16/24 02/29/24 History hydralazine 25 mg tablet 25 mg PO TID #100 tabs 02/22/24 02/29/24 Rx metoprolol tartrate 25 mg tablet 25 mg PO BID #60 tabs 02/22/24 02/29/24 Rx Patient History Medical History Type 2 diabetes mellitus with obesity Asthma Chronic kidney disease, stage 3 Compensated HCV cirrhosis Hypertension Hypertrophic obstructive cardiomyopathy (HOCM) Hypothyroidism Left ventricular outflow tract obstruction Surgical History S/P hysterectomy S/P appendectomy Family History Son Myocardial infarction Other Hypertension Melanoma Denies family history of Ovarian cancer Prostate cancer Breast cancer Social History Smoking Status: Never smoker Tobacco Type: Cigars Second Hand Exposure: No; Do You Dip or Chew Tobacco: No; Hx Alcohol Use: No Hx Substance Use: No Preferred Language: [place] Communication Ability: Effective Visual Impairment: No Limitations Hearing Ability: Normal Roll Setter Required: No Beliefs That Will Affect Care: None marital status: Current Living Situation: Alone Current Living Situation Comment: alone current occupational status: retired Other Information That Helps Us Care for You: No Feels Safe at Home: Yes Safety Concerns: Feels Safe At This Time Childhood Exposure to Second-Hand Smoke: No Dental Care, Regularly: No Physical Activity Frequency: 3-4 Times per Week Seatbelt Use: always Sunscreen Use: No Assistive Devices: None Review of Systems Review of Systems: Per HPI. No recent fevers or chills. Physical Exam Physical Exam: She is alert and oriented x3. Mood affect appear normal. She answered all questions appropriately. HEENT: Sclerae are anicteric. Pupils are equal and reactive to light and accommodation. Extraocular movements were intact. Neuro: Cranial nerves intact Lungs: Lungs are clear to auscultation bilaterally. There are no rales wheezes or rhonchi. She has normal respiratory effort without use of accessory muscles. There is normal pulmonary excursion. Cardiac: The rhythm was regular. S1 and S2 were normal. Crescendo systolic murmur. The PMI was not markedly displaced on palpation. Extremities: Patient has bilateral radial pulses that are equal in intensity. There is no evidence cyanosis or clubbing. There was no evidence of significant peripheral edema bilaterally. Skin: There are no rashes noted on examination today. Results & Data Vital Signs (Past 12 Hours) Vital Signs Temp Pulse Pulse Resp BP Pulse Ox O2 Del Method 03/04/24 08:14 36.7 C 60 18 169/73 H 98 Room Air 03/04/24 02:57 36.5 C 82 17 154/71 H 94 Room Air 03/03/24 23:14 36.7 C 89 18 152/72 H 95 Room Air 03/03/24 21:58 53 L Laboratory Results Abnormal Lab Results 03/03/24 03/03/24 03/03/24 12:16 14:24 17:17 WBC RBC Hgb Hct MCV MCH MCHC RDW Std Deviation RDW Coeff of Luther Plt Count MPV Sodium Potassium Chloride Carbon Dioxide Anion Gap BUN Creatinine Est Cr Clr Drug Dosing Est GFR ( Amer) Est GFR (Non-Af Amer) BUN/Creatinine Ratio Glucose POC Glucose 244 H 126 H Calcium Troponin I High Sens 148.4 H* D Random Cortisol 12.99 03/03/24 03/04/24 03/04/24 20:04 06:40 08:07 WBC 5.01 RBC 4.28 Hgb 11.7 L Hct 36.9 L MCV 86.2 MCH 27.3 MCHC 31.7 L RDW Std Deviation 46.9 H RDW Coeff of Luther 15.0 H Plt Count 54 L MPV 10.7 Sodium 137 Potassium 4.0 Chloride 104 Carbon Dioxide 28 Anion Gap 5 BUN 34 H Creatinine 1.06 Est Cr Clr Drug Dosing 45.7 Est GFR ( Amer) 59.1 Est GFR (Non-Af Amer) 51.0 BUN/Creatinine Ratio 32.1 H Glucose 162 H POC Glucose 227 H 145 H Calcium 8.1 L Troponin I High Sens Random Cortisol Diagnostic Findings Echocardiogram dated 03/01/2024: Normal LV systolic function with hyperdynamic ventricle ejection fraction of 70%. Severe asymmetric hypertrophy involving the anterior septum. Left ventricular outflow peak velocity 3.2 m/sec with a gradient of 41 mm of mercury. Mild left atrial dilation. Mild mitral stenosis. Severe mitral annular calcification ECG Additional Comments: EKG demonstrated normal sinus rhythm with left ventricular hypertrophy and associated repolarization abnormality PG Care Time/CCT Total # of Minutes Spent Total Time Spent with Patient: Total time spent is greater than 50% in coordination of care (as documented) at patient's floor/unit and/or counseling patient: Coding Level of Care Code 97765 INT INP/OBS CARE 3/75MIN Diagnoses Syncope R55 Left ventricular outflow tract obstruction Q24.8 Elevated troponin R79.89 Labile hypertension R09.89 Mild aortic stenosis I35.0 Mitral regurgitation I34.0 Orthostatic hypotension I95.1
--- NOTE | 2024-03-04 14:53 | Hospitalist Progress Note ---
Date of Service March 04, 2024 Assessment & Plan (1) Recurrent falls: Plan: Reports 7-8 falls at home since discharge on 02/24, lives alone Base CT revealed minimally displaced right nasal bone fracture with nasal contusion. Head CT revealed age-indeterminate left cerebellar infarct (new from 2013 comparison); see #2 (CVA) Suspect related to orthostatic hypotension In the setting for HOCM, concern for outflow obstruction with concomitant dehydration Received IVF x3 03/01 PT/OT consulted - recommend that if she is discharged home she should have 24 hour supervison and PT 3X weekly for at least 2 weeks low platelets - chronic issue for patient, hx of Hep C - down to 54 today, AM CBC Patient remains orthostatic - Patient is 6.2 liters positive this admission - metoprolol increased back to 25mg PO BID in hopes that filling time increases and cardiac output improves - AM cortisol level: 12.99 - Repeat troponin level downtrending - Cardiology consulted - Recommend Norepinephrine level in AM (ordered) - may be a candidate for droxidopa - could consider switching metoprolol to diltiazem - could consider invasive eval and DORIS - add fludrocortisone (ordered) (2) CVA (cerebral vascular accident): Plan: Head CT revealed age-indeterminate left cerebellar infarct (new from 2012 comparison) Cartoid dopplers without significant stenosis Brain MRI/MRA ordered but not completed due to patient preference, if symptoms do not improve with treated her blood pressures can reevaluated Continue ASA 81mg (3) Labile hypertension: Plan: Hx of labile hypertension - last admission (02/15-02/21) Diltazem was changed to metoprolol and prn PO clonidine changed to scheduled PO hydralazine - patient was using clonidine patch, however one present currently is from prior admission (placed 02/18) - patch removed - continue to hold Hold Valsartan, hydralzine, clonidine and prn triamterene-HCTZ Incraese Metoprolol tartrate back to 25mg BID as defined above in #1 (4) SUNNY (acute kidney injury): Plan: BUN 139, creatinine 2.18 (baseline 1.2), eGFR 20.1 Avoid nephrotoxic agents Hold triamterene-HCTZ (this is prn for patient at home) Hold valsartan Improving, but still with elevated BUN. (5) Elevated troponin: Plan: Type 2 MA due to demand ischemia Troponin 843.3-->842.6 --> now 330 ECG sinus rhythm with PACs Patient denies CP Troponin overall downtrending. Repeat today Check repeat ECG as patient is still orthostatic Consult cardiology as above (6) Hypermagnesemia: Plan: Magnesium 3.3 on arrival Fluids as above Downtrending now 2.3 continue to trend - no intervention needed (7) Type 2 diabetes mellitus with obesity: Plan: Last A1c 7.1% on 12/23/2023 Home regiment is insulin 70/30 - 7 units BID, and metfomin 500mg BID SSI while inpatient - CF and CR tightened 03/02 Lantus 4 units BID BSG ACHS (8) Hypertrophic obstructive cardiomyopathy (HOCM): Plan: Likely a contributing factor in recurrent syncope Monitor hydration status I&Os positive 6.2 L this admission Cardiology consult as above (9) Abdominal pain: Plan: Lipase elevated on admission, patient without abdominal pain, recheck improving 03/04 reporting abdominal pain, and feels like she needs to have a BM, however abdomen is diffusely tender AM CMP and lipase Plan Disposition: continued inpatient stay VTE PPx: SCDs Admission and Anticipated Discharge Date Admission Date: February 29, 2024 Supervising Physician Co-Signing Physician Notes Attending Attestation - Chart reviewed, care plan d/w TK Patel. I agree w/ the varghese components of her documentation. Appreciate cardiology consultation for LVOT obstruction and recs. If patient continues with ambulatory dysfunction and balance issues obtain MRI brain due to previously discovered old cerebellar CVA on CT head. Michel Gonzales MD Subjective Patient lying in bed. Feeling alittle better today, reports felling more with it. Was able to sit up to the chair for breakfast no lightheadedness or dizziness but overall she doesnt get those prodrome features when she is about to passout More belly pain today, feel like she needs to have a bowel movement. states it is normal for her to have a bowel movement every 3-4 days. interestingly, she tells me she was put on a beta alex many years ago and ended up passing out at work SB/SR 50-70s Review of Systems Review of Systems: All systems reviewed & are unremarkable except as noted in Subjective Physical Exam Physical Exam: General: NAD, VS as above HEENT: wound over nose healing Resp: normal respiratory effort, lungs clear to auscultation CV: RRR, no murmur, Abd: normal bowel sounds, soft but diffusely tender, worse LUQ Back: dressing in place, bruise right lower side, non tender to palpation Extremities: Moves all extremities, no edema Results & Data Results & Data Vital Signs (Past 12 Hours) Vital Signs Temp Pulse Resp BP Pulse Ox O2 Del Method 03/04/24 11:46 36.9 C 52 L 18 156/74 H 97 Room Air 03/04/24 08:14 36.7 C 60 18 169/73 H 98 Room Air 03/04/24 02:57 36.5 C 82 17 154/71 H 94 Room Air Laboratory Results CBC and chemistry reviewed PG Care Time/CCT Total # of Minutes Spent Total Time Spent with Patient: Total time spent is greater than 50% in coordination of care (as documented) at patient's floor/unit and/or counseling patient: Coding Level of Care Code 56122 SUB INP/OBS CARE 3/50MIN Diagnoses Recurrent falls R29.6 CVA (cerebral vascular accident) I63.9 Labile hypertension R09.89 SUNNY (acute kidney injury) N17.9 Elevated troponin R79.89 Hypermagnesemia E83.41 Type 2 diabetes mellitus with obesity E11.69; E66.9 Hypertrophic obstructive cardiomyopathy (HOCM) I42.1 Abdominal pain R10.9
[2024-03-05 06:18] LABS: Albumin Globulin Ratio 1.1 (0.9-2); Albumin Level 2.9 gm/dl (3.4-5.0); BUN Creatinine Ratio 27.8 (10-20); Basophils # (auto) 0.02 K/uL (0.00-0.20); Basophils % (auto) 0.4 %; Bilirubin,Total 0.4 mg/dl (0.2-1.0); Calcium 8.3 mg/dl (8.6-10.3); Creatinine Clr Calc Pharmacy 44.7 ml/min; Eosinophils # (auto) 0.08 K/uL (0.00-0.50); Eosinophils % (auto) 1.7 %; Est GFR (African American) 57.7 ml/min; Est GFR (Non-African American) 49.8 ml/min; Globulin 2.6 gm/dl (2.5-4.0); Hematocrit (blood only) 37.8 % (37.0-47.0); Hemoglobin 11.8 g/dl (12.0-16.0); Immature Granulocytes # (auto) 0.01 K/uL (0.01-0.20); Immature Granulocytes % (auto) 0.2 %; Lymphocytes # (auto) 0.92 K/uL (1.20-3.40); Mean Corpuscular Hemoglobin 26.8 pg (25.0-34.0); Mean Corpuscular Hgb Conc 31.2 g/dL (32.0-36.0); Mean Corpuscular Volume 85.7 fL (80.0-100.0); Mean Platelet Volume 11.3 fL (9.4-12.4); Monocytes # (auto) 0.32 K/uL (0.11-0.59); Monocytes % (auto) 6.6 %; Neutrophils # (auto) 3.49 K/uL (1.40-6.50); Neutrophils % (auto) 72.1 %; Platelet Count 55 K/uL (130-400); Potassium 4.2 mmol/L (3.5-5.1); RDW Standard Deviation 46.4 fL (36.4-46.3); Red Blood Count 4.41 M/uL (4.20-5.40); Total Protein 5.5 gm/dl (6.0-8.3); White Blood Count 4.84 K/ul (4.8-10.8)
[2024-03-05] MEDS: FLUDROCORTISONE ACETATE 0.1 MG TAB PO SCH (09:44)
--- NOTE | 2024-03-05 14:51 | Cardiology Progress Note ---
Date of Service March 05, 2024 Assessment & Plan (1) Syncope: (2) Left ventricular outflow tract obstruction: (3) Elevated troponin: (4) Labile hypertension: (5) Mild aortic stenosis: (6) Mitral regurgitation: (7) Orthostatic hypotension: Plan 1. Syncope: No recurrence 2. Orthostatic hypotension: Vital signs suggest she is still orthostatic although curiously no rise in heart rate with drop in blood pressure. This was suggest an element of autonomic dysfunction. Curiously though she is not symptomatic with this fall in blood pressure (at least while the nurses are checking) 3. Obstructive cardiomyopathy: Moderate in severity. The severity appears have waxed and waned over the years and is likely related to the quality of the study performed at that time. Image quality is low in general. 4. Hypertension: Quite labile in the past. She has an element of high blood pressure at times. I think we may need to tolerate some elevated blood pressure in order to prevent recurrent symptoms of syncope and falling. 5. Aortic stenosis: Mild. Not a current clinical concern. 6. Mitral regurgitation: Not seen on the current study. This can be followed over time. Started on fludrocortisone. Norepinephrine level pending. Overall she reports improvement in her symptoms. If her symptoms have improved would not worry so much about the lower blood pressures at times. I think we will continue her current medical therapy and have her ambulate this afternoon. If she is ambulatory and feeling well she can potentially be discharged with outpatient follow-up tomorrow. Admission and Anticipated Discharge Date Admission Date: February 29, 2024 Subjective This afternoon the patient was angry. She was hungry and wanted to eat. She had been up in a chair earlier but states she needed to go back to bed because her back it started hurting. She reported being ambulatory yesterday evening around the room. She did not report similar symptoms to what she experienced prior to admission. No significant dizziness or lightheadedness. Her strength overall appears to be improving by report Review of Systems Review of Systems: Per HPI Physical Exam Physical Exam: She is alert and oriented x3. Mood affect appear normal. She answered all questions appropriately. HEENT: Sclerae are anicteric. Pupils are equal and reactive to light and accommodation. Extraocular movements were intact. Neuro: Cranial nerves intact Lungs: Lungs are clear to auscultation bilaterally. There are no rales wheezes or rhonchi. She has normal respiratory effort without use of accessory muscles. There is normal pulmonary excursion. Cardiac: The rhythm was regular. S1 and S2 were normal. Crescendo systolic murmur. The PMI was not markedly displaced on palpation. Extremities: Patient has bilateral radial pulses that are equal in intensity. There is no evidence cyanosis or clubbing. There was no evidence of significant peripheral edema bilaterally. Skin: There are no rashes noted on examination today. Results & Data Vital Signs (Past 12 Hours) Vital Signs Temp Pulse Pulse Resp BP BP Pulse Ox 03/05/24 11:09 65 03/05/24 10:24 36.4 C L 61 17 156/65 H 97 03/05/24 09:41 36.4 C L 70 18 120/78 95 03/05/24 07:36 36.6 C 94 03/05/24 03:10 36.5 C 54 L 16 125/60 95 O2 Del Method 03/05/24 11:09 03/05/24 10:24 Room Air 03/05/24 09:41 Room Air 03/05/24 07:36 Room Air 03/05/24 03:10 Room Air Laboratory Results Abnormal Lab Results 03/04/24 03/04/24 03/05/24 16:46 20:14 05:40 WBC 4.84 RBC 4.41 Hgb 11.8 L Hct 37.8 MCV 85.7 MCH 26.8 MCHC 31.2 L RDW Std Deviation 46.4 H RDW Coeff of Luther 15.0 H Plt Count 55 L MPV 11.3 Immature Gran % (Auto) 0.2 Neut % (Auto) 72.1 Lymph % (Auto) 19.0 [place] % (Auto) 6.6 Eos % (Auto) 1.7 Baso % (Auto) 0.4 Neut # (Auto) 3.49 Lymph # (Auto) 0.92 L [place] # (Auto) 0.32 Eos # (Auto) 0.08 Baso # (Auto) 0.02 Immature Gran # (Auto) 0.01 Sodium 140 Potassium 4.2 Chloride 107 Carbon Dioxide 28 Anion Gap 5 BUN 30 H Creatinine 1.08 Est Cr Clr Drug Dosing 44.7 Est GFR ( Amer) 57.7 Est GFR (Non-Af Amer) 49.8 BUN/Creatinine Ratio 27.8 H Glucose 145 H POC Glucose 156 H 258 H Calcium 8.3 L Total Bilirubin 0.4 AST 52 H ALT 46 Alkaline Phosphatase 83 Total Protein 5.5 L Albumin 2.9 L Globulin 2.6 Albumin/Globulin Ratio 1.1 Lipase 57 03/05/24 03/05/24 08:00 11:59 WBC RBC Hgb Hct MCV MCH MCHC RDW Std Deviation RDW Coeff of Luther Plt Count MPV Immature Gran % (Auto) Neut % (Auto) Lymph % (Auto) [place] % (Auto) Eos % (Auto) Baso % (Auto) Neut # (Auto) Lymph # (Auto) [place] # (Auto) Eos # (Auto) Baso # (Auto) Immature Gran # (Auto) Sodium Potassium Chloride Carbon Dioxide Anion Gap BUN Creatinine Est Cr Clr Drug Dosing Est GFR ( Amer) Est GFR (Non-Af Amer) BUN/Creatinine Ratio Glucose POC Glucose 148 H 176 H Calcium Total Bilirubin AST ALT Alkaline Phosphatase Total Protein Albumin Globulin Albumin/Globulin Ratio Lipase PG Care Time/CCT Total # of Minutes Spent Total Time Spent with Patient: Total time spent is greater than 50% in coordination of care (as documented) at patient's floor/unit and/or counseling patient: Coding Level of Care Code 78635 SUB INP/OBS CARE 2/35MIN Diagnoses Syncope R55 Left ventricular outflow tract obstruction Q24.8 Elevated troponin R79.89 Labile hypertension R09.89 Mild aortic stenosis I35.0 Mitral regurgitation I34.0 Orthostatic hypotension I95.1
--- NOTE | 2024-03-05 15:09 | Hospitalist Progress Note ---
Date of Service March 05, 2024 Assessment & Plan (1) Recurrent falls: Plan: Reports 7-8 falls at home since discharge on 02/24, lives alone Base CT revealed minimally displaced right nasal bone fracture with nasal contusion. Head CT revealed age-indeterminate left cerebellar infarct (new from 2013 comparison); see #2 (CVA) Suspect related to orthostatic hypotension vs possible new stroke In the setting for HOCM, concern for outflow obstruction with concomitant dehydration Received IVF x3 03/01 PT/OT consulted - recommend that if she is discharged home she should have 24 hour supervision and PT 3X weekly for at least 2 weeks - did have significant BP drop with OT to 87/56 on 03/05 low platelets - chronic issue for patient, hx of Hep C - now, AM CBC Patient remains orthostatic - metoprolol increased back to 25mg PO BID in hopes that filling time increases and cardiac output improves - AM cortisol level: 12.99 - Repeat troponin level downtrending - Cardiology consulted - Recommend Norepinephrine level in AM (ordered) - may be a candidate for droxidopa - could consider switching metoprolol to diltiazem - continue fludrocortisone (ordered) - orthostatic pressure but heart rate does not increase may reflect autonomic dysfunction - w/ labile pressures, tolerate higher pressures to prevent orthostasis (2) CVA (cerebral vascular accident): Plan: Head CT revealed age-indeterminate left cerebellar infarct (new from 2012 comparison) Carotid dopplers without significant stenosis Brain MRI/MRA reordered 03/05 with premedication, pending Continue ASA 81mg (3) Labile hypertension: Plan: Hx of labile hypertension - last admission (02/15-02/21) Diltazem was changed to metoprolol and prn PO clonidine changed to scheduled PO hydralazine - patient was using clonidine patch, however one present currently is from prior admission (placed 02/18) - patch removed - continue to hold Hold Valsartan, hydralzine, clonidine and prn triamterene-HCTZ Incraese Metoprolol tartrate back to 25mg BID as defined above in #1 (4) SUNNY (acute kidney injury): Plan: BUN 139, creatinine 2.18 (baseline 1.2), eGFR 20.1 Avoid nephrotoxic agents Hold triamterene-HCTZ (this is prn for patient at home) Hold valsartan Improving, but still with elevated BUN but downtrending AM BMP (5) Elevated troponin: Plan: Type 2 VA due to demand ischemia Troponin 843.3-->842.6 --> 330 --> 148 ECG sinus rhythm with PACs Patient denies CP (6) Hypermagnesemia: Plan: Magnesium 3.3 on arrival Fluids as above now resolved. (7) Type 2 diabetes mellitus with obesity: Plan: Last A1c 7.1% on 12/23/2023 Home regiment is insulin 70/30 - 7 units BID, and metfomin 500mg BID SSI while inpatient - CF tightened 03/05 Lantus 4 units BID BSG ACHS (8) Hypertrophic obstructive cardiomyopathy (HOCM): Plan: Likely a contributing factor in recurrent syncope Monitor hydration status Cardiology consult as above (9) Abdominal pain: Plan: Lipase elevated on admission, patient without abdominal pain, recheck improving 03/04 reporting abdominal pain, and feels like she needs to have a BM, however abdomen is diffusely tender 03/05 abdominal pain improving, plan for miralax this afternoon. No LFT elevations, lipase WNL Plan Disposition: continued inpatient stay VTE PPx: SCDs Admission and Anticipated Discharge Date Admission Date: February 29, 2024 Supervising Physician Co-Signing Physician Notes Attending Attestation - Chart reviewed, care plan d/w TK Patel. I agree w/ the varghese components of her documentation. Michel Gonzales MD Subjective Patient lying in bed, reports she could only sit in the chair for 10-20 minutes because her back hurts - reports she has two "busted discs" and is not a surgical candidate no recent BM but is planning to take miralax. Discussed brain MRIs and she is willing to do so with premedication. Tele SR PACs 60s Review of Systems Review of Systems: All systems reviewed & are unremarkable except as noted in Subjective Physical Exam Physical Exam: General: NAD, VS as above HEENT: wound over nose healing Resp: normal respiratory effort, lungs clear to auscultation CV: RRR, + systolic murmur Abd: normal bowel sounds, tenderness improving Back: dressing in place, bruise right lower side, non tender to palpation Extremities: Moves all extremities, no edema Results & Data Results & Data Vital Signs (Past 12 Hours) Vital Signs Temp Pulse Pulse Resp BP BP Pulse Ox 03/05/24 14:48 36.7 C 60 19 119/68 94 03/05/24 11:09 65 03/05/24 10:24 36.4 C L 61 17 156/65 H 97 03/05/24 09:41 36.4 C L 70 18 120/78 95 03/05/24 07:36 36.6 C 94 03/05/24 03:10 36.5 C 54 L 16 125/60 95 O2 Del Method 03/05/24 14:48 Room Air 03/05/24 11:09 03/05/24 10:24 Room Air 03/05/24 09:41 Room Air 03/05/24 07:36 Room Air 03/05/24 03:10 Room Air Laboratory Results CBC and chemistry reviewed PG Care Time/CCT Total # of Minutes Spent Total Time Spent with Patient: Total time spent is greater than 50% in coordination of care (as documented) at patient's floor/unit and/or counseling patient: Coding Level of Care Code 82667 SUB INP/OBS CARE 2/35MIN Diagnoses Recurrent falls R29.6 CVA (cerebral vascular accident) I63.9 Labile hypertension R09.89 SUNNY (acute kidney injury) N17.9 Elevated troponin R79.89 Hypermagnesemia E83.41 Type 2 diabetes mellitus with obesity E11.69; E66.9 Hypertrophic obstructive cardiomyopathy (HOCM) I42.1 Abdominal pain R10.9
[2024-03-05] MEDS: POLYETHYLENE (MIRALAX) 17 GM PACK PO PRN (15:12)
[2024-03-05] MEDS: LORazepam 0.5 MG TAB PO PRN (16:19)
--- NOTE | 2024-03-05 18:00 | Magnetic Resonance Report ---
MR ANGIOGRAM OF THE BRAIN CLINICAL HISTORY: Left cerebellar infarct. COMPARISON STUDY: MRI of the brain performed concurrently on 03/05/2024.. TECHNIQUE: 3-D [id number] MR angiography of the intracranial circulation is performed. 3-D tumble views are created and assessed. IV contrast was not administered for this examination. FINDINGS: The internal carotid arteries are widely patent bilaterally, as are the anterior and middle cerebral arteries. The vertebrobasilar system and posterior cerebral arteries are widely patent. The vertebral arteries are codominant. There is no aneurysm, high-grade stenosis, or focal vessel cutoff seen throughout the intracranial circulation. The brain parenchyma is normal as visualized. IMPRESSION: Unremarkable MR angiogram of the brain. ACT 112: Negative or not required by law. Electronically signed by: Ady Robertson M.D. 03/05/2024 5:57 PM
--- NOTE | 2024-03-05 18:08 | Magnetic Resonance Report ---
MRI OF THE BRAIN WITHOUT IV CONTRAST CLINICAL HISTORY: Falls. Abnormal CT scan. COMPARISON STUDY: CT of the brain dated 02/29/2024. TECHNIQUE: MRI of the brain was performed utilizing various T1 and T2-weighted sequences in the axial , sagittal, and coronal planes. IV contrast was not administered for this examination. FINDINGS: Brain parenchyma: There is age related involutional change noting mild to moderate subcortical and pe riventricular microangiopathic disease. There are small chronic infarcts within both frontal lobes, a s well as within both cerebellar hemispheres. No restricted diffusion is seen typical for acute ische lamar. There is no hemorrhage or mass effect. Abreu-white matter differentiation is preserved. No extra- axial fluid collection is seen. The cerebellar tonsils are normal in configuration. Ventricles, sulci, and cisterns: Prominent secondary to positional change. Pituitary and sella: Unremarkable. Intracranial vasculature: Normal flow voids are maintained at the skull base. Orbits: The bony orbits are grossly intact. Orbital contents are normal in appearance. Sinuses and mastoids: There is trace mucosal thickening within the ethmoid sinuses. The remaining par anasal sinuses are clear. There is trace right mastoid effusion. Calvarium: Unremarkable. Cervical cord: Partially visualized cervical spinal cord is normal in morphology and signal intensity . IMPRESSION: 1. No acute intracranial abnormality. 2. Small chronic infarcts as above. ACT 112: Negative or not required by law. Electronically signed by: Ady Robertson M.D. 03/05/2024 6:05 PM
[2024-03-06 06:29] LABS: BUN Creatinine Ratio 30.3 (10-20); Calcium 8.3 mg/dl (8.6-10.3); Creatinine Clr Calc Pharmacy 44.2 ml/min; Est GFR (African American) 57.1 ml/min; Est GFR (Non-African American) 49.3 ml/min; Potassium 4.3 mmol/L (3.5-5.1)
[2024-03-06 06:32] LABS: Hematocrit (blood only) 37.4 % (37.0-47.0); Hemoglobin 11.9 g/dl (12.0-16.0); Mean Corpuscular Hemoglobin 27.2 pg (25.0-34.0); Mean Corpuscular Hgb Conc 31.8 g/dL (32.0-36.0); Mean Corpuscular Volume 85.4 fL (80.0-100.0); Mean Platelet Volume 11.7 fL (9.4-12.4); Platelet Count 66 K/uL (130-400); RDW Standard Deviation 46.6 fL (36.4-46.3); Red Blood Count 4.38 M/uL (4.20-5.40); White Blood Count 4.98 K/ul (4.8-10.8)
--- NOTE | 2024-03-06 08:45 | Hospitalist Progress Note ---
Date of Service March 06, 2024 Assessment & Plan (1) Recurrent falls: Plan: Reports 7-8 falls at home since discharge on 02/24, lives alone Base CT revealed minimally displaced right nasal bone fracture with nasal contusion. Head CT revealed age-indeterminate left cerebellar infarct (new from 2013 comparison); see #2 (CVA) Suspect related to orthostatic hypotension vs possible new stroke In the setting for HOCM, concern for outflow obstruction with concomitant dehydration Received IVF x3 03/01 PT/OT consulted - recommend that if she is discharged home she should have 24 hour supervision and PT 3X weekly for at least 2 weeks - did have significant BP drop with OT to 87/56 on 03/05 low platelets - chronic issue for patient, hx of Hep C - now, AM CBC Patient remains orthostatic - metoprolol increased back to 25mg PO BID in hopes that filling time increases and cardiac output improves - AM cortisol level: 12.99 - Repeat troponin level downtrending - Cardiology consulted - Recommend Norepinephrine level in AM (ordered) - may be a candidate for droxidopa - could consider switching metoprolol to diltiazem - continue fludrocortisone (ordered) - orthostatic pressure but heart rate does not increase may reflect autonomic dysfunction - w/ labile pressures, tolerate higher pressures to prevent orthostasis 03/06 Notified cards of BP drop yesterday w/ therapy as above, however patient IMPROVED on exam. Orthostatic VS improved Remains on fludrocortisone daily- norepinephrine level pending. Cards on consult, appreciate recs/assistance Remains on metoprolol, increased back to 25mg BID for filling time/improvement in cardiac output. Home hydralazine/clonidine/valsartan/triamterene-HCTZ on hold and should remain as such at nd for now Improvement in mobility today, ambulation encouraged. PT/OT consutled, CM notified to apply for auth and will plan for [facility] once received. MRI obtained last evening, NO NEW infarcts, noting small chronic infarcts within both frontal lobes, as well as within both cerebellar hemispheres - remains on [id number] daily (NEW MED) (2) CVA (cerebral vascular accident): Plan: Head CT revealed age-indeterminate left cerebellar infarct (new from 2012 comparison) Carotid dopplers without significant stenosis Brain MRI/MRA reordered 03/05 with premedication, pending Continue on ASA 81mg - new rx at dc MRI noting Small chronic infarcts as above, no new findings (3) Labile hypertension: Plan: Hx of labile hypertension - last admission (02/15-02/21) Diltazem was changed to metoprolol and prn PO clonidine changed to scheduled PO hydralazine - patient was using clonidine patch, however one present currently is from prior admission (placed 02/18) --> REMOVED. Continue to hold as above METOPROLOL INCREASED BACK TO 25mg BID ABOVE -- CONTINUE home Valsartan, hydralzine, clonidine and prn triamterene-HCTZ ON HOLD ABOVE (4) SUNNY (acute kidney injury): Plan: BUN/Cr 139/2.18 on admission w/ baseline Cr ~1.2 Home valsartan, triamterene-HCTZ on hold as above BUN/Cr IMPROVED -- currently 33/1.09 Avoid nephrotoxins/renal dose meds as able BMP in AM (5) Elevated troponin: Plan: Type 2 AK due to demand ischemia Troponin 843.3-->842.6 --> 330 --> 148 ECG sinus rhythm with PACs Patient denies CP at present time (6) Hypermagnesemia: Plan: Magnesium 3.3 on arrival, fluids provided, now resolved (7) Type 2 diabetes mellitus with obesity: Plan: Last A1c 7.1% on 12/23/2023 Home regiment is insulin 70/30 - 7 units BID, and metfomin 500mg BID Lantus 4u BID, SSI ordered --> elevation in BSGs, ?fludrocortisone, ?improvement in PO intake --> INCREASING LANTUS 6u BID closer to home dose and continue SSI for now and monitor to resume back home regimen (8) Hypertrophic obstructive cardiomyopathy (HOCM): Plan: Likely a contributing factor in recurrent syncope but also w/ her old CVAs in cerebellum may be contributing. Suspect medications including combination of clonidine and diuretics/ARB in setting of HOCM contributing Cardiology consulted, telemetry monitoring Metoprolol increased and continued as above Discussed continued monitoring of her hydration status/avoidance of diuretics (9) Abdominal pain: Plan: Lipase elevated on admission, patient without abdominal pain, recheck improving 03/04 reporting abdominal pain, and feels like she needs to have a BM, however abdomen is diffusely tender 03/05 abdominal pain improving, plan for miralax this afternoon. No LFT elevations, lipase WNL 03/06-- +BS throughout, passing LOTS of gas. Ambulation increased and feels like has to have bowel movement and will have RN provide additional dose miralax for today/monitor (10) Thrombocytopenia: Plan: chronically low platelets. Appears not worse than prior. No bleeding reported (did have some when fell/smashed her nose on admission w/ syncopal episode) Is on aspirin and will need to continue to monitor Appears hx HCV cirrhosis in chart- PCP notes ?blood transfusion related. Tx w/ [facility] in 2013. Pref not to follow w/ hepatology. Consideration for EGD/EMIR US next visit w/ PCP if pt agreeable. Plan Disposition: continued inpatient stay, SCDs for DVT proph. CM notified to apply for auth for today, planning for [facility] when auth received Admission and Anticipated Discharge Date Admission Date: February 29, 2024 Supervising Physician Co-Signing Physician Notes The patient was not seen by me. The chart was reviewed. Case discussed with TK Mathis. Agree with assessment and plan Subjective Evaluated this morning, resting in bed. Reports feeling better, got herself up to the chair today and back into bed. Orthostatics improved. No further feeling like she's going to pass out. Blood pressures stable, off diuretics/antihypertensive agents. No CP/SOB reported. Reviewed MRI brain w/o acute CVA but noting old smaller CVAs, continues on aspirin. No increased reflux and remains on pepcid once daily. No BM but pass LOTs of gas. Feeling like she needs to move her bowels and notes had been issue with laying in the bed, hopefully improves w/ continued ambulation. Notified CM about applying for auth, discussed w/ patient and will plan for dc once received. Is a retired light truck driver. Questions/concerns addressed at this time. Physical Exam Physical Exam: General: 78yo female sitting up in bed, NAD, appear improved Head normocephalic, healing wound/contusion to her nose, dried blood to nares Resp: even/unlabored, no w/c/r, on room air CV: RRR, +systolic murmur, no pitting edema, no calf tenderness GI: +BS throughout, soft, no over tenderness no ramos MSK/Neuro: nonfocal, moves all extremities, no slurred speech/facial droop Psych: AOx3, cooperative with exam Results & Data Results & Data Vital Signs (Past 12 Hours) Vital Signs Temp Pulse Pulse Resp BP Pulse Ox O2 Del Method 03/06/24 07:44 37.1 C 62 20 168/70 H 97 Room Air 03/06/24 02:51 36.5 C 60 18 146/69 H 94 Room Air 03/05/24 22:47 36.9 C 61 18 134/78 97 Room Air 03/05/24 21:58 63 Laboratory Results 03/06/24 03/06/24 03/06/24 Range/Units 11:33 07:24 05:31 WBC 4.98 (4.8-10.8) K/ul RBC 4.38 (4.20-5.40) M/uL Hgb 11.9 L (12.0-16.0) g/dl Hct 37.4 (37.0-47.0) % MCV 85.4 (80.0-100.0) fL MCH 27.2 (25.0-34.0) pg MCHC 31.8 L (32.0-36.0) g/dL RDW Std Deviation 46.6 H (36.4-46.3) fL RDW Coeff of Luther 15.0 H (11.5-14.5) % Plt Count 66 L (130-400) K/uL MPV 11.7 (9.4-12.4) fL Sodium 142 (136-145) mmol/L Potassium 4.3 (3.5-5.1) mmol/L Chloride 107 (98-107) mmol/L Carbon Dioxide 28 (21-32) mmol/L Anion Gap 7 (3-11) BUN 33 H (6-23) mg/dl Creatinine 1.09 (0.6-1.2) mg/dl Est Cr Clr Drug Dosing 44.2 ml/min Est GFR ( Amer) 57.1 ml/min Est GFR (Non-Af Amer) 49.3 ml/min BUN/Creatinine Ratio 30.3 H (10-20) Glucose 120 H (70-99(Fasting)) mg/dl POC Glucose 213 H 124 H (70-99) mg/dl Calcium 8.3 L (8.6-10.3) mg/dl 03/05/24 03/05/24 03/05/24 Range/Units 20:07 16:40 16:38 WBC (4.8-10.8) K/ul RBC (4.20-5.40) M/uL Hgb (12.0-16.0) g/dl Hct (37.0-47.0) % MCV (80.0-100.0) fL MCH (25.0-34.0) pg MCHC (32.0-36.0) g/dL RDW Std Deviation (36.4-46.3) fL RDW Coeff of Luther (11.5-14.5) % Plt Count (130-400) K/uL MPV (9.4-12.4) fL Sodium (136-145) mmol/L Potassium (3.5-5.1) mmol/L Chloride (98-107) mmol/L Carbon Dioxide (21-32) mmol/L Anion Gap (3-11) BUN (6-23) mg/dl Creatinine (0.6-1.2) mg/dl Est Cr Clr Drug Dosing ml/min Est GFR ( Amer) ml/min Est GFR (Non-Af Amer) ml/min BUN/Creatinine Ratio (10-20) Glucose (70-99(Fasting)) mg/dl POC Glucose 297 H 276 H 302 H* (70-99) mg/dl Calcium (8.6-10.3) mg/dl 03/05/24 Range/Units 11:59 WBC (4.8-10.8) K/ul RBC (4.20-5.40) M/uL Hgb (12.0-16.0) g/dl Hct (37.0-47.0) % MCV (80.0-100.0) fL MCH (25.0-34.0) pg MCHC (32.0-36.0) g/dL RDW Std Deviation (36.4-46.3) fL RDW Coeff of Luther (11.5-14.5) % Plt Count (130-400) K/uL MPV (9.4-12.4) fL Sodium (136-145) mmol/L Potassium (3.5-5.1) mmol/L Chloride (98-107) mmol/L Carbon Dioxide (21-32) mmol/L Anion Gap (3-11) BUN (6-23) mg/dl Creatinine (0.6-1.2) mg/dl Est Cr Clr Drug Dosing ml/min Est GFR ( Amer) ml/min Est GFR (Non-Af Amer) ml/min BUN/Creatinine Ratio (10-20) Glucose (70-99(Fasting)) mg/dl POC Glucose 176 H (70-99) mg/dl Calcium (8.6-10.3) mg/dl Diagnostic Findings Brain MRI 03/05/24 14:06 MRI OF THE BRAIN WITHOUT IV CONTRAST CLINICAL HISTORY: Falls. Abnormal CT scan. COMPARISON STUDY: CT of the brain dated 02/29/2024. TECHNIQUE: MRI of the brain was performed utilizing various T1 and T2-weighted sequences in the axial, sagittal, and coronal planes. IV contrast was not administered for this examination. FINDINGS: Brain parenchyma: There is age related involutional change noting mild to moderate subcortical and periventricular microangiopathic disease. There are small chronic infarcts within both frontal lobes, as well as within both cereb ellar hemispheres. No restricted diffusion is seen typical for acute ischemia. There is no hemorrhage or mass effect. Abreu-white matter differentiation is preserved. No extra-axial fluid collection is seen. The cerebellar tonsils are normal in configuration. Ventricles, sulci, and cisterns: Prominent secondary to positional change. Pituitary and sella: Unremarkable. Intracranial vasculature: Normal flow voids are maintained at the skull base. Orbits: The bony orbits are grossly intact. Orbital contents are normal in appearance. Sinuses and mastoids: There is trace mucosal thickening within the ethmoid sinuses. The remaining paranasal sinuses are clear. There is trace right mastoid effusion. Calvarium: Unremarkable. Cervical cord: Partially visualized cervical spinal cord is normal in morphology and signal intensity. IMPRESSION: 1. No acute intracranial abnormality. 2. Small chronic infarcts as above. ACT 112: Negative or not required by law. Electronically signed by: Ady Robertson M.D. 03/05/2024 6:05 PM Head MRA 03/05/24 14:06 MR ANGIOGRAM OF THE BRAIN CLINICAL HISTORY: Left cerebellar infarct. COMPARISON STUDY: MRI of the brain performed concurrently on 03/05/2024.. TECHNIQUE: 3-D [id number] MR angiography of the intracranial circulation is performed. 3-D tumble views are created and assessed. IV contrast was not administered for this examination. FINDINGS: The internal carotid arteries are widely patent bilaterally, as are the anterior and middle cerebral arteries. The vertebrobasilar system and posterior cerebral arteries are widely patent. The vertebral arteries are codominant. There is no aneurysm, high-grade stenosis, or focal vessel cutoff seen throughout the intracranial circulation. The brain parenchyma is normal as visualized. IMPRESSION: Unremarkable MR angiogram of the brain. ACT 112: Negative or not required by law. Electronically signed by: Ady Robertson M.D. 03/05/2024 5:57 PM PG Care Time/CCT Total # of Minutes Spent Total Time Spent with Patient: Total time spent is greater than 50% in coordination of care (as documented) at patient's floor/unit and/or counseling patient: Coding Level of Care Code 72547 SUB INP/OBS CARE 3/50MIN Diagnoses Recurrent falls R29.6 CVA (cerebral vascular accident) I63.9 Labile hypertension R09.89 SUNNY (acute kidney injury) N17.9 Elevated troponin R79.89 Hypermagnesemia E83.41 Type 2 diabetes mellitus with obesity E11.69; E66.9 Hypertrophic obstructive cardiomyopathy (HOCM) I42.1 Abdominal pain R10.9 Thrombocytopenia D69.6
--- NOTE | 2024-03-06 17:24 | Cardiology Progress Note ---
Date of Service March 06, 2024 Assessment & Plan (1) Syncope: (2) Left ventricular outflow tract obstruction: (3) Elevated troponin: (4) Labile hypertension: (5) Mild aortic stenosis: (6) Mitral regurgitation: (7) Orthostatic hypotension: Plan 1. Syncope: No recurrence 2. Orthostatic hypotension: She still has a drop in blood pressure when standing. However, no overt symptoms. Likely due to improvement in her volume status. 3. Obstructive cardiomyopathy: Moderate in severity. The severity appears have waxed and waned over the years and is likely related to the quality of the study performed at that time. Image quality is low in general. 4. Hypertension: Still variable, but no extreme readings in either direction. I think what to tolerate some element of hypertension in order to avoid recurrent symptoms of syncope. 5. Aortic stenosis: Mild. Not a current clinical concern. 6. Mitral regurgitation: Not seen on the current study. This can be followed over time. She seems to be doing well on her current medical regimen. This likely due to improved intravascular volume status. She could continue on her current medical regimen in the outpatient setting if she is ambulatory. Plans appear to be underway for a brief stay at rehab. Admission and Anticipated Discharge Date Admission Date: February 29, 2024 Subjective The patient reported feeling better overall today. She was up in a chair for an extended period. She was able to get back into bed by herself. She reported walking with physical therapy and a walker for fair distance. She has not had recurrence of her syncope or significant lower extremity weakness. Review of Systems Review of Systems: Per HPI Physical Exam Physical Exam: She is alert and oriented x3. Mood affect appear normal. She answered all questions appropriately. HEENT: Sclerae are anicteric. Pupils are equal and reactive to light and accommodation. Extraocular movements were intact. Neuro: Cranial nerves intact Lungs: Lungs are clear to auscultation bilaterally. There are no rales wheezes or rhonchi. She has normal respiratory effort without use of accessory muscles. There is normal pulmonary excursion. Cardiac: The rhythm was regular. S1 and S2 were normal. Crescendo systolic murmur. The PMI was not markedly displaced on palpation. Extremities: Patient has bilateral radial pulses that are equal in intensity. There is no evidence cyanosis or clubbing. There was no evidence of significant peripheral edema bilaterally. Skin: There are no rashes noted on examination today. Results & Data Vital Signs (Past 12 Hours) Vital Signs Temp Pulse Pulse Resp BP Pulse Ox O2 Del Method 03/06/24 16:34 59 L 03/06/24 15:40 36.7 C 60 18 134/61 94 Room Air 03/06/24 11:29 36.5 C 55 L 18 136/63 97 Room Air 03/06/24 09:00 58 L 03/06/24 07:44 37.1 C 62 20 168/70 H 97 Room Air Laboratory Results Abnormal Lab Results 03/05/24 03/06/24 03/06/24 20:07 05:31 07:24 WBC 4.98 RBC 4.38 Hgb 11.9 L Hct 37.4 MCV 85.4 MCH 27.2 MCHC 31.8 L RDW Std Deviation 46.6 H RDW Coeff of Luther 15.0 H Plt Count 66 L MPV 11.7 Sodium 142 Potassium 4.3 Chloride 107 Carbon Dioxide 28 Anion Gap 7 BUN 33 H Creatinine 1.09 Est Cr Clr Drug Dosing 44.2 Est GFR ( Amer) 57.1 Est GFR (Non-Af Amer) 49.3 BUN/Creatinine Ratio 30.3 H Glucose 120 H POC Glucose 297 H 124 H Calcium 8.3 L 03/06/24 03/06/24 11:33 16:32 WBC RBC Hgb Hct MCV MCH MCHC RDW Std Deviation RDW Coeff of Luther Plt Count MPV Sodium Potassium Chloride Carbon Dioxide Anion Gap BUN Creatinine Est Cr Clr Drug Dosing Est GFR ( Amer) Est GFR (Non-Af Amer) BUN/Creatinine Ratio Glucose POC Glucose 213 H 106 H Calcium PG Care Time/CCT Total # of Minutes Spent Total Time Spent with Patient: Total time spent is greater than 50% in coordination of care (as documented) at patient's floor/unit and/or counseling patient: Coding Level of Care Code 18880 SUB INP/OBS CARE 2/35MIN Diagnoses Syncope R55 Left ventricular outflow tract obstruction Q24.8 Elevated troponin R79.89 Labile hypertension R09.89 Mild aortic stenosis I35.0 Mitral regurgitation I34.0 Orthostatic hypotension I95.1
[2024-03-06] MEDS: DOCUSATE SODIUM 100 MG CAP PO SCH (17:58)
[2024-03-06] MEDS: LANTUS PER UNIT CHARGE SQ SCH (21:43)
--- NOTE | 2024-03-07 08:17 | Hospitalist Progress Note ---
Date of Service March 07, 2024 Assessment & Plan (1) Recurrent falls: Plan: Reports 7-8 falls at home since discharge on 02/24, lives alone Base CT revealed minimally displaced right nasal bone fracture with nasal contusion. Head CT revealed age-indeterminate left cerebellar infarct (new from 2013 comparison); see #2 (CVA) Suspect related to orthostatic hypotension vs possible new stroke In the setting for HOCM, concern for outflow obstruction with concomitant dehydration Received IVF x3 03/01 PT/OT consulted - recommend that if she is discharged home she should have 24 hour supervision and PT 3X weekly for at least 2 weeks - did have significant BP drop with OT to 87/56 on 03/05 low platelets - chronic issue for patient, hx of Hep C Patient remained orthostatic metoprolol increased back to 25mg PO BID in hopes that filling time increases and cardiac output improves AM cortisol level: 12.99 Repeat troponin level downtrending Cardiology consulted - Recommend Norepinephrine level in AM (ordered) - may be a candidate for droxidopa - could consider switching metoprolol to diltiazem - continue fludrocortisone (ordered) - orthostatic pressure but heart rate does not increase may reflect autonomic dysfunction - w/ labile pressures, tolerate higher pressures to prevent orthostasis 03/06 Notified cards of BP drop yesterday w/ therapy as above, however patient IMPROVED on exam. Orthostatic VS improved Remains on fludrocortisone daily- norepinephrine level pending. Cards on consult, appreciate recs/assistance Remains on metoprolol, increased back to 25mg BID for filling time/improvement in cardiac output. Home hydralazine/clonidine/valsartan/triamterene-HCTZ on hold and should remain as such at [facility] for now Improvement in mobility today, ambulation encouraged. PT/OT consulted, CM notified to apply for auth and will plan for [facility] once received. MRI obtained last evening, NO NEW infarcts, noting small chronic infarcts within both frontal lobes, as well as within both cerebellar hemispheres - remains on [id number] daily (NEW MED) 03/07 Doing well, BPs improved. Per cards, to continue current regimen at rehab (noting prior metoprolol held w/ parameters for HR, given this morning) Working on bowels, small BM overnight. +BS throughout but has some distension. Miralax increased to TID, senna added. Patient wanting to hold off suppository but will continue to monitor. Planning for [facility] once auth received. (2) Hypertrophic obstructive cardiomyopathy (HOCM): Plan: Likely a contributing factor in recurrent syncope but also w/ her old CVAs in cerebellum may be contributing. Suspect medications including combination of clonidine and diuretics/ARB in setting of HOCM contributing Cardiology consulted, telemetry monitoring Metoprolol increased and continued as above Discussed continued monitoring of her hydration status/avoidance of diuretics (3) CVA (cerebral vascular accident): Plan: Head CT revealed age-indeterminate left cerebellar infarct (new from 2013 comparison) Carotid dopplers without significant stenosis Brain MRI/MRA reordered 03/05 with premedication MRI noting Small chronic infarcts as above, no new findings Continue on ASA 81mg - new rx at dc (4) Labile hypertension: Plan: Hx of labile hypertension - last admission (02/15-02/21) Diltazem was changed to metoprolol and prn PO clonidine changed to scheduled PO hydralazine - patient was using clonidine patch, however one present currently is from prior admission (placed 02/18) --> REMOVED. Continue to hold as above METOPROLOL INCREASED BACK TO 25mg BID ABOVE -- CONTINUE home Valsartan, hydralzine, clonidine and prn triamterene-HCTZ ON HOLD ABOVE, not to continue at dc per cards (5) SUNNY (acute kidney injury): Plan: BUN/Cr 139/2.18 on admission w/ baseline Cr ~1.2 Home valsartan, triamterene-HCTZ on hold as above BUN/Cr IMPROVED -- currently 25/1.07 Avoid nephrotoxins/renal dose meds as able BMP in AM (6) Elevated troponin: Plan: Type 2 VA due to demand ischemia Troponin 843.3-->842.6 --> 330 --> 148 ECG sinus rhythm with PACs Patient denies CP at present time (7) Hypermagnesemia: Plan: Magnesium 3.3 on arrival, fluids provided, now resolved 1.9 (8) Type 2 diabetes mellitus with obesity: Plan: Last A1c 7.1% on 12/23/2023 Home regiment is insulin 70/30 - 7 units BID, and metformin 500mg BID Lantus 4u BID, SSI ordered --> elevation in BSGs, ?fludrocortisone, ?improvement in PO intake INCREASED LANTUS 6u BID closer to home dose and improvement in BSGs and will increase back to 7u BID for now/monitor (9) Abdominal pain: Plan: Lipase elevated on admission, patient without abdominal pain, recheck improving 03/04 reporting abdominal pain, and feels like she needs to have a BM, however abdomen is diffusely tender 03/05 abdominal pain improving, plan for miralax this afternoon. No LFT elevations, lipase WNL 03/06-- +BS throughout, passing LOTS of gas. Ambulation increased and feels like has to have bowel movement and will have RN provide additional dose miralax 03/07- small BM overnight, increased miralax to TID, senna added. Patient wanting to avoid suppository at present but will monitor (10) Thrombocytopenia: Plan: chronically low platelets. Appears not worse than prior. No bleeding reported (did have some when fell/smashed her nose on admission w/ syncopal episode) Is on aspirin and will need to continue to monitor Appears hx HCV cirrhosis in chart- PCP notes ?blood transfusion related in past reported w/ PRBC transfusion in [place] many years ago Tx w/ Tanisha in 2013. Pref not to follow w/ hepatology. Consideration for EGD/EMIR US next visit w/ PCP if pt agreeable. Plan Disposition: continued inpatient stay, SCDs for DVT proph. CM notified to apply for auth for today, planning for [facility] when auth received Admission and Anticipated Discharge Date Admission Date: February 29, 2024 Supervising Physician Co-Signing Physician Notes The patient was not seen by me. The chart was reviewed. Case discussed with TK Mathis. Agree with assessment and plan Subjective Evaluated this morning, good appetite this morning and typically doesn't eat breakfast. She notes a small bowel movement and passing lots of gas but feeling increased bloating and needing to move her bowels. Discussed suppository which she would like to hold off. Will increase her miralax to TID, add senna, ambulation encouraged and will continue to monitor. No further dizziness, has been ambulating the halls. FIrst time meeting parameters for metoprolol for this AM nursing staff given parameters and will continue parameters at rehab. HR in 60s this morning. CM following, auth for insurance pending. Physical Exam Physical Exam: General: 78yo female sitting up in bed, NAD, appear improved Head normocephalic, healing wound/contusion to her nose, dried blood to nares Resp: even/unlabored, no w/c/r, on room air CV: RRR, +systolic murmur, no pitting edema, no calf tenderness GI: +BS throughout, soft but slightly distended, generalized campiness no ramos MSK/Neuro: nonfocal, moves all extremities, no slurred speech/facial droop Psych: AOx3, cooperative with exam Results & Data Results & Data Vital Signs (Past 12 Hours) Vital Signs Temp Pulse Pulse Resp BP Pulse Ox O2 Del Method 03/07/24 07:14 37.0 C 19 174/72 H 94 Room Air 03/07/24 02:37 36.8 C 62 18 129/69 98 Room Air 03/06/24 22:56 36.8 C 60 18 140/70 97 Room Air 03/06/24 22:01 65 Laboratory Results 03/07/24 03/06/24 03/06/24 Range/Units 07:23 19:57 16:32 POC Glucose 166 H 167 H 106 H (70-99) mg/dl 03/06/24 Range/Units 11:33 POC Glucose 213 H (70-99) mg/dl PG Care Time/CCT Total # of Minutes Spent Total Time Spent with Patient: Total time spent is greater than 50% in coordination of care (as documented) at patient's floor/unit and/or counseling patient: Coding Level of Care Code 60856 SUB INP/OBS CARE 2/35MIN Diagnoses Recurrent falls R29.6 Hypertrophic obstructive cardiomyopathy (HOCM) I42.1 CVA (cerebral vascular accident) I63.9 Labile hypertension R09.89 SUNNY (acute kidney injury) N17.9 Elevated troponin R79.89 Hypermagnesemia E83.41 Type 2 diabetes mellitus with obesity E11.69; E66.9 Abdominal pain R10.9 Thrombocytopenia D69.6
[2024-03-07 10:01] LABS: Hematocrit (blood only) 37.4 % (37.0-47.0); Hemoglobin 11.6 g/dl (12.0-16.0); Mean Corpuscular Hemoglobin 26.7 pg (25.0-34.0); Mean Corpuscular Volume 86.2 fL (80.0-100.0); Mean Platelet Volume 11.5 fL (9.4-12.4); Platelet Count 62 K/uL (130-400); RDW Coefficient of Variation 14.9 % (11.5-14.5); RDW Standard Deviation 46.5 fL (36.4-46.3); Red Blood Count 4.34 M/uL (4.20-5.40); White Blood Count 3.33 K/ul (4.8-10.8)
[2024-03-07 10:12] LABS: BUN Creatinine Ratio 23.4 (10-20); Calcium 8.5 mg/dl (8.6-10.3); Est GFR (African American) 58.4 ml/min; Est GFR (Non-African American) 50.4 ml/min; Magnesium 1.9 mg/dl (1.7-2.4); Potassium 4.4 mmol/L (3.5-5.1)
[2024-03-07] MEDS: SENNA 8.6 MG TAB PO SCH (11:01)
[2024-03-07] MEDS: POLYETHYLENE (MIRALAX) 17 GM PACK PO SCH (14:58)
[2024-03-07] MEDS: LIDOCAINE 5% 1 PATCH TD SCH (16:14)
[2024-03-07] MEDS: LANTUS PER UNIT CHARGE SQ SCH (22:06)
[2024-03-08 06:41] LABS: Hematocrit (blood only) 35.5 % (37.0-47.0); Hemoglobin 10.8 g/dl (12.0-16.0); Mean Corpuscular Hemoglobin 26.5 pg (25.0-34.0); Mean Corpuscular Hgb Conc 30.4 g/dL (32.0-36.0); Mean Platelet Volume 10.8 fL (9.4-12.4); Platelet Count 57 K/uL (130-400); RDW Coefficient of Variation 15.1 % (11.5-14.5); RDW Standard Deviation 47.9 fL (36.4-46.3); Red Blood Count 4.08 M/uL (4.20-5.40)
[2024-03-08 06:48] LABS: Albumin Globulin Ratio 1.1 (0.9-2); BUN Creatinine Ratio 24.2 (10-20); Bilirubin,Total 0.3 mg/dl (0.2-1.0); Calcium 8.4 mg/dl (8.6-10.3); Creatinine Clr Calc Pharmacy 50.6 ml/min; Est GFR (African American) 67.4 ml/min; Est GFR (Non-African American) 58.2 ml/min; Globulin 2.7 gm/dl (2.5-4.0); Magnesium 1.9 mg/dl (1.7-2.4); Total Protein 5.7 gm/dl (6.0-8.3)
--- NOTE | 2024-03-08 09:07 | Hospitalist Progress Note ---
Date of Service March 08, 2024 Assessment & Plan (1) Recurrent falls: Plan: Reports 7-8 falls at home since discharge on 02/24, lives alone Base CT revealed minimally displaced right nasal bone fracture with nasal contusion. Head CT revealed age-indeterminate left cerebellar infarct (new from 2013 comparison); see #2 (CVA) Suspect related to orthostatic hypotension vs possible new stroke In the setting for HOCM, concern for outflow obstruction with concomitant dehydration Received IVF x3 03/01 PT/OT consulted - recommend that if she is discharged home she should have 24 hour supervision and PT 3X weekly for at least 2 weeks - did have significant BP drop with OT to 87/56 on 03/05 low platelets - chronic issue for patient, hx of Hep C Patient remained orthostatic metoprolol increased back to 25mg PO BID in hopes that filling time increases and cardiac output improves AM cortisol level: 12.99 Repeat troponin level downtrending Cardiology consulted - Recommend Norepinephrine level in AM (ordered) - may be a candidate for droxidopa - could consider switching metoprolol to diltiazem - continue fludrocortisone (ordered) - orthostatic pressure but heart rate does not increase may reflect autonomic dysfunction - w/ labile pressures, tolerate higher pressures to prevent orthostasis MRI head w/ NO NEW infarcts, noting small chronic infarcts within both frontal lobes, as well as within both cerebellar hemispheres - remains on [id number] daily (NEW MED, needs rx at co) 03/08 Continues on metoprolol 25mg PO BID, BP 153/67, HR 50-60s - for filling time/improvement in cardiac output. Has been ambulating the halls without issues, orthostatic VS improved Home hydralazine/clonidine/valsartan/triamterene-HCTZ on hold and should remain as such at co for now Remains on fludrocortisone daily - norepinephrine level pending. Miralax/senna, +BM last evening and this morning. CM contacted as planning for [facility] for rehab at [facility], auth still pending this morning (2) Hypertrophic obstructive cardiomyopathy (HOCM): Plan: Likely a contributing factor in recurrent syncope but also w/ her old CVAs in ce [place] may be contributing. Suspect medications including combination of clonidine and diuretics/ARB in setting of HOCM contributing Cardiology consulted, telemetry monitoring Metoprolol increased and continued as above Discussed continued monitoring of her hydration status/avoidance of diuretics (3) CVA (cerebral vascular accident): Plan: Head CT revealed age-indeterminate left cerebellar infarct (new from 2013 comparison) Carotid dopplers without significant stenosis Brain MRI/MRA reordered 03/05 with premedication MRI noting Small chronic infarcts as above, no new findings Continue on ASA 81mg - new rx at dc (4) Labile hypertension: Plan: Hx of labile hypertension - last admission (02/15-02/21) Diltazem was changed to metoprolol and prn PO clonidine changed to scheduled PO hydralazine - patient was using clonidine patch, however had one on prior (placed 02/18), since removed. Not to continue as below METOPROLOL INCREASED BACK TO 25mg BID ABOVE -- CONTINUE home Valsartan, hydralzine, clonidine and prn triamterene-HCTZ ON HOLD ABOVE, not to continue at dc per cards (5) SUNNY (acute kidney injury): Plan: BUN/Cr 139/2.18 on admission w/ baseline Cr ~1.2 Home valsartan, triamterene-HCTZ on hold as above Avoid nephrotoxins/renal dose meds as above RESOLVED-- BUN/Cr 23/0.95, good PO intake reported and will monitor (6) Elevated troponin: Plan: Type 2 RI due to demand ischemia Troponin 843.3-->842.6 --> 330 --> 148 ECG sinus rhythm with PACs Denies CP at present time (7) Hypermagnesemia: Plan: Magnesium 3.3 on arrival, fluids provided, now resolved 1.9 (8) Type 2 diabetes mellitus with obesity: Plan: Last A1c 7.1% on 12/23/2023 Home regiment is insulin 70/30 - 7 units BID, and metformin 500mg BID Lantus 4u BID on admission w/ SSI, increased to 6u BID and then to 7u BID on 03/07 --> increased back to 8u BID for today/monitor (9) Abdominal pain: Plan: Lipase elevated on admission, patient without abdominal pain, recheck improving 03/04 reporting abdominal pain, and feels like she needs to have a BM, however abdomen is diffusely tender 03/05 abdominal pain improving, plan for miralax this afternoon. No LFT elevations, lipase WNL 03/06-- +BS throughout, passing LOTS of gas. Ambulation increased and feels like has to have bowel movement and will have RN provide additional dose miralax 03/07- small BM overnight, increased miralax to TID, senna added. 03/08-- large BM last evening and into this morning. Continue bowel regimen/ambulation (10) Thrombocytopenia: Plan: chronically low platelets. Appears not worse than prior. No bleeding reported (did have some when fell/smashed her nose on admission w/ syncopal episode) Is on aspirin and will need to continue to monitor Appears hx HCV cirrhosis in chart- PCP notes ?blood transfusion related in past reported w/ PRBC transfusion in [place] many years ago Tx w/ Tanisha in 2014. Pref not to follow w/ hepatology. Consideration for EGD/EMIR US next visit w/ PCP if pt agreeable. fecal occult ordered for completeness, added pepcid daily for gi proph on aspirin 10mg daily Plan Disposition: continued inpatient stay, SCDs for DVT proph. Auth still pending, planning for [facility] when received Admission and Anticipated Discharge Date Admission Date: February 29, 2024 Supervising Physician Co-Signing Physician Notes The patient was not seen by me. The chart was reviewed. Case discussed with TK Mathis. Agree with assessment and plan Subjective Evaluated this morning, sitting up in bed. Still awaiting insurance authorization. Patient reports has been up frequently, no dizziness/feeling like going to pass out, tolerating metoprolol. Did have BM yesterday and good formed bowel movement this morning. Having some back discomfort from being in bed, reports lidocaine patch was very effective yesterday -- will order for today/daily. No CP/SOB reported. No nausea/vomiting. Does have occasional cough, reports chronic, phlegm,. Occ uses mucinex at home, will order. No bleeding reported, will order pepcid for GI proph given aspirin use. Questions/concerns addressed at this time. Physical Exam Physical Exam: General: 78yo female in bed, NAD, appears improved/ready for dc Head normocephalic, healing wound/contusion to her nose, dried blood to nares Resp: even/unlabored, no w/c/r, on room air CV: RRR, +systolic murmur, no pitting edema, no calf tenderness GI: +BS throughout, soft/less distension since moving her bowels no ramos MSK/Neuro: nonfocal, moves all extremities, no slurred speech/facial droop Psych: AOx3, cooperative with exam Results & Data Results & Data Vital Signs (Past 12 Hours) Vital Signs Temp Pulse Pulse Resp BP BP Pulse Ox 03/08/24 07:47 65 03/08/24 07:21 36.7 C 59 L 18 166/73 H 96 03/08/24 02:16 36.7 C 60 18 161/66 H 96 03/07/24 22:23 37.2 C 87 22 166/68 H 97 03/07/24 21:58 73 O2 Del Method 03/08/24 07:47 03/08/24 07:21 Room Air 03/08/24 02:16 Room Air 03/07/24 22:23 Room Air 03/07/24 21:58 Laboratory Results 03/08/24 03/08/24 03/08/24 Range/Units 11:11 07:19 05:47 WBC 3.30 L (4.8-10.8) K/ul RBC 4.08 L (4.20-5.40) M/uL Hgb 10.8 L (12.0-16.0) g/dl Hct 35.5 L (37.0-47.0) % MCV 87.0 (80.0-100.0) fL MCH 26.5 (25.0-34.0) pg MCHC 30.4 L (32.0-36.0) g/dL RDW Std Deviation 47.9 H (36.4-46.3) fL RDW Coeff of Luther 15.1 H (11.5-14.5) % Plt Count 57 L (130-400) K/uL MPV 10.8 (9.4-12.4) fL Sodium 142 (136-145) mmol/L Potassium 4.0 (3.5-5.1) mmol/L Chloride 109 H (98-107) mmol/L Carbon Dioxide 28 (21-32) mmol/L Anion Gap 5 (3-11) BUN 23 (6-23) mg/dl Creatinine 0.95 (0.6-1.2) mg/dl Est Cr Clr Drug Dosing 50.6 ml/min Est GFR ( Amer) 67.4 ml/min Est GFR (Non-Af Amer) 58.2 ml/min BUN/Creatinine Ratio 24.2 H (10-20) Glucose 142 H (70-99(Fasting)) mg/dl POC Glucose 221 H 159 H (70-99) mg/dl Calcium 8.4 L (8.6-10.3) mg/dl Magnesium 1.9 (1.7-2.4) mg/dl Total Bilirubin 0.3 (0.2-1.0) mg/dl AST 38 (13-39) U/L ALT 39 (7-52) U/L Alkaline Phosphatase 99 (34-104) U/L Total Protein 5.7 L (6.0-8.3) gm/dl Albumin 3.0 L (3.4-5.0) gm/dl Globulin 2.7 (2.5-4.0) gm/dl Albumin/Globulin Ratio 1.1 (0.9-2) 03/07/24 03/07/24 03/07/24 Range/Units 20:18 16:19 15:50 WBC (4.8-10.8) K/ul RBC (4.20-5.40) M/uL Hgb (12.0-16.0) g/dl Hct (37.0-47.0) % MCV (80.0-100.0) fL MCH (25.0-34.0) pg MCHC (32.0-36.0) g/dL RDW Std Deviation (36.4-46.3) fL RDW Coeff of Luther (11.5-14.5) % Plt Count (130-400) K/uL MPV (9.4-12.4) fL Sodium (136-145) mmol/L Potassium (3.5-5.1) mmol/L Chloride (98-107) mmol/L Carbon Dioxide (21-32) mmol/L Anion Gap (3-11) BUN (6-23) mg/dl Creatinine (0.6-1.2) mg/dl Est Cr Clr Drug Dosing ml/min Est GFR ( Amer) ml/min Est GFR (Non-Af Amer) ml/min BUN/Creatinine Ratio (10-20) Glucose (70-99(Fasting)) mg/dl POC Glucose 224 H 99 87 (70-99) mg/dl Calcium (8.6-10.3) mg/dl Magnesium (1.7-2.4) mg/dl Total Bilirubin (0.2-1.0) mg/dl AST (13-39) U/L ALT (7-52) U/L Alkaline Phosphatase (34-104) U/L Total Protein (6.0-8.3) gm/dl Albumin (3.4-5.0) gm/dl Globulin (2.5-4.0) gm/dl Albumin/Globulin Ratio (0.9-2) PG Care Time/CCT Total # of Minutes Spent Total Time Spent with Patient: Total time spent is greater than 50% in coordination of care (as documented) at patient's floor/unit and/or counseling patient: Coding Level of Care Code 80254 SUB INP/OBS CARE 2/35MIN Diagnoses Recurrent falls R29.6 Hypertrophic obstructive cardiomyopathy (HOCM) I42.1 CVA (cerebral vascular accident) I63.9 Labile hypertension R09.89 SUNNY (acute kidney injury) N17.9 Elevated troponin R79.89 Hypermagnesemia E83.41 Type 2 diabetes mellitus with obesity E11.69; E66.9 Abdominal pain R10.9 Thrombocytopenia D69.6
[2024-03-08] MEDS: LIDOCAINE 5% 1 PATCH TD SCH (10:00)
[2024-03-08] MEDS: FAMOTIDINE 10 MG TABLET PO SCH (10:00)
[2024-03-08] MEDS: guaiFENesin 600 MG TABCR PO SCH (20:39)
[2024-03-08] MEDS: LANTUS PER UNIT CHARGE SQ SCH (20:45)
[2024-03-09 06:36] LABS: Basophils # (auto) 0.02 K/uL (0.00-0.20); Basophils % (auto) 0.8 %; Eosinophils # (auto) 0.07 K/uL (0.00-0.50); Eosinophils % (auto) 2.7 %; Hematocrit (blood only) 34.8 % (37.0-47.0); Hemoglobin 10.7 g/dl (12.0-16.0); Immature Granulocytes # (auto) 0.01 K/uL (0.01-0.20); Immature Granulocytes % (auto) 0.4 %; Lymphocytes # (auto) 0.84 K/uL (1.20-3.40); Lymphocytes % (auto) 32.1 %; Mean Corpuscular Hemoglobin 26.8 pg (25.0-34.0); Mean Corpuscular Hgb Conc 30.7 g/dL (32.0-36.0); Mean Corpuscular Volume 87.2 fL (80.0-100.0); Mean Platelet Volume 11.3 fL (9.4-12.4); Monocytes # (auto) 0.23 K/uL (0.11-0.59); Monocytes % (auto) 8.8 %; Neutrophils # (auto) 1.45 K/uL (1.40-6.50); Neutrophils % (auto) 55.2 %; Platelet Count 57 K/uL (130-400); RDW Standard Deviation 47.4 fL (36.4-46.3); Red Blood Count 3.99 M/uL (4.20-5.40); White Blood Count 2.62 K/ul (4.8-10.8)
[2024-03-09 07:06] LABS: Albumin Globulin Ratio 1.2 (0.9-2); Albumin Level 2.9 gm/dl (3.4-5.0); BUN Creatinine Ratio 24.1 (10-20); Bilirubin,Total 0.3 mg/dl (0.2-1.0); Calcium 8.2 mg/dl (8.6-10.3); Creatinine Clr Calc Pharmacy 55.9 ml/min; Est GFR (Non-African American) 64.7 ml/min; Globulin 2.5 gm/dl (2.5-4.0); Magnesium 1.8 mg/dl (1.7-2.4); Total Protein 5.4 gm/dl (6.0-8.3)
--- NOTE | 2024-03-09 08:27 | Hospitalist Progress Note ---
Date of Service March 09, 2024 Assessment & Plan (1) Recurrent falls: Plan: Reports 7-8 falls at home since discharge on 02/24, lives alone Base CT revealed minimally displaced right nasal bone fracture with nasal contusion. Head CT revealed age-indeterminate left cerebellar infarct (new from 2013 comparison); see #2 (CVA) Suspect related to orthostatic hypotension vs possible new stroke In the setting for HOCM, concern for outflow obstruction with concomitant dehydration Received IVF x3 03/01 low platelets - chronic issue for patient, hx of Hep C Patient remained orthostatic metoprolol increased back to 25mg PO BID in hopes that filling time increases a nd cardiac output improves AM cortisol level: 12.99 Repeat troponin level downtrending Cardiology consulted - Recommend Norepinephrine level in AM (ordered) - may be a candidate for droxidopa - could consider switching metoprolol to diltiazem - continue fludrocortisone (ordered) - orthostatic pressure but heart rate does not increase may reflect autonomic dysfunction - w/ labile pressures, tolerate higher pressures to prevent orthostasis MRI head w/ NO NEW infarcts, noting small chronic infarcts within both frontal lobes, as well as within both cerebellar hemispheres - remains on [id number] daily (NEW MED, needs rx at [place]) 03/09 Continues on metoprolol 25mg PO BID, BP 174/71 HR 50-60s - for filling time/improvement in cardiac output. Has been ambulating the halls without issues, orthostatic VS improved Home hydralazine/clonidine/valsartan/triamterene-HCTZ on hold and should remain as such at [facility] for now Remains on fludrocortisone daily- norepinephrine level pending. Miralax/senna continued for bowel regimen CM contacted as planning for [facility] for rehab [place], auth still pending this afternoon (2) Hypertrophic obstructive cardiomyopathy (HOCM): Plan: Likely a contributing factor in recurrent syncope but also w/ her old CVAs in cerebellum may be contributing. Suspect medications including combination of clonidine and diuretics/ARB in setting of HOCM contributing Cardiology consulted, telemetry monitoring Metoprolol increased and continued as above Discussed continued monitoring of her hydration status/avoidance of diuretics -- encouraged to push IVF for today/slightly dry on exam (3) CVA (cerebral vascular accident): Plan: Head CT revealed age-indeterminate left cerebellar infarct (new from 2013 comparison) Carotid dopplers without significant stenosis Brain MRI/MRA reordered 03/05 with premedication -MRI noting Small chronic infarcts as above, no new findings. MRA unremarkable -Continue on ASA 81mg - new rx at [facility] (4) Labile hypertension: Plan: Hx of labile hypertension - last admission (02/15-02/21) Diltazem was changed to metoprolol and prn PO clonidine changed to scheduled PO hydralazine - patient was using clonidine patch, however had one on prior (placed 02/18), since removed. Not to continue as below METOPROLOL INCREASED BACK TO 25mg BID ABOVE -- CONTINUE home Valsartan, hydralzine, clonidine and prn triamterene-HCTZ ON HOLD ABOVE, not to continue at [facility] per cards (5) SUNNY (acute kidney injury): Plan: BUN/Cr 139/2.18 on admission w/ baseline Cr ~1.2 Home valsartan, triamterene-HCTZ on hold as above Avoid nephrotoxins/renal dose meds as above RESOLVED-- BUN/Cr 21/0.87 (6) Elevated troponin: Plan: Type 2 NH due to demand ischemia Troponin 843.3-->842.6 --> 330 --> 148 ECG sinus rhythm with PACs Denies CP at present time (7) Hypermagnesemia: Plan: Magnesium 3.3 on arrival, fluids provided, now resolved (8) Type 2 diabetes mellitus with obesity: Plan: Last A1c 7.1% on 12/23/2023 Home regiment is insulin 70/30 - 7 units BID, and metformin 500mg BID Lantus 4u BID on admission w/ SSI, increased to 6u BID and then to 7u BID on 03/07 --> increased back to 8u BID w/ improvement and will monitor (9) Abdominal pain: Plan: Lipase elevated on admission, patient without abdominal pain, recheck improving 03/04 reporting abdominal pain, and feels like she needs to have a BM, however abdomen is diffusely tender 03/05 abdominal pain improving, plan for miralax this afternoon. No LFT elevations, lipase WNL 03/06-- +BS throughout, passing LOTS of gas. Ambulation increased and feels like has to have bowel movement and will have RN provide additional dose miralax 03/07- small BM overnight, increased miralax to TID, senna added. 03/08-- large BM last evening and into this morning. 03/09- small BM, +BS on exam, slightly distended and remains on bowel regimen and continues w/ ambulation (10) Thrombocytopenia: Plan: chronically low platelets. Appears not worse than prior. No bleeding reported (did have some when fell/smashed her nose on admission w/ syncopal episode) Is on aspirin and will need to continue to monitor Appears hx HCV cirrhosis in chart- PCP notes ?blood transfusion related in past reported w/ [facility] transfusion in [place] many years ago Tx w/ Tanisha in 2014. Pref not to follow w/ hepatology. Consideration for EGD/EMIR US next visit w/ PCP if pt agreeable. fecal occult ordered for completeness, added pepcid daily for gi proph on aspirin 10mg daily Plan Disposition: continued inpatient stay, SCDs for DVT proph. Auth still pending, planning for [facility] when received Admission and Anticipated Discharge Date Admission Date: February 29, 2024 Supervising Physician Co-Signing Physician Notes The patient was not seen by me. The chart was reviewed. Case discussed with TK Mathis. Agree with assessment and plan Subjective eval this afternoon, laying in bed, ambulating halls. no acute issues, ongoing wait for bed at rehab due to auth still pending. small BM this morning but passing gas, continues on bowel regimen. no cp/sob. Physical Exam Physical Exam: General: 78yo female in bed, NAD, appears improved/ready for dc, auth still pending Head normocephalic, healing wound/contusion to her nose, dried blood to nares Resp: even/unlabored, no w/c/r, on room air CV: RRR, +systolic murmur, no pitting edema, no calf tenderness GI: +BS throughout, soft/slightly distended no ramos MSK/Neuro: nonfocal, moves all extremities, no slurred speech/facial droop Psych: AOx3, cooperative with exam Results & Data Results & Data Vital Signs (Past 12 Hours) Vital Signs Temp Pulse Pulse Resp BP Pulse Ox O2 Del Method 03/09/24 07:24 36.5 C 58 L 20 180/74 H 96 Room Air 03/09/24 02:51 36.6 C 51 L 18 158/75 H 97 Room Air 03/08/24 23:35 36.8 C 63 18 180/78 H 97 Room Air 03/08/24 23:32 59 L 03/08/24 22:59 Room Air 03/08/24 20:49 36.7 C 66 18 176/86 H 97 Room Air Laboratory Results 03/09/24 03/09/24 03/09/24 Range/Units 12:00 07:56 06:13 WBC 2.62 L (4.8-10.8) K/ul RBC 3.99 L (4.20-5.40) M/uL Hgb 10.7 L (12.0-16.0) g/dl Hct 34.8 L (37.0-47.0) % MCV 87.2 (80.0-100.0) fL MCH 26.8 (25.0-34.0) pg MCHC 30.7 L (32.0-36.0) g/dL RDW Std Deviation 47.4 H (36.4-46.3) fL RDW Coeff of Luther 15.0 H (11.5-14.5) % Plt Count 57 L (130-400) K/uL MPV 11.3 (9.4-12.4) fL Immature Gran % (Auto) 0.4 % Neut % (Auto) 55.2 % Lymph % (Auto) 32.1 % Petroleum % (Auto) 8.8 % Eos % (Auto) 2.7 % Baso % (Auto) 0.8 % Neut # (Auto) 1.45 (1.40-6.50) K/uL Lymph # (Auto) 0.84 L (1.20-3.40) K/uL Petroleum # (Auto) 0.23 (0.11-0.59) K/uL Eos # (Auto) 0.07 (0.00-0.50) K/uL Baso # (Auto) 0.02 (0.00-0.20) K/uL Immature Gran # (Auto) 0.01 (0.01-0.20) K/uL Sodium 142 (136-145) mmol/L Potassium 4.0 (3.5-5.1) mmol/L Chloride 110 H (98-107) mmol/L Carbon Dioxide 26 (21-32) mmol/L Anion Gap 6 (3-11) BUN 21 (6-23) mg/dl Creatinine 0.87 (0.6-1.2) mg/dl Est Cr Clr Drug Dosing 55.9 ml/min Est GFR ( Amer) 75.0 ml/min Est GFR (Non-Af Amer) 64.7 ml/min BUN/Creatinine Ratio 24.1 H (10-20) Glucose 149 H (70-99(Fasting)) mg/dl POC Glucose 200 H 133 H (70-99) mg/dl Calcium 8.2 L (8.6-10.3) mg/dl Magnesium 1.8 (1.7-2.4) mg/dl Total Bilirubin 0.3 (0.2-1.0) mg/dl AST 37 (13-39) U/L ALT 35 (7-52) U/L Alkaline Phosphatase 98 (34-104) U/L Total Protein 5.4 L (6.0-8.3) gm/dl Albumin 2.9 L (3.4-5.0) gm/dl Globulin 2.5 (2.5-4.0) gm/dl Albumin/Globulin Ratio 1.2 (0.9-2) Lyme Disease Screen Negative (Negative) 03/08/24 03/08/24 Range/Units 20:30 16:28 WBC (4.8-10.8) K/ul RBC (4.20-5.40) M/uL Hgb (12.0-16.0) g/dl Hct (37.0-47.0) % MCV (80.0-100.0) fL MCH (25.0-34.0) pg MCHC (32.0-36.0) g/dL RDW Std Deviation (36.4-46.3) fL RDW Coeff of Luther (11.5-14.5) % Plt Count (130-400) K/uL MPV (9.4-12.4) fL Immature Gran % (Auto) % Neut % (Auto) % Lymph % (Auto) % Petroleum % (Auto) % Eos % (Auto) % Baso % (Auto) % Neut # (Auto) (1.40-6.50) K/uL Lymph # (Auto) (1.20-3.40) K/uL Petroleum # (Auto) (0.11-0.59) K/uL Eos # (Auto) (0.00-0.50) K/uL Baso # (Auto) (0.00-0.20) K/uL Immature Gran # (Auto) (0.01-0.20) K/uL Sodium (136-145) mmol/L Potassium (3.5-5.1) mmol/L Chloride (98-107) mmol/L Carbon Dioxide (21-32) mmol/L Anion Gap (3-11) BUN (6-23) mg/dl Creatinine (0.6-1.2) mg/dl Est Cr Clr Drug Dosing ml/min Est GFR ( Amer) ml/min Est GFR (Non-Af Amer) ml/min BUN/Creatinine Ratio (10-20) Glucose (70-99(Fasting)) mg/dl POC Glucose 161 H 121 H (70-99) mg/dl Calcium (8.6-10.3) mg/dl Magnesium (1.7-2.4) mg/dl Total Bilirubin (0.2-1.0) mg/dl AST (13-39) U/L ALT (7-52) U/L Alkaline Phosphatase (34-104) U/L Total Protein (6.0-8.3) gm/dl Albumin (3.4-5.0) gm/dl Globulin (2.5-4.0) gm/dl Albumin/Globulin Ratio (0.9-2) Lyme Disease Screen (Negative) PG Care Time/CCT Total # of Minutes Spent Total Time Spent with Patient: Total time spent is greater than 50% in coordination of care (as documented) at patient's floor/unit and/or counseling patient: Coding Level of Care Code 35713 SUB INP/OBS CARE 2/35MIN Diagnoses Recurrent falls R29.6 Hypertrophic obstructive cardiomyopathy (HOCM) I42.1 CVA (cerebral vascular accident) I63.9 Labile hypertension R09.89 SUNNY (acute kidney injury) N17.9 Elevated troponin R79.89 Hypermagnesemia E83.41 Type 2 diabetes mellitus with obesity E11.69; E66.9 Abdominal pain R10.9 Thrombocytopenia D69.6
[2024-03-10 06:23] LABS: Hematocrit (blood only) 34.4 % (37.0-47.0); Hemoglobin 10.8 g/dl (12.0-16.0); Mean Corpuscular Hemoglobin 26.9 pg (25.0-34.0); Mean Corpuscular Hgb Conc 31.4 g/dL (32.0-36.0); Mean Corpuscular Volume 85.8 fL (80.0-100.0); Mean Platelet Volume 11.1 fL (9.4-12.4); Platelet Count 67 K/uL (130-400); RDW Coefficient of Variation 15.1 % (11.5-14.5); Red Blood Count 4.01 M/uL (4.20-5.40); White Blood Count 3.09 K/ul (4.8-10.8)
[2024-03-10 06:38] LABS: Albumin Level 2.9 gm/dl (3.4-5.0); BUN Creatinine Ratio 20.2 (10-20); Bilirubin Direct 0.1 mg/dl (0-0.2); Bilirubin,Total 0.4 mg/dl (0.2-1.0); Calcium 8.3 mg/dl (8.6-10.3); Creatinine Clr Calc Pharmacy 52.1 ml/min; Est GFR (African American) 68.3 ml/min; Est GFR (Non-African American) 58.9 ml/min; Potassium 4.2 mmol/L (3.5-5.1); Total Protein 5.5 gm/dl (6.0-8.3)
--- NOTE | 2024-03-10 08:49 | Hospitalist Progress Note ---
Date of Service March 10, 2024 Assessment & Plan (1) Recurrent falls: Plan: Reports 7-8 falls at home since discharge on 02/24, lives alone Base CT revealed minimally displaced right nasal bone fracture with nasal contusion. Head CT revealed age-indeterminate left cerebellar infarct (new from 2013 comparison); see #2 (CVA) Suspect related to orthostatic hypotension vs possible new stroke In the setting for HOCM, concern for outflow obstruction with concomitant dehydration Received IVF x3 03/01 low platelets - chronic issue for patient, hx of Hep C Patient remained orthostatic metoprolol increased back to 25mg PO BID in hopes that filling time increases a nd cardiac output improves AM cortisol level: 12.99 Repeat troponin level downtrending Cardiology consulted - Recommend Norepinephrine level in AM (ordered) - may be a candidate for droxidopa - could consider switching metoprolol to diltiazem - continue fludrocortisone (ordered) - orthostatic pressure but heart rate does not increase may reflect autonomic dysfunction - w/ labile pressures, tolerate higher pressures to prevent orthostasis MRI head w/ NO NEW infarcts, noting small chronic infarcts within both frontal lobes, as well as within both cerebellar hemispheres - remains on CII62ea daily (NEW MED, needs rx at [facility]) 03/09 Continues on metoprolol 25mg PO BID, BP 174/71 HR 50-60s - for filling time/improvement in cardiac output. Has been ambulating the halls without issues, orthostatic VS improved Home hydralazine/clonidine/valsartan/triamterene-HCTZ on hold and should remain as such at or for now Remains on fludrocortisone daily- norepinephrine level pending. Miralax/senna continued for bowel regimen CM contacted as planning for [facility] for rehab at [facility], auth still pending this afternoon 03/10 BPs stable, orthostatics have been stable/improved. No further dizziness/feeling like she is going to pass out. ALp elevated on labs and hx hep c/cirrhosis. Weights up, may need to resume low dose diuretic to maintain volume status but will touch base w/ cardiology -- discussed w/ Dr Shukla and ok to add back low dose diuretic --> ordered HCTZ 12.5mg and will monitor Monitor, insurance auth still pending (2) Hypertrophic obstructive cardiomyopathy (HOCM): Plan: Likely a contributing factor in recurrent syncope but also w/ her old CVAs in c erebellum may be contributing. Suspect medications including combination of clonidine and diuretics/ARB in setting of HOCM contributing Cardiology consulted, telemetry monitoring Metoprolol increased and continued as above Discussed continued monitoring of her hydration status/avoidance of diuretics (however, see above, resuming low dose HCTZ, BUN/Cr normalized and wnl 19 but Cr 0.87-> 0.94 and suspect 2nd to volume overload/weights up (3) CVA (cerebral vascular accident): Plan: Head CT revealed age-indeterminate left cerebellar infarct (new from 2012 comparison) Carotid dopplers without significant stenosis Brain MRI/MRA reordered 03/05 with premedication -MRI noting Small chronic infarcts as above, no new findings. MRA unremarkable -Continue on ASA 81mg - new rx at [facility] (4) Labile hypertension: Plan: Hx of labile hypertension - last admission (02/15-02/21) Diltazem was changed to metoprolol and prn PO clonidine changed to scheduled PO hydralazine - patient was using clonidine patch, however had one on prior (placed 02/18), since removed. Not to continue as below METOPROLOL INCREASED BACK TO 25mg BID ABOVE -- CONTINUE home Valsartan, hydralzine, clonidine and prn triamterene-HCTZ ON HOLD ABOVE -- resumed HCTZ 12.5mg given ongoing BP and stable orthostatics and renal function (5) SUNNY (acute kidney injury): Plan: BUN/Cr 139/2.18 on admission w/ baseline Cr ~1.2 Home valsartan, triamterene-HCTZ on hold as above Avoid nephrotoxins/renal dose meds as above RESOLVED-- BUN/Cr 21/0.87 --> 19/0.94 and will monitor in AM w/ resumption of HCTZ (6) Elevated troponin: Plan: Type 2 [place] due to demand ischemia Troponin 843.3-->842.6 --> 330 --> 148 ECG sinus rhythm with PACs Denies CP at present time (7) Hypermagnesemia: Plan: Magnesium 3.3 on arrival, fluids provided, now resolved (8) Type 2 diabetes mellitus with obesity: Plan: Last A1c 7.1% on 12/23/2023 Home regiment is insulin 70/30 - 7 units BID, and metformin 500mg BID Lantus 4u BID on admission w/ SSI, increased to 6u BID and then to 7u BID on 03/07 --> increased back to 8u BID w/ improvement and improved but does have lunch time elevation and will adjust SSI CR 8--> 5, continue CF 15 (9) Abdominal pain: Plan: Lipase elevated on admission, patient without abdominal pain, recheck improving 03/04 reporting abdominal pain, and feels like she needs to have a BM, however abdomen is diffusely tender 03/05 abdominal pain improving, plan for miralax this afternoon. No LFT elevations, lipase WNL 03/06-- +BS throughout, passing LOTS of gas. Ambulation increased and feels like has to have bowel movement and will have RN provide additional dose miralax 03/07- small BM overnight, increased miralax to TID, senna added. 03/08-- large BM last evening and into this morning. 03/09- small BM, +BS on exam, slightly distended and remains on bowel regimen and continues w/ ambulation 03/10 - passing lots of gas, slightly distended -- going to bathroom to "take a load off" when leaving exam and will monitor for BM. Continue bowel regimen (10) Thrombocytopenia: Plan: chronically low platelets. Appears not worse than prior. No bleeding reported (did have some when fell/smashed her nose on admission w/ syncopal episode) Is on aspirin and will need to continue to monitor Appears hx HCV cirrhosis in chart- PCP notes ?blood transfusion related in past reported w/ [facility] transfusion in [place] many years ago Tx w/ Tanisha in 2013. Pref not to follow w/ hepatology. Consideration for EGD/EMIR US next visit w/ PCP if pt agreeable. fecal occult ordered for completeness, added pepcid daily for gi proph on aspirin 10mg daily Plan Disposition: continued inpatient stay, SCDs for DVT proph. Auth still pending, planning for [facility] when received Admission and Anticipated Discharge Date Admission Date: February 29, 2024 Supervising Physician Co-Signing Physician Notes The patient was not seen by me. The chart was reviewed. Case discussed with TK Mathis. Agree with assessment and plan Subjective Evaluated this afternoon, ambulating to the bathroom, needing to "take a load off". Has increased abdominal distension and weights up and discussed resuming low dose HCTZ for volume management as well as BP and will monitor. Passing lots of gas, last BM documented large on 03/07 but did have loose BM 03/08. Insurance auth still pending at present time. Questions/concerns addressed at this time. Physical Exam Physical Exam: General: 78yo female in bed, NAD, appears improved/ready for dc, auth still pending Head normocephalic, healing wound/contusion to her nose, dried blood to nares Resp: even/unlabored, diminished in the bases, faint exp wheezing, no crackles/rales, on room air CV: RRR, +systolic murmur, no pitting edema, no calf tenderness GI: increased distension but +BS throughout, no overt tenderness/guarding no ramos MSK/Neuro: nonfocal, moves all extremities, no slurred speech/facial droop Psych: AOx3, cooperative with exam Results & Data Results & Data Vital Signs (Past 12 Hours) Vital Signs Temp Pulse Pulse Resp BP BP Pulse Ox 03/10/24 07:28 36.4 C L 62 20 177/80 H 96 03/10/24 02:45 36.7 C 59 L 18 177/79 H 96 03/09/24 23:18 36.8 C 59 L 18 153/84 H 97 03/09/24 23:18 57 L 03/09/24 22:23 O2 Del Method 03/10/24 07:28 Room Air 03/10/24 02:45 Room Air 03/09/24 23:18 Room Air 03/09/24 23:18 03/09/24 22:23 Room Air Laboratory Results 03/10/24 03/10/24 03/10/24 Range/Units 12:00 08:01 05:36 WBC 3.09 L (4.8-10.8) K/ul RBC 4.01 L (4.20-5.40) M/uL Hgb 10.8 L (12.0-16.0) g/dl Hct 34.4 L (37.0-47.0) % MCV 85.8 (80.0-100.0) fL MCH 26.9 (25.0-34.0) pg MCHC 31.4 L (32.0-36.0) g/dL RDW Std Deviation 47.0 H (36.4-46.3) fL RDW Coeff of Luther 15.1 H (11.5-14.5) % Plt Count 67 L (130-400) K/uL MPV 11.1 (9.4-12.4) fL Sodium 142 (136-145) mmol/L Potassium 4.2 (3.5-5.1) mmol/L Chloride 111 H (98-107) mmol/L Carbon Dioxide 26 (21-32) mmol/L Anion Gap 5 (3-11) BUN 19 (6-23) mg/dl Creatinine 0.94 (0.6-1.2) mg/dl Est Cr Clr Drug Dosing 52.1 ml/min Est GFR ( Amer) 68.3 ml/min Est GFR (Non-Af Amer) 58.9 ml/min BUN/Creatinine Ratio 20.2 H (10-20) Glucose 119 H (70-99(Fasting)) mg/dl POC Glucose 242 H 123 H (70-99) mg/dl Calcium 8.3 L (8.6-10.3) mg/dl Total Bilirubin 0.4 (0.2-1.0) mg/dl Direct Bilirubin 0.1 (0-0.2) mg/dl AST 37 (13-39) U/L ALT 34 (7-52) U/L Alkaline Phosphatase 112 H (34-104) U/L Total Protein 5.5 L (6.0-8.3) gm/dl Albumin 2.9 L (3.4-5.0) gm/dl 03/09/24 03/09/24 Range/Units 20:20 16:55 WBC (4.8-10.8) K/ul RBC (4.20-5.40) M/uL Hgb (12.0-16.0) g/dl Hct (37.0-47.0) % MCV (80.0-100.0) fL MCH (25.0-34.0) pg MCHC (32.0-36.0) g/dL RDW Std Deviation (36.4-46.3) fL RDW Coeff of Luther (11.5-14.5) % Plt Count (130-400) K/uL MPV (9.4-12.4) fL Sodium (136-145) mmol/L Potassium (3.5-5.1) mmol/L Chloride (98-107) mmol/L Carbon Dioxide (21-32) mmol/L Anion Gap (3-11) BUN (6-23) mg/dl Creatinine (0.6-1.2) mg/dl Est Cr Clr Drug Dosing ml/min Est GFR ( Amer) ml/min Est GFR (Non-Af Amer) ml/min BUN/Creatinine Ratio (10-20) Glucose (70-99(Fasting)) mg/dl POC Glucose 178 H 145 H (70-99) mg/dl Calcium (8.6-10.3) mg/dl Total Bilirubin (0.2-1.0) mg/dl Direct Bilirubin (0-0.2) mg/dl AST (13-39) U/L ALT (7-52) U/L Alkaline Phosphatase (34-104) U/L Total Protein (6.0-8.3) gm/dl Albumin (3.4-5.0) gm/dl PG Care Time/CCT Total # of Minutes Spent Total Time Spent with Patient: Total time spent is greater than 50% in coordination of care (as documented) at patient's floor/unit and/or counseling patient: Coding Level of Care Code 50986 SUB INP/OBS CARE 2/35MIN Diagnoses Recurrent falls R29.6 Hypertrophic obstructive cardiomyopathy (HOCM) I42.1 CVA (cerebral vascular accident) I63.9 Labile hypertension R09.89 SUNNY (acute kidney injury) N17.9 Elevated troponin R79.89 Hypermagnesemia E83.41 Type 2 diabetes mellitus with obesity E11.69; E66.9 Abdominal pain R10.9 Thrombocytopenia D69.6
[2024-03-10] MEDS: hydroCHLOROthiazide 25 MG TAB PO SCH (12:54)
[2024-03-11 06:32] LABS: Albumin Globulin Ratio 1.2 (0.9-2); Albumin Level 2.9 gm/dl (3.4-5.0); BUN Creatinine Ratio 21.6 (10-20); Bilirubin,Total 0.4 mg/dl (0.2-1.0); Calcium 8.2 mg/dl (8.6-10.3); Est GFR (Non-African American) 63.8 ml/min; Globulin 2.5 gm/dl (2.5-4.0); Magnesium 1.7 mg/dl (1.7-2.4); Potassium 3.7 mmol/L (3.5-5.1); Total Protein 5.4 gm/dl (6.0-8.3)
--- NOTE | 2024-03-11 08:33 | Hospitalist Progress Note ---
Date of Service March 11, 2024 Assessment & Plan (1) Recurrent falls: Plan: Reports 7-8 falls at home since discharge on 02/24, lives alone Base CT revealed minimally displaced right nasal bone fracture with nasal contusion. Head CT revealed age-indeterminate left cerebellar infarct (new from 2013 comparison); see #2 (CVA) Suspect related to orthostatic hypotension vs possible new stroke In the setting for HOCM, concern for outflow obstruction with concomitant dehydration Received IVF x3 03/01 low platelets - chronic issue for patient, hx of Hep C Patient remained orthostatic metoprolol increased back to 25mg PO BID in hopes that filling time increases a nd cardiac output improves AM cortisol level: 12.99 Repeat troponin level downtrending Cardiology consulted - Recommend Norepinephrine level in AM (ordered) - may be a candidate for droxidopa - could consider switching metoprolol to diltiazem - continue fludrocortisone (ordered) - orthostatic pressure but heart rate does not increase may reflect autonomic dysfunction - w/ labile pressures, tolerate higher pressures to prevent orthostasis MRI head w/ NO NEW infarcts, noting small chronic infarcts within both frontal lobes, as well as within both cerebellar hemispheres - remains on [id number] daily (NEW MED, needs rx at or) 03/09 Continues on metoprolol 25mg PO BID, BP 174/71 HR 50-60s - for filling time/improvement in cardiac output. Has been ambulating the halls without issues, orthostatic VS improved Home hydralazine/clonidine/valsartan/triamterene-HCTZ on hold and should remain as such at or for now Remains on fludrocortisone daily- norepinephrine level pending. Miralax/senna continued for bowel regimen CM contacted as planning for [facility] for rehab at or, auth still pending this afternoon 03/10 BPs stable, orthostatics have been stable/improved. No further dizziness/feeling like she is going to pass out. ALp elevated on labs and hx hep c/cirrhosis. Weights up, may need to resume low dose diuretic to maintain volume status but will touch base w/ cardiology -- discussed w/ Dr Shukla and ok to add back low dose diuretic --> ordered HCTZ 12.5mg and will monitor Monitor, insurance auth still pending 03/11 (2) Hypertrophic obstructive cardiomyopathy (HOCM): Plan: Likely a contributing factor in recurrent syncope but also w/ her old CVAs in cerebellum may be contributing. Suspect medications including combination of clonidine and diuretics/ARB in setting of HOCM contributing Cardiology consulted, telemetry monitoring Metoprolol increased and continued as above Discussed continued monitoring of her hydration status/avoidance of diuretics (however, see above, resuming low dose HCTZ, BUN/Cr normalized and wnl 19 but Cr 0.87-> 0.94 and suspect 2nd to volume overload/weights up (3) CVA (cerebral vascular accident): Plan: Head CT revealed age-indeterminate left cerebellar infarct (new from 2012 comparison) Carotid dopplers without significant stenosis Brain MRI/MRA reordered 03/05 with premedication -MRI noting Small chronic infarcts as above, no new findings. MRA unremarkable -Continue on ASA 81mg - new rx at dc (4) Labile hypertension: Plan: Hx of labile hypertension - last admission (02/15-02/21) Diltazem was changed to metoprolol and prn PO clonidine changed to scheduled PO hydralazine - patient was using clonidine patch, however had one on prior (placed 02/18), since removed. Not to continue as below METOPROLOL INCREASED BACK TO 25mg BID ABOVE -- CONTINUE home Valsartan, hydralzine, clonidine and prn triamterene-HCTZ ON HOLD ABOVE -- resumed HCTZ 12.5mg given ongoing BP and stable orthostatics and renal function (5) SUNNY (acute kidney injury): Plan: BUN/Cr 139/2.18 on admission w/ baseline Cr ~1.2 Home valsartan, triamterene-HCTZ on hold as above Avoid nephrotoxins/renal dose meds as above RESOLVED-- BUN/Cr 21/0.87 --> 19/0.94 and will monitor in AM w/ resumption of HCTZ (6) Elevated troponin: Plan: Type 2 TX due to demand ischemia Troponin 843.3-->842.6 --> 330 --> 148 ECG sinus rhythm with PACs Denies CP at present time (7) Hypermagnesemia: Plan: Magnesium 3.3 on arrival, fluids provided, now resolved (8) Type 2 diabetes mellitus with obesity: Plan: Last A1c 7.1% on 12/23/2023 Home regiment is insulin 70/30 - 7 units BID, and metformin 500mg BID Lantus 4u BID on admission w/ SSI, increased to 6u BID and then to 7u BID on 03/07 --> increased back to 8u BID w/ improvement and improved but does have lunch time elevation and will adjust SSI CR 8--> 5, continue CF 15 (9) Abdominal pain: Plan: Lipase elevated on admission, patient without abdominal pain, recheck improving 03/04 reporting abdominal pain, and feels like she needs to have a BM, however abdomen is diffusely tender 03/05 abdominal pain improving, plan for miralax this afternoon. No LFT elevations, lipase WNL 03/06-- +BS throughout, passing LOTS of gas. Ambulation increased and feels like has to have bowel movement and will have RN provide additional dose miralax 03/07- small BM overnight, increased miralax to TID, senna added. 03/08-- large BM last evening and into this morning. 03/09- small BM, +BS on exam, slightly distended and remains on bowel regimen and continues w/ ambulation 03/10 - passing lots of gas, slightly distended -- going to bathroom to "take a load off" when leaving exam and will monitor for BM. Continue bowel regimen (10) Thrombocytopenia: Plan: chronically low platelets. Appears not worse than prior. No bleeding reported (did have some when fell/smashed her nose on admission w/ syncopal episode) Is on aspirin and will need to continue to monitor Appears hx HCV cirrhosis in chart- PCP notes ?blood transfusion related in past reported w/ [facility] transfusion in [place] many years ago Tx w/ T[place] in 2013. Pref not to follow w/ hepatology. Consideration for EGD/EMIR US next visit w/ PCP if pt agreeable. fecal occult ordered for completeness, added pepcid daily for gi proph on aspirin 10mg daily Plan Disposition: continued inpatient stay, SCDs for DVT proph. Auth still pending, planning for [facility] when received Admission and Anticipated Discharge Date Admission Date: February 29, 2024 Results & Data Results & Data Vital Signs (Past 12 Hours) Vital Signs Temp Pulse Pulse Resp BP BP Pulse Ox 03/11/24 07:18 36.4 C L 58 L 18 173/78 H 94 03/11/24 03:42 36.4 C L 55 L 18 162/77 H 97 03/10/24 23:33 62 03/10/24 23:11 36.8 C 60 18 167/79 H 97 03/10/24 20:42 36.7 C 70 18 165/73 H 97 O2 Del Method 03/11/24 07:18 Room Air 03/11/24 03:42 Room Air 03/10/24 23:33 03/10/24 23:11 Room Air 03/10/24 20:42 Room Air PG Care Time/CCT Total # of Minutes Spent Total Time Spent with Patient: Total time spent is greater than 50% in coordination of care (as documented) at patient's floor/unit and/or counseling patient: Coding Diagnoses Recurrent falls R29.6 Hypertrophic obstructive cardiomyopathy (HOCM) I42.1 CVA (cerebral vascular accident) I63.9 Labile hypertension R09.89 SUNNY (acute kidney injury) N17.9 Elevated troponin R79.89 Hypermagnesemia E83.41 Type 2 diabetes mellitus with obesity E11.69; E66.9 Abdominal pain R10.9 Thrombocytopenia D69.6
--- NOTE | 2024-03-11 09:22 | Discharge Summary ---
Date of Service March 11, 2024 Admission HPI Per Admitting Provider Leeann is a 78yo female with PMH HOCM, labile HTN, mitral regurgitation, dyslipidemia, T2DM, asthma, hypothyroidism, depression with anxiety, and CKD stage III. Patient arrives via EMS for recurrent falls after being discharged on Saturday 02/24. Patient reports that she had 78 falls at home that all occurred when she went to stand up. Whenever she would stand she would pass out. She lives alone, and is unsure how long she can be on the ground for, but would wake up "cold his eyes". Patient reports that she does not feel dizzy or presyncopal when she is resting or laying flat. She reports that she has not be en able to eat anything because she cannot reach it without passing out. She also notes that she struck her face on the commode when she got up to use the restroom, and believes that she broke her nose. Patient does not use a walker or cane for ambulation. She reports that she only took one of her new blood pressure medications today, but is unsure what she took. Patient manages her own medications at home. She denies any smoking, alcohol use, tobacco use. ED Course: Lactated Ringer at 125mL/hr ROS: Patient endorses recurrent falls, Patient denies fever, chills, nightsweats, chest pain, SOB, chest palpitations, cough, abdominal pain, N/V/D, constipation, pain in legs. Admission Exam Per Admitting Provider General: no acute distress; non-toxic appearing; SpO2 97% on RA HEENT: Bruising above the left eye, and dried blood in the right nostril; both nostrils are patent; no scleral icterus; PERRLA; moist mucus membrane; vision and hearing grossly intact Neck: supple; no lymphadenopathy; trachea midline Skin: warm, dry without signs of tenting; no cyanosis; no rashes, bruising, lesions, or erythema noted CV: chest wall NTP; RRR; S1/S2 normal; 3/6 ejection murmur auscultated at the second ICS MCL with radiation to the carotids; pulses intact and symmetric at radial, DP, and PT Lungs: no acute respiratory distress; symmetrical chest wall expansion; clear breath sounds across all lung culver w/o adventitious sounds; no wheezing ABD: Soft, NTP; BS present; no rebound/guarding; no distention MSK: no tics or fasciculations; no edema noted in the LEs b/l, nonerythematous Neuro: A&Ox3; normal mood and affect; fluent speech; no focal deficits; sensation grossly intact in the LEs b/l Principal Diagnosis Syncope, LVOT, Dehydration Discharge Exam General: 78yo female in bed, NAD, appears improved/ready for dc, moved bowels a couple of times Head normocephalic, healing wound/contusion to her nose, dried blood to nares Resp: even/unlabored, diminished in the bases, no crackles/rales, on room air CV: RRR, +systolic murmur, no pitting edema, no calf tenderness GI: LESS distension, no overt tenderness/guarding, +fullness no ramos MSK/Neuro: nonfocal, moves all extremities, no slurred speech/facial droop Psych: AOx3, cooperative with exam Discharge Data Allergies Allergy/AdvReac Type Severity Reaction Status Date / Time pollen extracts Allergy Intermediate SNEEZING, Verified 02/29/24 13:33 CONGESTION Consultations 02/29/24 15:57 ED Decision to Admit Stat 03/03/24 14:09 Consult Cardiology Routine Ordered Studies Cervical Spine CT 02/29/24 13:[address] DOSE: 1181.38 mGy.cm HISTORY: trauma TECHNIQUE: Multiaxial CT images of the cervical spine were performed and reformatted in the sagittal and coronal plane without the use of contrast. A dose lowering technique was utilized adhering to the principles of ALARA. COMPARISON: None. FINDINGS: No fractures. No subluxation. Prevertebral soft tissues and the C1-C2 interval are intact. No pneumothorax. Severe disc space narrowing and endplate osteophytes from C3 through C7. IMPRESSION: No fractures within the cervical spine. ACT 112: Negative or not required by law. Electronically signed by: Tamir Sofia M.D. 02/29/2024 2:16 PM Chest X-Ray 02/29/24 13:48 XR chest 1V not portable CLINICAL HISTORY: trauma COMPARISON STUDY: Chest radiograph February 21, 2024. FINDINGS: Lung volumes are normal. Lungs are clear. There is no pneumothorax or pleural effusion. Cardiac size is normal. Mediastinal contours are normal. There is no evidence for pulmonary edema. IMPRESSION: No acute cardiopulmonary findings. No change in appearance of the chest. ACT 112: Negative or not required by law. Electronically signed by: Tej Forte M.D. 02/29/2024 3:[address] 02/29/24 13:[address] WITHOUT CONTRAST CLINICAL HISTORY: trauma COMPARISON STUDY: Head CT July 28, 2013. TECHNIQUE: A maxillofacial CT was performed without IV contrast. Coronal and sagittal reformats were viewed. Automated exposure control was utilized for the study. A dose lowering technique was utilized adhering to the principles of ALARA. FINDINGS: Globes are intact. There is no retrobulbar hematoma. Alignment of the temporomandibular joints is anatomic. No skull base fracture. Orbital floors are intact. Suspected nasal contusion is noted. There is a minimally displaced right nasal bone fracture. IMPRESSION: Minimally displaced right nasal bone fracture, likely acute. Nasal contusion. No additional facial fractures. ACT 112: Negative or not required by law. Electronically signed by: Tej Forte M.D. 02/29/2024 2:[address] 02/29/24 13:48 CT head/brain wo con CLINICAL HISTORY: 78 years-old Female with trauma. Acute head trauma TECHNIQUE: Multiple axial CT images of the head were obtained without contrast. A dose lowering technique was utilized adhering to the principles of ALARA. COMPARISON: 07/28/2013. FINDINGS: No acute intracranial hemorrhage, midline shift, intracranial mass, hydrocephalus, territorial ischemia or abnormal extra-axial collection. Involutional changes with chronic microvascular ischemic disease. There is a 2.4 cm hypodense focus noted within the posterior mid left cerebellum on image 6 series 2 which is new from prior. The calvarium is intact. The paranasal sinuses, mastoid air cells, and middle ear cavities are clear. IMPRESSION: 1. No acute posttraumatic intracranial abnormality or calvarial fracture. 2. 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 ACT 112: Negative or not required by law. The above report was generated using voice recognition software. It may contain grammatical, syntax or spelling errors. Electronically signed by: Elbert Mccormack M.D. 02/29/2024 2:18 PM Hip/Pelvis X-Ray 02/29/24 13:48 XR hip LT 2V w pelvis CLINICAL HISTORY: trauma. Left hip pain. COMPARISON STUDY: Left femur 05/20/2018. FINDINGS: No fracture or dislocation within the pelvis or hips. The sacrum is intact. Mild degenerative changes within the bilateral hips. Soft tissues are unremarkable. IMPRESSION: No fracture or dislocation within the pelvis or hips. ACT 112: Negative or not required by law. Electronically signed by: Tamir Sofia M.D. 02/29/2024 3:58 PM Wrist X-Ray 02/29/24 13:48 XR wrist LT 2V CLINICAL HISTORY: trauma. Fall. Wrist pain. COMPARISON STUDY: None. FINDINGS: The bones are osteopenic. No acute fracture or dislocation within the left wrist. There is mild soft tissue swelling. Mild degenerative changes within the left wrist. IMPRESSION: No acute fracture or dislocation within the left wrist. ACT 112: Negative or not required by law. Electronically signed by: Tamir Sofia M.D. 02/29/2024 3:20 PM Wrist X-Ray 02/29/24 13:48 XR wrist RT 2V HISTORY: 78 years-old Female trauma acute right wrist pain status post fall COMPARISON: None TECHNIQUE: 2 views the right wrist FINDINGS: Demineralized appearance of the bones. [id number] osteoarthritis. No acute fracture, dislocation, osseous erosion or opaque foreign body. IMPRESSION: No acute fracture. ACT 112: Negative or not required by law. The above report was generated using voice recognition software. It may contain grammatical, syntax or spelling errors. Electronically signed by: Elbert Mccormack M.D. 02/29/2024 3:10 PM Carotid Doppler Study 03/01/24 00:00 ULTRASOUND OF THE CAROTID ARTERIES CLINICAL HISTORY: Age indeterminant L cerebellar infarct TECHNIQUE: Real-time, grayscale, and color Doppler sonography of the bilateral carotid arteries is performed. Images are reviewed in the transverse and longitudinal planes. COMPARISON: None available at the time of this dictation. FINDINGS: The carotid arteries are patent bilaterally and demonstrate antegrade flow. There is moderate atherosclerotic plaque on the right and moderate atherosclerotic plaque on the left. Normal doppler arterial waveforms are seen throughout. Velocity measurements are listed below. Common carotid peak systolic velocity (cm/sec): RIGHT: 62 LEFT: 73 ICA peak systolic velocity (cm/sec): RIGHT: 92 LEFT: 59 ICA/CC peak systolic ratio: RIGHT: 1.5 LEFT: 0.8 Antegrade flow was shown in the vertebral arteries. The external carotid arteries are patent. IMPRESSION: 1. There is no sonographic evidence of hemodynamically significant stenosis in the right or left carotid arterial system. 2. Antegrade flow is shown in the vertebral arteries. Society of Radiologists in Ultrasound consensus guidelines: Normal: ICA PSV is <125 cm/sec and no plaque or intimal thickening is visible so nographically additional criteria include ICA/CCA PSV ratio <2.0 and ICA EDV <40 cm/sec <50% ICA stenosis: ICA PSV is <125 cm/sec and plaque or intimal thickening is visible sonographically additional criteria include ICA/CCA PSV ratio <2.0 and ICA EDV <40 cm/sec 50-69% ICA stenosis: ICA PSV is 125-230 cm/sec and plaque is visible sonographically additional criteria include ICA/CCA PSV ratio of 2.0-4.0 and ICA EDV of 40-100 cm/sec ?70% ICA stenosis but less than near occlusion: ICA PSV is >230 cm/sec and visible plaque and luminal narrowing are seen at abreu-scale and color Doppler ultrasound (the higher the Doppler parameters lie above the threshold of 230 cm/sec, the greater the likelihood of severe disease) additional criteria include ICA/CCA PSV ratio >4 and ICA EDV >100 cm/sec ACT 112: Negative or not required by law. Electronically signed by: Faraz Mahmood M.D. 03/01/2024 9:41 AM Brain MRI 03/05/24 14:06 MRI OF THE BRAIN WITHOUT IV CONTRAST CLINICAL HISTORY: Falls. Abnormal CT scan. COMPARISON STUDY: CT of the brain dated 02/29/2024. TECHNIQUE: MRI of the brain was performed utilizing various T1 and T2-weighted sequences in the axial, sagittal, and coronal planes. IV contrast was not administered for this examination. FINDINGS: Brain parenchyma: There is age related involutional change noting mild to moderate subcortical and periventricular microangiopathic disease. There are small chronic infarcts within both frontal lobes, as well as within both cerebellar hemispheres. No restricted diffusion is seen typical for acute ischemia. There is no hemorrhage or mass effect. Abreu-white matter differentiation is preserved. No extra-axial fluid collection is seen. The cerebellar tonsils are normal in configuration. Ventricles, sulci, and cisterns: Prominent secondary to positional change. Pituitary and sella: Unremarkable. Intracranial vasculature: Normal flow voids are maintained at the skull base. Orbits: The bony orbits are grossly intact. Orbital contents are normal in appearance. Sinuses and mastoids: There is trace mucosal thickening within the ethmoid sinuses. The remaining paranasal sinuses are clear. There is trace right mastoid effusion. Calvarium: Unremarkable. Cervical cord: Partially visualized cervical spinal cord is normal in morphology and signal intensity. IMPRESSION: 1. No acute intracranial abnormality. 2. Small chronic infarcts as above. ACT 112: Negative or not required by law. Electronically signed by: Ady Robertson M.D. 03/05/2024 6:05 PM Head MRA 03/05/24 14:06 MR ANGIOGRAM OF THE BRAIN CLINICAL HISTORY: Left cerebellar infarct. COMPARISON STUDY: MRI of the brain performed concurrently on 03/05/2024.. TECHNIQUE: 3-D [id number] MR angiography of the intracranial circulation is performed. 3-D tumble views are created and assessed. IV contrast was not administered for this examination. FINDINGS: The internal carotid arteries are widely patent bilaterally, as are the anterior and middle cerebral arteries. The vertebrobasilar system and posterior cerebral arteries are widely patent. The vertebral arteries are codominant. There is no aneurysm, high-grade stenosis, or focal vessel cutoff seen throughout the intracranial circulation. The brain parenchyma is normal as visualized. IMPRESSION: Unremarkable MR angiogram of the brain. ACT 112: Negative or not required by law. Electronically signed by: Ady Robertson M.D. 03/05/2024 5:57 PM ECHOCARDIOGRAM 03/01/24 Normal LV size with hyperdynamic function. EF >70%. No regional wall motion abnormalities. Severe asymmetric hypertrophy involving the anterior septum, otherwise moderate left ventricular hypertrophy. LVOT obstruction with peak velocity 3.2m/s and peak gradient of 41mmHg. Mild left atrial dilation. Mild mitral stenosis. Aotric valve not well visualized. Technically difficult study. Hospital Course (1) Recurrent falls: 78yo female with PMHx significant for HOCM, HTN, HLD, DM 2, hypothyroidism, CKD, depression/anxiety presented after recurrent falls/syncope at home since discharge on 02/24 Had been discharged off her diltiazem and new start metoprolol 25mg BID and hydralazine 25mg QID along with her clonidine patch and her usual valsartan 80mg PO BID and triamterene-HCTZ BUN 49 at time of discharge, BUN/Cr 139/2.[address] face w/ minimall displaced R nasal bone fracture/contusion. CT head w/ age indeterminate L cerebellar infarct new from 2012 and suspect orthostatic hypotension on admission 2nd to dehydration with diuretics and increased BP medications/possible new CVA but in setting of patient with HOCM, concerns for outflow tract obstruction with concominent dehydration. MRI did confirm old CVA both frontal lobes as well as both cerebellar hemisepheres. Not on ASA 81mg daily and was started and continued at baseline. No bleeding reported and plts remained stable ECHO Normal LV size with hyperdynamic function. EF >70%. No regional wall motion abnormalities. Severe asymmetric hypertrophy involving the anterior septum, otherwise moderate left ventricular hypertrophy. LVOT obstruction with peak velocity 3.2m/s and peak gradient of 41mmHg. Mild left atrial dilation. Mild mitral stenosis. Aotric valve not well visualized. Technically difficult study. Provided 3L IVF on admission, diuretics held. BUN/Cr resolved prior to dc at 19/0.88 and good PO intake/no dehydration on exam AM cortisol not low Cardiology consulted, troponin trending down on repeat and no CP reported and likely 2nd to demand ischemia in setting of dehydration/above. Placed on fludrocortisone and continued daily, norepi level pending at dc and may be candidate for droxidopa in follow up with cardiology Resumed and continued on metoprolol 25mg PO BID to improve cardiac output with resolution in symptoms and improvement in BP/orthostatics. Discussed given weights up and slightly volume up, did resume HCTZ low dose 12.5mg daily (ok'd per discussion w/ cardiology given persistant elevated BP) along with KCL supplementation and continue at discharge and additional BP agents/adjustments to be made in follow up with cardiology. BP 149/76 prior to discharge. Encouraged continued bowel regimen and has been moving them (noting had declined multiple doses of miralax) To monitor weights and alert primary/cards of weight gain but remained on room air without increased LE edema PT/OT consulted and arrangements made for ongoing rehab at SNF/[facility]. Cm arranging transportation. Alerted to return if any repeat symptoms. Rec repeating labs this upcoming week to ensure electrolytes stable on such. (2) Hypertrophic obstructive cardiomyopathy (HOCM): Likely a contributing factor in recurrent syncope but also w/ her old CVAs in cerebellum may be contributing. Suspect medications including combination of clonidine and diuretics/ARB in setting of HOCM contributing Cardiology consulted, telemetry monitoring, metoprolol increased as above and discussed w/ cards prior ok to resume low dose HCTZ Further management in f/u with cards (has been seen by Dr Colon previously as outpatient) Telemetry stable over past 24 hours, occasional PVC/PAC but asymptomatic and electrolytes stable. Rec repeat labs this upcoming week as above (3) CVA (cerebral vascular accident): Head CT revealed age-indeterminate left cerebellar infarct (new from 2013 comparison) Carotid dopplers without significant stenosis Brain MRI/MRA reordered 03/05 with premedication -MRI noting Small chronic infarcts as above, no new findings. MRA unremarkable -Continued on ASA 81mg, new rx at dc Discussed to monitor for any bleeding w/ her thrombocytopenia but plts stable/improved on last check, no bleeding (4) Labile hypertension: Hx of labile hypertension - last admission (02/15-02/21) Diltazem was changed to metoprolol and prn PO clonidine changed to scheduled PO hydralazine - patient was using clonidine patch, however had one on prior (placed 02/18), since removed. Not to continue as below METOPROLOL INCREASED BACK TO 25mg BID ABOVE -- CONTINUE home Valsartan, hydralzine, clonidine and prn triamterene-HCTZ ON HOLD ABOVE -- resumed HCTZ 12.5mg given ongoing BP and stable orthostatics and renal function as outlined above (5) SUNNY (acute kidney injury): BUN/Cr 139/2.18 on admission w/ baseline Cr ~1.2 Home valsartan, triamterene-HCTZ on hold as above, resumed low dose HCTZ and renal function remaining stable. Discussed may need further increase in diuretics if keeping up with oral intake and avoidance of dehydration. BUN/Cr normalized as above prior to dc Repeat labs this upcoming week as outlined (6) Elevated troponin: Type 2 IA due to demand ischemia Troponin 843.3-->842.6 --> 330 --> 148 ECG sinus rhythm with PACs Denied CP Cards consulted as above (7) Hypermagnesemia: Magnesium 3.3 on arrival, fluids provided, now resolved however rac repeating w/ BMP to ensure stable as can be lowered w/ fludrocortisone (8) Type 2 diabetes mellitus with obesity: Last A1c 7.1% on 12/23/2023 Home regiment is insulin 70/30 - 7 units BID, and metformin 500mg BID Lantus 4u BID on admission w/ SSI, increased to 6u BID and then to 7u BID on 03/07 --> increased back to 8u BID w/ improvement and improved but does have lunch time elevation and will adjust SSI CR 8--> 5, continue CF 15 Resume home dosing at ok and continued monitoring/follow up with PCP. No hypoglycemia on admit (9) Abdominal pain: Lipase elevated on admission, patient without abdominal pain, recheck improving 03/04 reporting abdominal pain, and feels like she needs to have a BM, however abdomen is diffusely tender 03/05 abdominal pain improving, plan for miralax this afternoon. No LFT elevations, lipase WNL 03/06-- +BS throughout, passing LOTS of gas. Ambulation increased and feels like has to have bowel movement and will have RN provide additional dose miralax 03/07- small BM overnight, increased miralax to TID, senna added. 03/08-- large BM last evening and into this morning. 03/09- small BM, +BS on exam, slightly distended and remains on bowel regimen and continues w/ ambulation 03/10 - passing lots of gas, slightly distended -- going to bathroom to "take a load off" when leaving exam and will monitor for BM. Continue bowel regimen 03/11- multiple BMs day prior, smaller. encouraged to be more compliant with bowel regimen at ok (10) Thrombocytopenia: chronically low platelets. Appears not worse than prior. No bleeding reported (did have some when fell/smashed her nose on admission w/ syncopal episode) Is on aspirin and as above, plts remaining stable Appears hx HCV cirrhosis in chart- PCP notes ?blood transfusion related in past reported w/ [facility] transfusion in [place] many years ago Tx w/ Tanisha in 2014. Pref not to follow w/ hepatology. pepcid for gi proph daily Consideration for EGD/EMIR US next visit w/ PCP if pt agreeable. Plan Discharged to [facility] for ongoing rehab. Outpt f/u PCP and cardiology, consideration for GI w/ EGD/RUQ US next visit Total Time Total Time Spent Total Time Spent (In Minutes): 60 Discharge Plan Discharge Items Patient Disposition: Transfer Detention Fac Reason For Visit: RECURRENT FALLS Discharge Diagnosis: Recurrent falls, syncope, left ventricular outflow tract obstruction, dehydration Goals: You have been hospitalized for an acute medical problem. During your stay at [facility], we have made an effort to correct the problem that brought you to the hospital while keeping you as comfortable as possible. Medications were used to bring your condition under control and your discharge instructions will include directions for any medications you should take after leaving the hospital. Please make sure you see your Primary Care Provider as part of your follow up plan. Activity: As commented below Non-emergency contact: Primary Care Provider and Meteorology Teacher Call non-emergency contact if: you have any medication questions, your symptoms worsen and your pain is not controlled Follow-up/Referrals: Spenser Castano MD [Physician] - Katelyn Stark MD [Primary Care Provider] - 03/21/24 3:00 pm (Hosp d/c appt made 03/21/24 @ 3:00 with Delmis Mata PA-C) Diet: Carb Consistent or DM2 and Heart Healthy Addtl Attending Provider Instructions: You have been hospitalized for syncope/fall. This is likely in the setting of dehydration and medications called diuretics with an outflow tract obstruction (narrowing of the pumping out of your heart) which contributed to your symptoms. Your medications were held and provided IV fluids and hydration and you were started on fludrocortisone which should continue while norepinephrine levels are pending. You are to continue metoprolol 25mg by mouth twice daily along with baby aspirin for old strokes noted on your imaging. You are to continue HCTZ 12.5mg daily along with potassium supplementation and monitor your weights as you likely will need this increased or addition of s pironolactone pending follow up. You should continue miralax twice daily with colace to help with your bowels. Arrangements have been made for [facility] for ongoing rehab. Would have repeat labs with BMP and Magnesium in the next 3-5 days to ensure electrolytes remain stable. Please follow up with primary care and cardiology at discharge in the next week. Please return to the ER with any chest pain, shortness of breath, or for any symptoms concerning for you. Take care! Pending Studies at Discharge: Yes Studies:: norepinephrine Stand-Alone Forms: My [facility] Skilled Items Patient informed of condition?: Yes DNR: Yes Discharge Level of Care: Skilled Communicable Disease: No Discharge Prognosis: Stable Lines: None Urinary Catheter: No Medications and DC Order Prescriptions: New famotidine [Acid Blueprint Machine Operator (famotidine)] 10 mg Tablet 10 mg PO QAM Qty: 30 0RF polyethylene glycol 3350 [Miralax] 17 gram Powder In Packet 17 g PO TID Qty: 30 0RF aspirin 81 mg Tablet,Delayed Release (Dr/Ec) 81 mg PO QAM Qty: 30 0RF docusate sodium 100 mg Capsule 100 mg PO BID Qty: 60 0RF hydrochlorothiazide 25 mg Tablet 12.5 mg PO QAM Qty: 30 0RF fludrocortisone 0.1 mg Tablet 0.1 mg PO QAM Qty: 30 0RF potassium chloride 20 mEq tablet extended release 20 meq PO DAILY Qty: 30 0RF Continued (DME) lancets 30 gauge misc See Rx Instructions .Route Qty: 400 3RF Rx Instructions: Test blood sugars 4 times a day (DME) True Metrix Glucose Test Strip Strip See Rx Instructions .ROUTE .COMPLEX Qty: 300 3RF Dose Instruction: TEST BLOOD SUGAR THREE TIMES DAILY Rx Instructions: TEST BLOOD SUGAR THREE TIMES DAILY insulin asp prt-insulin aspart 100 unit/mL (70-30) insulin pen 7 unit subcut BID 90 Days Qty: 15 3RF Ozempic 0.25 mg or 0.5 mg (2 mg/3 mL) pen injector 0.25 mg subcut Q7D Qty: 9 1RF Rx Instructions: TAKE THIS MED EVERY TUESDAY levothyroxine 88 mcg tablet 88 mcg PO DAILY Qty: 90 3RF sertraline 100 mg tablet 100 mg PO DAILY Qty: 90 3RF (DME) Prodigy No Coding Strip See Rx Instructions .Route Rx Instructions: Test blood sugar four times daily pravastatin 40 mg tablet 40 mg PO HS Qty: 90 3RF metformin 500 mg tablet 500 mg PO BID Qty: 180 3RF cranberry 500 mg Capsule 1,500 mg PO DAILY Rx Instructions: administer with meals metoprolol tartrate 25 mg Tablet 25 mg PO BID Qty: 60 0RF Discontinued valsartan 80 mg tablet 80 mg PO BID Qty: 180 3RF triamterene-hydrochlorothiazid 37.5-25 mg tablet 1 tab PO Q2D Qty: 90 3RF clonidine 0.3 mg/24 hr patch weekly 1 patch transdermal WK Qty: 4 8RF Rx Instructions: PER PT "STILL THE SAME ONE FROM MY HOSPITAL STAY". hydralazine 25 mg Tablet 25 mg PO TID Qty: 100 0RF Rx Instructions: PER PT "THINK THEY TOLD ME TO STOP THIS MED" UNSURE. No Action (DME) pen needle, diabetic [BD Ultra-Fine Lin Pen Needle] 32 gauge x 5/32" needle See Rx Instructions .ROUTE .MEDSUPPLY Qty: 200 3RF Rx Instructions: use 2 needles daily Discharge Orders: Discharge Order (Routine); Ordered 03/11/24 Ordered By: Faustina Jo Admission Data Admit Date/Time: 02/29/24 17:03 Attending Provider: Bradley Moreno Admit Provider: Antolin Loja Primary Care Provider: Katelyn Stark Other Providers: Antolin Loja; Bob Ellis; [facility], Other Interventions: Discharge Summary Assessment (RN) Last Done: 03/11/24 12:19 Supervising Physician Co-Signing Physician Notes The patient was not seen by me. The chart was reviewed. Case discussed with TK Mathis. Agree with assessment and plan. 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
== END 2024-03-11 13:32 | DRG 64 ==
LOC: ED 12:57 → SUATTDRO 17:03 → EDINP 17:03 → 4W 17:40